=== PATIENT | male | born 1965 | race Hispanic/Latino ===

== ENCOUNTER 2017-07-16 17:16 | Emergency (ER) | payer SELFPAY ==
[2017-07-16] MEDS ORDERED: Ondansetron HCl/PF 4 MG/2 ML Vial ONE ×2 (17:32→18:51)
[2017-07-16] MEDS ORDERED: Pantoprazole 40 MG VIAL ONE (17:32)
[2017-07-16 17:40] LABS: #Lymphocytes 0.9 thou/uL (1.20-3.40); #Monocytes 0.6 thou/uL (0.11-0.59); #Neutrophils 6.9 thou/uL (1.40-6.50); %Basophils 0.3 % (0.0-1.0); %Eosinophils 0.2 % (0.0-10.0); %Lymphocytes 11.1 % (21.0-51.0); %Monocytes 6.5 % (0.0-10.0); Hematocrit 41.4 % (42.0-52.0); Red Blood Cell (RBC) Count 4.35 mill/uL (4.70-6.10); White Blood Cell (WBC) Count 8.5 thou/uL (4.8-10.8)
[2017-07-16 17:45] LABS: PTT 34.6 SEC (22.9-36.1); Prothrombin Time 17.8 SEC (12.0-14.7)
--- NOTE | 2017-07-16 17:52 | RAD ---
UIPRIGHT PORTABLE CHEST ONE VIEW: History: 52-year-old male with chest pain and vomiting blood. FINDINGS: Monitor leads overlie the chest. Heart size is within normal limits. The lungs are clear. IMPRESSION: No acute intrathoracic disease. POS: [facility]
[2017-07-16 17:59] LABS: ALT (SGPT) 38 U/L (8-55); AST (SGOT) 46 U/L (5-34); Alkaline Phosphatase 97 U/L (40-150); Anion Gap 16 mmol/L (10-20); BUN (Urea Nitrogen) 21 mg/dL (8.9-20.6); Calc. Creatinine Clearance 0 mL/min (70-130); Calcium 8.6 mg/dL (7.8-10.44); Carbon Dioxide 21 mmol/L (22-29); Chloride 102 mmol/L (98-107); Estimated GFR-MDRD Greater than 90; Globulin 4.3 g/dL (2.4-3.5); Lipase 19 U/L (8-78); Magnesium 1.8 mg/dL (1.6-2.6); Protein, Total 7.3 g/dL (6.0-8.3)
[2017-07-16 18:02] LABS: Mean Platelet Volume 8.2 fL (7.4-10.4)
[2017-07-16 18:03] LABS: Troponin I 0.015 ng/mL (< 0.028)
[2017-07-16 19:06] LABS: Bilirubin Negative (Negative); Blood, Urine Negative (Negative); Glucose, Urine (Dipstick) >=1000 mg/dL (Negative); Ketone, Urine 40 mg/dL (Negative); Nitrite Negative (Negative); Protein, Urine (Dipstick) Negative (Neg-Trace); Urobilinogen 0.2 mg/dL (0.2-1.0)
--- NOTE | 2017-07-16 20:54 | ULT ---
RIGHT UPPER QUADRANT ULTRASOUND: History: 52-year-old male with right upper quadrant pain, chest pain, nausea, vomiting. History of alcohol us e. FINDINGS: The gallbladder wall appears to be somewhat thickened with some pericholecystic fluid. There are no definite gallstones. Liver echotexture is very heterogeneous throughout with some nodularity raising concern for the possibility of some cirrhosis. Common duct approximates 0.5 cm. According to the trasound technologist, the Valencia's sign was slightly positive. Pancreas is mostly obscured. The rig ht kidney is unremarkable. IMPRESSION: Some gallbladder wall thickening and pericholecystic fluid without overt gallstones or ductal dilata tion. Normal liver echotexture with very coarse appearance and some minimal capsular nodularity rais ing concern for possibility of some cirrhosis. Slightly positive Valencia's sign. If there is concern for acute cholecystitis, follow up nuclear medicine hepatobiliary scan might be considered. POS: [facility]
== END 2017-07-16 21:25 | disposition home or self-care (01) ==
LOC: ERS 17:16
DX: K92.2 Gastrointestinal hemorrhage, unspecified (principal)
CPT/HCPCS: 71010; 76705; 80053; 81003; 82553; 83690; 83735; 84484; 85025; 85610; 85730; 93005; 96361; 96374; 96375; 96376; C9113; J2405

== ENCOUNTER 2017-07-17 15:18 | Inpatient (IN) | payer SELFPAY ==
[2017-07-17 16:02] LABS: #Basophils 0.1 thou/uL (0.0-0.2); #Eosinphils 0.1 thou/uL (0.0-0.7); #Lymphocytes 1.6 thou/uL (1.20-3.40); #Monocytes 1.1 thou/uL (0.11-0.59); #Neutrophils 7.8 thou/uL (1.40-6.50); %Basophils 0.6 % (0.0-1.0); %Eosinophils 0.7 % (0.0-10.0); %Lymphocytes 14.9 % (21.0-51.0); %Monocytes 10.2 % (0.0-10.0); Hematocrit 29.6 % (42.0-52.0); Mean Platelet Volume 8.6 fL (7.4-10.4); Red Blood Cell (RBC) Count 3.05 mill/uL (4.70-6.10); White Blood Cell (WBC) Count 10.5 thou/uL (4.8-10.8)
[2017-07-17] MEDS ORDERED: Pantoprazole 40 MG VIAL ONE (16:12)
[2017-07-17 16:19] LABS: ALT (SGPT) 29 U/L (8-55); AST (SGOT) 29 U/L (5-34); Alkaline Phosphatase 70 U/L (40-150); Anion Gap 9 mmol/L (10-20); BUN (Urea Nitrogen) 26 mg/dL (8.9-20.6); Bilirubin, Total 2.1 mg/dL (0.2-1.2); Calc. Creatinine Clearance 0 mL/min (70-130); Carbon Dioxide 25 mmol/L (22-29); Chloride 103 mmol/L (98-107); Estimated GFR-MDRD Greater than 90; Globulin 3.3 g/dL (2.4-3.5); Protein, Total 5.9 g/dL (6.0-8.3)
[2017-07-17 16:24] LABS: Prothrombin Time 19.4 SEC (12.0-14.7)
[2017-07-17 18:38] VITALS: BMI 35.5
[2017-07-17] MEDS ORDERED: Ondansetron HCl/PF 4 MG/2 ML Vial IVP PRN (18:38)
[2017-07-17] MEDS ORDERED: Ondansetron ODT 4 MG TAB SL PRN (18:38)
[2017-07-17] MEDS ORDERED: Dextrose 50% Abboject 50 ML SYRINGE SLOW IVP PRN (18:45)
[2017-07-17] MEDS ORDERED: Lactated Ringer's 1,000 ML IV SCH (18:45)
[2017-07-17] MEDS ORDERED: Dextrose 5% in Water 1,000 ML IV PRN (18:45)
[2017-07-17] MEDS ORDERED: HumaLOG 300 UNITS/3 ML VIAL SC PRN (18:45)
[2017-07-17] MEDS ORDERED: Sodium Chloride 0.9% 2,000 ML IV SCH (19:00)
[2017-07-17] MEDS ORDERED: Sodium Chloride 0.9% 1,000 ML IV SCH (19:15)
[2017-07-17] MEDS ORDERED: Octreotide Acetate 1,250 MCG in Sodium Chloride 0.9% 250 ML 250 ML IVPB SCH (19:15)
[2017-07-17 19:32] LABS: Hematocrit 28.3 % (42.0-52.0)
--- NOTE | 2017-07-17 19:36 | HP ---
DATE OF ADMISSION: 07/17/2017 CHIEF COMPLAINT: Pooping and throwing up blood. HISTORY OF PRESENT ILLNESS: Mr. Cash is a 52-year-old male with history of alcohol abuse what looks to be diabetes. The patient was in normal state of health. He yesterday develope d multiple black tarry stools and one episode of hematemesis. He has some chest discomfort with nicko t, so came to the emergency department for evaluation. His hemoglobin was normal at 14.1. I had no episodes here so he was discharged home with outpatient followup. Ultrasound yesterday showed poss ible cirrhosis and possible cholecystitis. Today, he saw Dr. Junior at the GI clinic. After getting history of melena, hematochezia, he was se nt back to the emergency department for evaluation. He has been lightheaded. He has continued to have melanotic stools every 5-10 minutes. He had one episode of vomiting today with a little bit of red blood in it, but not as bad as yesterday. Denies any chest pain or shortness of breath, no other complaints. Here in the ER today, his hemoglobin has dropped from 14.1 yesterday to 10.0 today. We subsequently called for admit. PAST MEDICAL HISTORY: 1. Alcohol abuse. 2. Probable diabetes. PAST SURGICAL HISTORY: Includes open middle ear infection debridement. HOME MEDICATIONS: Omeprazole 40 mg p.o. b.i.d. started yesterday here in the ER. He only took one dose. ALLERGIES: NKDA. FAMILY HISTORY: Negative for clotting or bleeding disorder, no immune dysfunction. SOCIAL HISTORY: Drinks greater than 10 drinks a day. He says sometimes upwards of a case of beer i n one day. No tobacco, no IV drug use. He is . REVIEW OF SYSTEMS: A 10-point review of systems was performed, negative for all other systems excep t as stated as per HPI. PHYSICAL EXAMINATION: VITAL SIGNS: Temperature 98.0, pulse 105, blood pressure 137/80, respiratory 18, O2 sat 98% on room air. GENERAL: He is awake. He is alert. He is oriented x3. He is a well-developed, mal e appears to be in no acute distress. HEENT: Normocephalic, atraumatic. Pupils equal, round, reactive to light bilaterally. Mucous memb ranes are moist. No visible lesion. No thrush. He does have scleral icterus. NECK: Supple, without lymphadenopathy, JVD or thyromegaly. LUNGS: Clear to auscultation bilaterally without wheezes, rales or rhonchi. CARDIOVASCULAR: Normal S1, S2. He has no S3, S4. He is slightly tachycardic, but regular. ABDOMEN: Soft, is nontender. I cannot palpate the liver edge. He has no fluid wave. No shifting dullness. He has no rebound, rigidity or guarding, and a possible mild Valencia sign. SKIN: Without jaundice. EXTREMITIES: Warm, moist, and well perfused without rashes or lesions. MUSCULOSKELETAL: Normal to inspection. He has no inflamed joint or no palpable joint effusion. NEUROLOGIC: Cranial nerves II-XII are grossly intact without any focal neurologic deficits. LABORATORY DATA: CMP showed a sodium of 133, potassium 4.3, chloride 103, bicarb 25, BUN 26, creati nine 0.69, and glucose of 312. INR is 1.6. Total bilirubin today is 2.1, down from 3.0 yesterday. Liver functions are otherwise normal. Albumin is low at 2.6. White blood cell count is 10.5, hemoglobin is 10.0 down from 14.1 yesterday, and platelets are 107,0 00 about the same. RADIOGRAPHIC STUDIES: 1. On 07/15/2017, ultrasound showed possible early cirrhosis. He has a slightly positive Valencia si gn. He did have some pericholecystic fluid, but no gallbladder wall thickening and no evidence of s tone blockage. 2. On 07/16/2017, he had a chest x-ray that showed no acute cardiopulmonary disease. ASSESSMENT AND PLAN: 1. Upper gastrointestinal bleed: The patient had hematemesis and melena. Suspect either peptic ul cer/duodenal ulcer or portal gastropathy with esophageal or gastric varices. The patient was starte d on Protonix drip in the emergency department, which we will continue. We will start on octreotide drip. GI, Dr. Altman, has been consulted. We will have the nurses call him tonight to make him awar e of the patient in case having changes. I will get serial H\T\Hs. I will give him a 2 liter bolus of normal saline, and continue IV fluids at 150 mL per hour. I will transfuse as needed. Keep the patient n.p.o. as he likely will need to go for EGD tomorrow. 2. Acute blood loss anemia: Hemoglobin is down to 10 likely will be less once he gets rehydrated. 3. Hyperglycemia: Probably representing diabetes mellitus type 2. We will check hemoglobin A1c in the morning. We will use sliding scale insulin per correction. Once he is able to eat, we will pl stephanie him on a diabetic diet and have the educator see him. We will get a q.6h Accu-Cheks n.p.o. 4. Alcohol abuse: Counseling. The patient will watch very closely for signs of withdrawal.
[2017-07-17] MEDS: Pantoprazole 80 MG, Admixture Fee 1 EACH in Sodium Chloride 0.9% 100 ML IVP SCH (20:33)
[2017-07-17] MEDS: Sodium Chloride 0.9% 1,000 ML IV SCH (20:47)
[2017-07-18] MEDS: Sodium Chloride 0.9% 1,000 ML IV SCH ×4 (03:26→22:48)
[2017-07-18] MEDS: Pantoprazole 80 MG, Admixture Fee 1 EACH in Sodium Chloride 0.9% 100 ML IVP SCH ×2 (03:26→14:06)
[2017-07-18 04:47] LABS: ALT (SGPT) 24 U/L (8-55); AST (SGOT) 30 U/L (5-34); Alkaline Phosphatase 55 U/L (40-150); Anion Gap 6 mmol/L (10-20); BUN (Urea Nitrogen) 23 mg/dL (8.9-20.6); Bilirubin, Total 1.4 mg/dL (0.2-1.2); Calc. Creatinine Clearance 206 mL/min (70-130); Calcium 7.6 mg/dL (7.8-10.44); Carbon Dioxide 25 mmol/L (22-29); Chloride 109 mmol/L (98-107); Estimated GFR-MDRD Greater than 90; Globulin 2.8 g/dL (2.4-3.5); Protein, Total 5.2 g/dL (6.0-8.3)
[2017-07-18 05:32] LABS: #Basophils 0.1 thou/uL (0.0-0.2); #Eosinphils 0.1 thou/uL (0.0-0.7); #Lymphocytes 1.4 thou/uL (1.20-3.40); #Monocytes 0.7 thou/uL (0.11-0.59); #Neutrophils 3.6 thou/uL (1.40-6.50); %Basophils 1.1 % (0.0-1.0); %Eosinophils 2.1 % (0.0-10.0); %Monocytes 12.3 % (0.0-10.0); Hematocrit 25.7 % (42.0-52.0); Mean Platelet Volume 8.6 fL (7.4-10.4); Red Blood Cell (RBC) Count 2.62 mill/uL (4.70-6.10); White Blood Cell (WBC) Count 5.9 thou/uL (4.8-10.8)
[2017-07-18 07:27] LABS: Hematocrit 26.8 % (42.0-52.0)
[2017-07-18] MEDS ORDERED: FLU VACC QS2017-18 36 mo. & older 0.5 ML SYRINGE IM ONE (09:00)
[2017-07-18 10:21] LABS: Hematocrit 27.7 % (42.0-52.0)
--- NOTE | 2017-07-18 10:28 | PDOC.PN ---
- Subjective Encounter Start Date: 07/18/17 Encounter Start Time: 07:30 PT reorts less melena and small amount of hematemesis. Nursing reports 3 overnight. TOlerating meds. Awaiitng GI consultation. no F/C, no Nausea, no CP or sOB, no anxiety or agitation 10 point ROS performed and neg fora ll systems except as per HPI. at bedside, updated. - Objective Resuscitation Status: Resuscitation Status FULL:Full Resuscitation MAR Reviewed: Yes Vital Signs & Weight: Vital Signs (12 hours) Temp Pulse Resp BP BP Pulse Ox 07/18/17 07:21 98.5 F 76 20 106/56 L 98 07/18/17 03:42 97.9 F 70 16 109/47 L 97 07/17/17 23:40 98.6 F 87 14 114/58 L 95 Weight Weight 218 lb 4.8 oz I&O: 07/17/17 07/18/17 07/19/17 06:59 06:59 06:59 Intake Total 3150 Output Total 700 Balance 2450 Result Diagrams: 07/18/17 10:07 07/18/17 04:07 Additional Labs: Accuchecks 07/18/17 07/17/17 05:35 23:38 POC Glucose 196 H 211 H Radiology Reviewed by me: Yes EKG Reviewed by me: Yes Phys Exam - Physical Examination Constitutional: NAD HEENT: PERRLA, moist MMs, oral pharynx no lesions scleral icterus much better Neck: no nodes, no JVD, supple, full ROM Respiratory: no wheezing, no rales, no rhonchi, clear to auscultation bilateral Cardiovascular: RRR, no significant murmur, no rub Gastrointestinal: soft, non-tender, no distention, positive bowel sounds Musculoskeletal: pulses present, edema present Neurological: non-focal, normal sensation, moves all 4 limbs Lymphatic: no nodes Psychiatric: normal affect, A&O x 3 Skin: no rash, normal turgor, cap refill <2 seconds Dx/Plan (1) UGIB (upper gastrointestinal bleed) Code(s): K92.2 - GASTROINTESTINAL HEMORRHAGE, UNSPECIFIED Status: Acute Comment: PUD/DU or variceal. On protonix gtt, on octreotide gtt. H/H stalbized out now. awaiting GI eval. Pt NPO for expected EGD (2) Acute blood loss anemia Code(s): D62 - ACUTE POSTHEMORRHAGIC ANEMIA Status: Acute Comment: stable at around 9 at present (3) Cirrhosis Code(s): K74.60 - UNSPECIFIED CIRRHOSIS OF LIVER Status: Acute Qualifiers: Hepatic cirrhosis type: alcoholic cirrhosis Ascites presence: with ascites Qualified Code(s): K70.31 - Alcoholic cirrhosis of liver with ascites Comment: small amount of ascites, U/Ds compatible with early cirrhosis. (4) ETOH abuse Code(s): F10.10 - ALCOHOL ABUSE, UNCOMPLICATED Status: Chronic Comment: watching for S/Sx of withdrawl (5) DM2 (diabetes mellitus, type 2) Status: Acute Qualifiers: Diabetes mellitus complication status: without complication Diabetes mellitus skilled nursing insulin use: without skilled nursing use Qualified Code(s): E11.9 - Type 2 diabetes mellitus without complications Comment: newly diagnoses. SSI for now. A1C for AM - Plan cont current plan of care * .
[2017-07-18] MEDS ORDERED: Propofol 200 MG/20 ML VIAL ONE (18:34)
[2017-07-18] MEDS ORDERED: Meperidine HCl/PF 25 MG/ML VIAL SLOW IVP PRN (19:05)
[2017-07-18] MEDS ORDERED: Promethazine HCl 25 MG/ML VIAL IM PRN (19:05)
[2017-07-18] MEDS ORDERED: Promethazine HCl 25 MG/ML VIAL SLOW IVP PRN (19:05)
[2017-07-18] MEDS ORDERED: Ondansetron HCl/PF 4 MG/2 ML Vial IVP PRN (19:05)
--- NOTE | 2017-07-18 19:09 | CON ---
DATE OF CONSULTATION: 07/18/2017 TYPE OF CONSULTATION: Gastroenterology Consultation. CHIEF COMPLAINT: Blood in stool. HISTORY OF PRESENT ILLNESS: Mr. Cash is a 52-year-old man who presented to the emergency room cruz ginally the day before yesterday. He had reported vomiting coffee ground material and passing black stools. He had a hemoglobin of 14 and was ultimately discharged from the ER and he followed up in GI clinic with Dr. Junior yesterday the next day. Dr. Junior examined him and the patient was found again to have melena and tachycardia and he was admitted to the hospital from clinic. He was start ed on pantoprazole drip and octreotide drip. GI was consulted for further management. Currently, alma mijares reports having passed 2 black stools yesterday and vomiting some coffee ground material and passin g black stools the day before that. Today, he has had no further vomiting, but he has passed 2 or 3 black stools again. He did have some aching pain in the lower substernal region yesterday, but nicko t has since resolved. He has had no diarrhea or constipation, otherwise. No weight loss. No fever or chills. PAST MEDICAL HISTORY: Otherwise, negative. PAST SURGICAL HISTORY: He had a surgery above his right ear for an infection many years ago. FAMILY HISTORY: Negative for GI malignancies. SOCIAL HISTORY: Drinks a case of beer per day. He does not smoke. No drugs. ALLERGIES: No known drug allergies. MEDICATIONS PRIOR TO ADMISSION: None. REVIEW OF SYSTEMS: Negative x10 systems reviewed except as stated in the history of present illness . PHYSICAL EXAMINATION: VITAL SIGNS: Temperature 98.6, pulse 68, blood pressure 127/65. GENERAL: He is in no acute distress, awake, alert, and oriented x3. EYES: Eyes have no scleral icterus. OROPHARYNX: Clear without lesions. NECK: No cervical or supraclavicular lymphadenopathy. SKIN: He has spider angiomas on the upper skin on dermatologic exam. LUNGS: Clear to auscultation bilaterally. HEART: Regular rate and rhythm without murmur. ABDOMEN: Soft, nontender, nondistended. Bowel sounds are present. EXTREMITIES: No lower extremity edema. NEUROLOGIC: There is no asterixis. LABORATORY DATA: White blood cell count 5.9, hemoglobin is down to 8.8 from 14.1 two days ago, plat elets 67,000. His INR is 1.6, creatinine 0.60, bilirubin 1.4, AST 30, ALT 24, alkaline phosphatase 55, albumin 2.4. IMPRESSION: 1. Decompensated alcoholic cirrhosis. He has a nodular liver by ultrasound. We will need to check viral hepatitis status and an iron saturation. 2. Gastrointestinal bleed. Rule out varices. 3. Anemia of acute blood loss. 4. Alcohol abuse. RECOMMENDATIONS: 1. Proton pump inhibitor drip. 2. Octreotide drip. 3. He has no ascites and therefore, we will hold off antibiotics at this time. PLAN: 1. EGD today. 2. Follow the trend of the hemoglobin. 3. Check alpha fetoprotein and viral hepatitis screen and iron saturation.
[2017-07-18 19:13] LABS: Iron 40 ug/dL (65-175)
--- NOTE | 2017-07-18 19:21 | OP ---
DATE OF PROCEDURE: 07/18/2017 PROCEDURE: Esophagogastroduodenoscopy with control of hemorrhage with banding of esophageal varices . PREOPERATIVE DIAGNOSIS: Gastrointestinal bleed and anemia of acute blood loss and cirrhosis of the liver. OPERATIVE NOTE: Informed consent was obtained from the patient. He was sedated with total intraven ous anesthesia. The bite block was placed and the endoscope was advanced easily to the second porti on of the duodenum and retroflexion was performed in the stomach. The esophagus had 3 columns of gr cherie 2 varices with few red signs in the distal esophagus. There was one column of grade 1 varix. T here were no gastric varices noted on retroflexed views. There was mild erosive gastritis in the an trum. The pylorus and first and second portions of the duodenum were normal. Four rubber bands wer e placed over the esophageal varices. Good hemostasis was confirmed. There was no active bleeding at the time of the procedure. There was no blood in the stomach. IMPRESSION: 1. Three columns grade 2 varices with red signs, one column of grade 1 varix. 2. Mild erosive antral gastritis. 3. Otherwise normal esophagogastroduodenoscopy. No gastric varices. 4. Four bands were placed over the esophageal varices. There was no active bleeding at the time of the procedure. Good hemostasis was confirmed. RECOMMENDATIONS: 1. Continue octreotide. 2. Change the Protonix to q.12 hours. 3. Check H. pylori antibody. 4. Consider repeat EGD in 2-4 weeks to reassess the banding sites and place new bands if indicated.
--- NOTE | 2017-07-18 20:05 | ADD-OP ---
ADDENDUM PROCEDURE: Four rubber bands were placed over the esophageal varices. Good hemostasis was confirme d. There was no active bleeding at the time of the procedure. There was no blood in the stomach. IMPRESSION: Four bands were placed over the esophageal varices. There was no active bleeding at th e time of the procedure. Good hemostasis was confirmed. RECOMMENDATIONS: Consider repeat EGD in 2-4 weeks to reassess the banding sites and place new bands if indicated.
[2017-07-19] MEDS: Pantoprazole 80 MG, Admixture Fee 1 EACH in Sodium Chloride 0.9% 100 ML IVP SCH (02:17)
[2017-07-19 04:54] LABS: #Basophils 0.1 thou/uL (0.0-0.2); #Eosinphils 0.1 thou/uL (0.0-0.7); #Lymphocytes 0.9 thou/uL (1.20-3.40); #Monocytes 0.4 thou/uL (0.11-0.59); %Basophils 1.1 % (0.0-1.0); %Eosinophils 3.2 % (0.0-10.0); %Lymphocytes 19.5 % (21.0-51.0); %Monocytes 9.7 % (0.0-10.0); Hematocrit 25.2 % (42.0-52.0); Mean Platelet Volume 8.6 fL (7.4-10.4); Red Blood Cell (RBC) Count 2.57 mill/uL (4.70-6.10); White Blood Cell (WBC) Count 4.5 thou/uL (4.8-10.8)
[2017-07-19 05:14] LABS: Anion Gap 10 mmol/L (10-20); BUN (Urea Nitrogen) 21 mg/dL (8.9-20.6); Calc. Creatinine Clearance 225 mL/min (70-130); Calcium 7.2 mg/dL (7.8-10.44); Carbon Dioxide 21 mmol/L (22-29); Chloride 111 mmol/L (98-107); Estimated GFR-MDRD Greater than 90
[2017-07-19 05:17] LABS: Hemoglobin A1c 6.3 % (4.0-6.0)
[2017-07-19] MEDS: Sodium Chloride 0.9% 1,000 ML IV SCH ×2 (05:43→14:42)
--- NOTE | 2017-07-19 10:32 | PDOC.PN ---
- Subjective Encounter Start Date: 07/19/17 Encounter Start Time: 08:00 Pt seen and exmained earlier on rounds. EGD last evening, esophagela varies seen, Abd U/S confirmed cirrhosis. PT received 4 varcials bands, no evifdence of further bleeding. H/h stable, hungry. Octreotide stopped by GI, no ulcers seen. No new complaints, no acute events. No F/C, no N/V/d/C, no CP orSOB, no signs of withdrawl 10 point ROS performed and neg for all systems except as above - Objective Resuscitation Status: Resuscitation Status FULL:Full Resuscitation MAR Reviewed: Yes Vital Signs & Weight: Vital Signs (12 hours) Temp Pulse Resp BP Pulse Ox 07/19/17 07:17 98.9 F 81 15 130/65 98 07/19/17 04:00 98.1 F 72 18 120/66 98 07/19/17 00:00 98.2 F 72 18 103/64 97 Weight Weight 216 lb 14.4 oz I&O: 07/18/17 07/19/17 07/20/17 06:59 06:59 06:59 Intake Total 3150 1800 Output Total 700 Balance 2450 1800 Result Diagrams: 07/19/17 03:54 07/19/17 03:54 Additional Labs: Accuchecks 07/19/17 07/19/17 07/18/17 05:45 00:16 17:06 POC Glucose 149 H 145 H 170 H 07/18/17 11:51 POC Glucose 233 H Radiology Reviewed by me: Yes EKG Reviewed by me: Yes Phys Exam - Physical Examination Constitutional: NAD HEENT: PERRLA, moist MMs, sclera anicteric, oral pharynx no lesions Neck: no nodes, no JVD, supple, full ROM Respiratory: no wheezing, no rales, no rhonchi, clear to auscultation bilateral Cardiovascular: RRR, no significant murmur, no rub Gastrointestinal: soft, non-tender, no distention, positive bowel sounds Musculoskeletal: no edema, pulses present Neurological: non-focal, normal sensation, moves all 4 limbs Lymphatic: no nodes Psychiatric: normal affect, A&O x 3 Skin: no rash, normal turgor, cap refill <2 seconds Dx/Plan (1) UGIB (upper gastrointestinal bleed) Code(s): K92.2 - GASTROINTESTINAL HEMORRHAGE, UNSPECIFIED Status: Acute Comment: Variceal. On protonix gtt, off octreotide gtt. H/H stalbized out now. S/P EGDand banding. Will trnasition to po protinix and stop the drip. TO floor if okay with GI (2) Acute blood loss anemia Code(s): D62 - ACUTE POSTHEMORRHAGIC ANEMIA Status: Acute Comment: stable at around 9 at present (3) Cirrhosis Code(s): K74.60 - UNSPECIFIED CIRRHOSIS OF LIVER Status: Acute Qualifiers: Hepatic cirrhosis type: alcoholic cirrhosis Ascites presence: without ascites Qualified Code(s): K70.30 - Alcoholic cirrhosis of liver without ascites Comment: small amount of ascites, U/S compatible with early cirrhosis. (4) ETOH abuse Code(s): F10.10 - ALCOHOL ABUSE, UNCOMPLICATED Status: Chronic Comment: watching for S/Sx of withdrawl. Protocol ordered (5) DM2 (diabetes mellitus, type 2) Status: Acute Qualifiers: Diabetes mellitus complication status: without complication Diabetes mellitus long chain beamer insulin use: without usp use Qualified Code(s): E11.9 - Type 2 diabetes mellitus without complications Comment: newly diagnoses. SSI for now. A1C actually pretty low - Plan * .
--- NOTE | 2017-07-20 01:35 | PRG ---
DATE OF SERVICE: 07/19/2017 SUBJECTIVE: Mr. Cash is a 52-year-old, who was admitted to the hospital from my office on the 30t h, admitted to the emergency room apparently over the weekend with melena, hematemesis. He was disc harged to home with hemoglobin of 14. He had an ultrasound that showed cirrhosis as well. They cam e and saw me in the morning of the . He was found to have melena again and he was sent to the e mergency room for evaluation for acute GI bleeding. He was admitted to the hospital and placed on P PIs, hemoglobin of 9.8. He had endoscopy yesterday, which showed varices, which were banded. Prese ntly he is without complaints and wants to go home. He states he is going to stop drinking alcohol. He has had no fever or chills. No prior problems withdrawals. OBJECTIVE: VITAL SIGNS: Temperature is 98, pulse 75, blood pressure 157/73. ABDOMEN: Slightly protuberant, maybe some shifting dullness. EXTREMITIES: Revealed no edema. SKIN: Without rash or lesions. LABORATORY STUDIES: White count is 4.5, hemoglobin 8.8, platelet count 63,000. INR is 1.6. On adm ission, bilirubin was 1.4. AST and ALT were 30 and 24, albumin is 2.4, BUN and creatinine are 23 an d 0.6, glucose 196. Today, BUN and creatinine were 21 and 0.55. ASSESSMENT: 1. Gastrointestinal hemorrhage, likely related to variceal bleeding. 2. Cirrhosis, likely related to alcohol. 3. Hepatitis A, B, and C negative. RECOMMENDATIONS: 1. Change to p.o. PPIs. 2. Beta gage would be reasonable for prophylaxis of varices. Avoidance of alcohol is recommende d. Multivitamin, thiamine, and folate would be reasonable in light of his heavy alcohol use. Andi t EGD in 2 weeks. We can advance his diet if he has no further vomiting or melena and stable hemogl obin. He can probably go home tomorrow.
[2017-07-20 04:26] LABS: Anion Gap 8 mmol/L (10-20); BUN (Urea Nitrogen) 16 mg/dL (8.9-20.6); Calc. Creatinine Clearance 220 mL/min (70-130); Calcium 7.3 mg/dL (7.8-10.44); Carbon Dioxide 23 mmol/L (22-29); Chloride 105 mmol/L (98-107); Estimated GFR-MDRD Greater than 90
[2017-07-20 04:34] LABS: #Eosinphils 0.2 thou/uL (0.0-0.7); #Lymphocytes 1.4 thou/uL (1.20-3.40); #Monocytes 0.6 thou/uL (0.11-0.59); #Neutrophils 2.3 thou/uL (1.40-6.50); %Basophils 0.8 % (0.0-1.0); %Eosinophils 5.2 % (0.0-10.0); %Lymphocytes 31.1 % (21.0-51.0); %Monocytes 12.5 % (0.0-10.0); Mean Platelet Volume 8.5 fL (7.4-10.4); Red Blood Cell (RBC) Count 2.59 mill/uL (4.70-6.10); White Blood Cell (WBC) Count 4.5 thou/uL (4.8-10.8)
[2017-07-20] MEDS ORDERED: Multivit, Therapeutic 1 TAB PO SCH (09:00)
[2017-07-20] MEDS ORDERED: Folic Acid 1 MG TAB PO SCH (09:00)
--- NOTE | 2017-07-20 11:45 | DIS ---
DATE OF ADMISSION: 07/17/2017 DATE OF DISCHARGE: 07/20/2017 PRIMARY CARE PHYSICIAN: [facility] call admission. DISCHARGE DISPOSITION: Home. PRIMARY DISCHARGE DIAGNOSES: 1. Acute upper gastrointestinal bleed due to variceal bleed. 2. Acute blood loss anemia. SECONDARY DISCHARGE DIAGNOSES: Alcoholic cirrhosis of liver, alcohol abuse, diabetes type 2, obesit y with body mass index 35. PRIMARY PROCEDURE/OPERATION: Upper endoscopy was performed by Dr. Barbosa and patient had variceal ba nding. RADIOLOGICAL INVESTIGATION: Abdominal ultrasound and chest x-ray. SIGNIFICANT LABORATORY DATA: Hemoglobin 8.5. INR 1.6, creatinine 0.56, alphafetoprotein level 4.0. Hepatitis profile negative. Hepatitis A total antibody was positive. DISCHARGE MEDICATIONS: Vitamin B12 1000 mcg p.o. daily, ferrous sulfate 325 mg p.o. daily, folic ac id 1 mg p.o. daily, multivitamin 1 tablet p.o. daily, Protonix 40 mg p.o. daily, Inderal 10 mg t.i.d ., and thiamine 100 mg p.o. daily. CONTRAINDICATIONS: None. CODE STATUS: FULL CODE. INPATIENT GENERAL LABOR FORKLIFT OPERATOR: Dr. Barbosa was following while in hospital. TEST RESULTS PENDING ON DISCHARGE: None. ALLERGIES: No known drug allergies. DISCHARGE PLAN: Post hospital, patient is advised to follow up with Dr. Junior for repeat endoscopy in 2-3 weeks. HOSPITAL COURSE: A 52-year-old male who was admitted by Dr. Skip Martínez. Please see his H\T\P for further details. The patient had abdominal ultrasound which showed findings suggestive of gallbladd er wall thickening, but it was related with hypoalbuminemia. This patient has underlying history of alcoholic cirrhosis of liver. He presented to emergency room with complaint of GI bleed. His GI b leed was attributed to be due to variceal bleed. He underwent upper endoscopy and patient was found with varices and banding was performed. This patient was treated with octreotide drip and Protonix while in hospital. On discharge, we adde d Inderal for prophylactic therapy. Patient was transferred to medical floor. He did not require a ny blood transfusion during this admission. His hemoglobin and hematocrit remained stable. He did not have any further bleeding. We provided patient education to avoid alcohol product. He will continue his diabetes medicines. Wes mijares prescribed him metformin 850 mg p.o. b.i.d. CONTRAINDICATIONS: None. CODE STATUS: FULL CODE. INPATIENT CONSULTANTS: Patient will follow up with Dr. Junior and primary care physician. HOSPITAL COURSE: A 52-year-old male who was admitted by Dr. Skip Martínez and patient was admitted fo r upper GI bleed and patient was found with variceal bleed. He had banding performed by Dr. Barbosa. He was treated for GI bleed with Protonix drip and octreotide drip and subsequently he was transfer red to medical floor. He did not require any blood transfusion. During this admission, he remained stable. The patient is seen and examined at bedside. PHYSICAL EXAMINATION: VITAL SIGNS: Currently, temperature 98.0, pulse 72, respiratory rate 16, saturation 96%, blood pres sure 136/73. Weight 216 pounds. GENERAL: The patient is currently alert, awake, in no acute distress. HEAD: Normocephalic, atraumatic. LUNGS: Clear. CARDIAC: S1, S2 regular without any murmur. ABDOMEN: Soft and benign without any tenderness. EXTREMITIES: No edema. NEUROLOGIC: Nonfocal examination.
[2017-07-20 11:57] VITALS: BP 137/75; TEMP 98.3
--- NOTE | 2017-07-22 18:13 | EKG ---
Test Reason : Blood Pressure : / mmHG Vent. Rate : 092 BPM Atrial Rate : 092 BPM P-R Int : 132 ms QRS Dur : 086 ms QT Int : 370 ms P-R-T Axes : 043 028 063 degrees QTc Int : 457 ms Normal sinus rhythm Normal ECG Confirmed by MARC MAY M.D. ([id number]), story editor GARY CHAUDHARY ([id number]) on 07/22/2017 6:13:09 PM Referred By: Confirmed By:MARC MAY M.D.
== END 2017-07-20 14:36 | disposition home or self-care (01) | DRG 432 ==
LOC: ERS 15:18 → IMCU/EMU 18:30 → T4-A 07-19 12:30
PROVIDERS: ADMIT Internal Medicine Infectious Disease; ATTEND Internal Medicine Infectious Disease
PROC: 06L38CZ Occlusion of Esophageal Vein with Extraluminal Device, Via Natural or Artificial Opening Endoscopic (ICD-10-PCS; principal; 2017-07-18)
DX: K70.30 Alcoholic cirrhosis of liver without ascites (principal); I85.11 Secondary esophageal varices with bleeding; D62 Acute posthemorrhagic anemia; F10.10 Alcohol abuse, uncomplicated; K29.00 Acute gastritis without bleeding; E66.9 Obesity, unspecified; Z68.35 Body mass index [BMI] 35.0-35.9, adult; E11.9 Type 2 diabetes mellitus without complications
CPT/HCPCS: 36415; 36416; 80048; 80053; 82105; 82728; 83036; 83540; 83550; 85025; 85610; 86704; 86706; 86708; 86803; 86850; 86900; 86901; 87340; 93005; 96365; 96366; A4216; C9113; J2354; J2704; J7050

== ENCOUNTER 2017-07-28 07:30 | Emergency (ER) | payer OTHER, SELFPAY ==
[2017-07-28 08:44] LABS: #Basophils 0.1 thou/uL (0.0-0.2); #Eosinphils 0.1 thou/uL (0.0-0.7); #Lymphocytes 1.1 thou/uL (1.20-3.40); #Monocytes 0.5 thou/uL (0.11-0.59); #Neutrophils 2.5 thou/uL (1.40-6.50); %Basophils 1.3 % (0.0-1.0); %Eosinophils 2.8 % (0.0-10.0); %Lymphocytes 24.9 % (21.0-51.0); %Monocytes 12.2 % (0.0-10.0); Hematocrit 31.9 % (42.0-52.0); Mean Platelet Volume 8.8 fL (7.4-10.4); Red Blood Cell (RBC) Count 3.36 mill/uL (4.70-6.10); White Blood Cell (WBC) Count 4.3 thou/uL (4.8-10.8)
[2017-07-28 08:56] LABS: ALT (SGPT) 47 U/L (8-55); AST (SGOT) 44 U/L (5-34); Alkaline Phosphatase 97 U/L (40-150); Anion Gap 12 mmol/L (10-20); BUN (Urea Nitrogen) 7 mg/dL (8.9-20.6); Bilirubin, Total 1.2 mg/dL (0.2-1.2); Calc. Creatinine Clearance 0 mL/min (70-130); Calcium 8.1 mg/dL (7.8-10.44); Carbon Dioxide 22 mmol/L (22-29); Chloride 105 mmol/L (98-107); Estimated GFR-MDRD Greater than 90; Globulin 3.5 g/dL (2.4-3.5); Protein, Total 6.2 g/dL (6.0-8.3)
[2017-07-28] MEDS ORDERED: Furosemide 40 MG TAB ONE (09:29)
== END 2017-07-28 09:45 | disposition home or self-care (01) ==
LOC: ERS 07:30
DX: R18.8 Other ascites (principal); Z79.899 Other long term (current) drug therapy; Z79.84 Long term (current) use of oral hypoglycemic drugs
CPT/HCPCS: 36415; 80053; 83880; 85025; 99284

== ENCOUNTER 2017-08-03 07:19 | Day surgery (SDC) | payer OTHER, SELFPAY ==
[2017-08-02 07:22] VITALS: BMI 35.2
[~2017-08-03 07:19] MED LIST: FLU VACC QS2017-18 36 mo. & older 0.5 ML SYRINGE IM ONE
[2017-08-03] MEDS ORDERED: Sodium Bicarbonate 2.4 MEQ/5 ML ONE (07:49)
[2017-08-03] MEDS ORDERED: Albumin 25% 0 ML ONE (07:49)
--- NOTE | 2017-08-03 08:53 | ULT ---
ULTRASOUND GUIDED PARACENTESIS: Date: 08/03/17 COMPARISON: None. HISTORY: Alcoholic cirrhosis, symptomatic ascites. FINDINGS: Informed consent for ultrasound guided paracentesis obtained prior to the procedure. Preprocedural im aging demonstrates diffuse ascites throughout the abdomen/pelvis with the largest pocket in the right lower quadrant. Skin overlying this region was prepped and draped in the normal sterile fashion and anesthetized with 1% buffered lidocaine. With direct sonographic guidance, a 5 Kh[place] catheter was advanced into the ascites in the right lower quadrant and removal of stylette yields clear, yellow fluid. 2,900 mL were removed. The patien t tolerated the procedure well. IMPRESSION: Successful ultrasound guided paracentesis, yielding 2,900 mL of clear, yellow fluid. Samples of the f luid were sent to the laboratory for assessment. POS: MARY
[2017-08-03 09:52] LABS: BF Reference Range Comment Note:
[2017-08-03 10:55] LABS: BF Color Yellow
[2017-08-03 10:57] LABS: BF WBC/Nonhematics Ct. - Manua 195 /cumm
[2017-08-03 11:46] LABS: Fluid, Glucose 144 mg/dL (Not Available); Fluid, Protein Less than 1.0 g/dL (Not Available)
[2017-08-03 11:58] LABS: Number Cells Counted-Fluids 100
[2017-08-03 12:51] VITALS: BP 123/70; TEMP 98.2
== END 2017-08-03 09:00 | disposition home or self-care (01) ==
LOC: ULT 07:19
PROVIDERS: ATTEND Internal Medicine Gastroenterology
PROC: 0W9G3ZX Drainage of Peritoneal Cavity, Percutaneous Approach, Diagnostic (ICD-10-PCS; principal; 2017-08-03)
DX: K70.31 Alcoholic cirrhosis of liver with ascites (principal); F10.10 Alcohol abuse, uncomplicated; E11.9 Type 2 diabetes mellitus without complications; F17.200 Nicotine dependence, unspecified, uncomplicated; E66.9 Obesity, unspecified; Z68.35 Body mass index [BMI] 35.0-35.9, adult; Z79.899 Other long term (current) drug therapy; Z98.890 Other specified postprocedural states
CPT/HCPCS: 49083; 82042; 82945; 84157; 85060; 87070; 87205; 89051; P9047

== ENCOUNTER 2017-09-24 18:30 | Emergency (ER) | payer OTHER, SELFPAY ==
[2017-09-24 19:07] LABS: #Eosinphils 0.2 thou/uL (0.0-0.7); #Lymphocytes 1.1 thou/uL (1.20-3.40); #Monocytes 0.4 thou/uL (0.11-0.59); #Neutrophils 1.4 thou/uL (1.40-6.50); %Basophils 0.9 % (0.0-1.0); %Eosinophils 6.4 % (0.0-10.0); %Lymphocytes 34.7 % (21.0-51.0); %Monocytes 12.3 % (0.0-10.0); %Neutrophils 45.7 % (42.0-75.0); Hemoglobin 11.4 g/dL (14.0-18.0); Mean Corpuscular HGB CONC 33.3 g/dL (32.0-36.0); Mean Corpuscular Hemoglobin 28.3 pg (27.0-31.0); Mean Corpuscular Volume 85.2 fl (80.0-94.0); Mean Platelet Volume 8.8 fL (7.4-10.4); Platelet Count 66 thou/uL (130-400); RBC Distribution Width 13.9 % (11.5-14.5); Red Blood Cell (RBC) Count 4.02 mill/uL (4.70-6.10); White Blood Cell (WBC) Count 3.1 thou/uL (4.8-10.8)
[2017-09-24 19:30] LABS: ALT (SGPT) 15 U/L (8-55); AST (SGOT) 19 U/L (5-34); Albumin 2.7 g/dL (3.5-5.0); Alkaline Phosphatase 103 U/L (40-150); Anion Gap 9 mmol/L (10-20); BUN (Urea Nitrogen) 8 mg/dL (8.9-20.6); Calc. Creatinine Clearance 0 mL/min (70-130); Calcium 8.7 mg/dL (7.8-10.44); Carbon Dioxide 24 mmol/L (22-29); Chloride 108 mmol/L (98-107); Estimated GFR-MDRD Greater than 90; Globulin 4.2 g/dL (2.4-3.5); Glucose 255 mg/dL (70-105); Protein, Total 6.9 g/dL (6.0-8.3); Sodium 137 mmol/L (136-145)
[2017-09-25 00:09] LABS: Bilirubin Small (Negative); Blood, Urine Negative (Negative); Clarity CLEAR (Clear); Glucose, Urine (Dipstick) >=1000 mg/dL (Negative); Leukocyte Negative (Negative); Nitrite Negative (Negative); Protein, Urine (Dipstick) Negative (Neg-Trace); Specific Gravity, Urine 1.036 (1.002-1.036); pH, Urine 6.5 (5.0-9.0)
[2017-09-25 01:52] LABS: BF Color Yellow; Body Fluid Source Ascites Body Fluid; Clarity Hazy (Clear); Tube # TUBE
[2017-09-25 01:53] LABS: BF RBC Count - Manual 510 /cumm; WBC/NonHematic-Auto 273 /cumm
[2017-09-25 02:09] LABS: BF Segmented Neutrophils 16 %; Cell Count Non Hematic 23 %; Lymphocytes 61 %
== END 2017-09-25 02:01 | disposition home or self-care (01) ==
LOC: ERS 18:30
DX: R18.8 Other ascites (principal); E11.9 Type 2 diabetes mellitus without complications
CPT/HCPCS: 36415; 36430; 49083; 80053; 81003; 82945; 85025; 85060; 86850; 86900; 86901; 87070; 87205; 89051; 96360; P9035

== ENCOUNTER 2017-12-21 10:17 | Day surgery (SDC) | payer OTHER, SELFPAY ==
[2017-12-20 15:04] VITALS: BMI 33.5
[2017-12-21] MEDS ORDERED: Lidocaine 1% PF 5 ML VIAL ONE (14:39)
[2017-12-21] MEDS ORDERED: PROPOFOL 200 MG/20 ML VIAL ONE (14:39)
--- NOTE | 2017-12-21 17:53 | OP ---
PREPROCEDURE DIAGNOSES: 1. 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 2. Abstinent now for several months. 3. History of gastrointestinal hemorrhage from esophageal varices status post banding, 07/18/2017. POSTPROCEDURE DIAGNOSES: 1. Grade III esophageal varices in distal esophagus, no stigmata or any high risk for bleeding with prior history of variceal bleeding. These were banded x5. 2. Colonoscopy with some changes of portal colopathy. RECOMMENDATIONS: 1. Continue Lasix, will decrease to 20 mg daily and Aldactone to 50 mg a day. 2. Continue to avoid alcohol. 3. Continue low salt diet. 4. Followup in the office in 6 months. 5. Follow up with primary care physician regarding elevated sugars and diabetes. ANESTHESIA: TIVA. PROCEDURE IN DETAIL: After the patient was informed of the risks, benefits, possible complications o f endoscopy including perforation, bleeding, reactions to medication and aspiration, informed consent was obtained. The patient was adequately sedated, the upper endoscope was advanced through the bite block and esophagus carefully intubated under direct visualization. The esophagus, stomach, and sec ond and third portion of duodenum and slowly removed. There was good visualization of mucosa. There were grade 2-3 varices in distal esophagus. These were banded. The stomach had some mild portal ga stropathy with no varices. Retroflexed views in the stomach were normal with no evidence of cardiac varices. The duodenum was normal to the third portion. The scope was removed. The patient was turn ed in the room and rectal exam was performed. The endoscope was advanced through the anal canal thro ugh the colon and advanced to the cecum, identified with appendiceal orifice and ileocecal valve. Th e scope was removed. There was good visualization of the mucosa. There was no mass, lesions or AV m alformations identified. There was some mild portal colopathy. There were no changes to suggest cau se of iron deficiency anemia. The scope was removed after retroflexed views in the rectum were geri l. The patient tolerated procedure well with no complications.
== END 2017-12-21 12:58 | disposition home or self-care (01) ==
LOC: CANPRESDC → SDC 10:17
PROVIDERS: ATTEND Internal Medicine Gastroenterology
PROC: 0DJD8ZZ Inspection of Lower Intestinal Tract, Via Natural or Artificial Opening Endoscopic (ICD-10-PCS; principal; 2017-12-21)
PROC: 06L38CZ Occlusion of Esophageal Vein with Extraluminal Device, Via Natural or Artificial Opening Endoscopic (ICD-10-PCS; principal; 2017-12-21)
DX: K76.6 Portal hypertension (principal); K70.30 Alcoholic cirrhosis of liver without ascites; K31.89 Other diseases of stomach and duodenum; I85.10 Secondary esophageal varices without bleeding; K63.89 Other specified diseases of intestine; F10.11 Alcohol abuse, in remission; Z79.899 Other long term (current) drug therapy; Z98.890 Other specified postprocedural states
CPT/HCPCS: 36416; J2001; J2704

== ENCOUNTER 2018-04-29 10:34 | Inpatient (IN) | payer SELFPAY ==
[2018-04-29 11:10] LABS: #Lymphocytes 1.2 thou/uL (1.20-3.40); #Monocytes 0.7 thou/uL (0.11-0.59); #Neutrophils 6.6 thou/uL (1.40-6.50); %Basophils 0.5 % (0.0-1.0); %Eosinophils 0.1 % (0.0-10.0); %Lymphocytes 13.8 % (21.0-51.0); %Monocytes 8.1 % (0.0-10.0); %Neutrophils 77.6 % (42.0-75.0); Hemoglobin 8.1 g/dL (14.0-18.0); Mean Corpuscular HGB CONC 35.1 g/dL (32.0-36.0); Mean Corpuscular Hemoglobin 32.3 pg (27.0-31.0); Mean Corpuscular Volume 91.9 fL (78.0-98.0); Mean Platelet Volume 8.6 fL (7.4-10.4); Platelet Count 89 thou/uL (130-400); RBC Distribution Width 13.9 % (11.5-14.5); Red Blood Cell (RBC) Count 2.52 mill/uL (4.70-6.10); White Blood Cell (WBC) Count 8.5 thou/uL (4.8-10.8)
[2018-04-29 11:17] LABS: ALT (SGPT) 16 U/L (8-55); AST (SGOT) 16 U/L (5-34); Albumin 2.7 g/dL (3.5-5.0); Alkaline Phosphatase 70 U/L (40-150); Anion Gap 12 mmol/L (10-20); BUN (Urea Nitrogen) 38 mg/dL (8.9-20.6); Bilirubin, Total 1.4 mg/dL (0.2-1.2); CK (CPK) 64 U/L (30-200); Calc. Creatinine Clearance 0 mL/min (70-130); Calcium 8.1 mg/dL (7.8-10.44); Carbon Dioxide 23 mmol/L (22-29); Chloride 104 mmol/L (98-107); Estimated GFR-MDRD Greater than 90; Globulin 2.8 g/dL (2.4-3.5); Glucose 293 mg/dL (70-105); Lipase 35 U/L (8-78); Potassium 4.8 mmol/L (3.5-5.1); Protein, Total 5.5 g/dL (6.0-8.3); Sodium 134 mmol/L (136-145)
[2018-04-29 11:18] LABS: CKMB 0.8 ng/mL (0-6.6); Troponin I Less than 0.010 ng/mL (< 0.028)
[2018-04-29] MEDS ORDERED: Ondansetron HCl/PF 4 MG/2 ML Vial ONE (11:55)
[2018-04-29] MEDS ORDERED: Octreotide Acetate 1,250 MCG in Sodium Chloride 0.9% 250 ML 250 ML IVPB SCH (12:15)
[2018-04-29] MEDS ORDERED: cefTRIAXone\\ROCEPHIN 1 GM VIAL ONE (12:16)
[2018-04-29] MEDS ORDERED: Activated Charcoal/Sorbitol 25 GM/120 ML TUBE ONE (12:16)
[2018-04-29] MEDS ORDERED: Pantoprazole 40 MG VIAL ONE (12:16)
[2018-04-29] MEDS ORDERED: diphenhydrAMINE 50 MG/ML VIAL ONE (12:45)
--- NOTE | 2018-04-29 12:56 | RAD ---
PORTABLE CHEST: INDICATION: Dizziness. Nausea and diaphoresis. COMPARISON: 07/16/17. FINDINGS: The exam is suboptimal due to poor inspiration on this portable exam. Some questionable nodularity i n the left mid lung may be vascular. Followup upright PA and lateral views of the chest is recommend ed. Otherwise, no acute process. Heart and mediastinum are unremarkable. IMPRESSION: Poor inspiration on this portable projection. Some questioned nodularity in the left mid lung which may be vascular. Recommend followup PA and lateral views of the chest when possible. CODE T POS: [facility]
--- NOTE | 2018-04-29 13:12 | CT ---
CT BRAIN WITHOUT CONTRAST: HISTORY: Headache, dizziness. FINDINGS: There are postop changes of right craniectomy. No evidence of acute infarct, hemorrhage, midline annelise ft, or abnormal extraaxial fluid collections is seen. The ventricular size is appropriate and the ba silar cisterns are patent. No acute calvarial fracture is seen. There are postop changes in the rig ht mastoid. The visualized paranasal sinuses and mastoid air cells are well aerated. IMPRESSION: No CT evidence of acute intracranial process. POS: [facility]
--- NOTE | 2018-04-29 13:16 | CT ---
CTA NECK WITH IV CONTRAST AND 3D POSTPROCESSING: HISTORY: Dizziness, headache. FINDINGS: There is normal caliber and good flow in the common carotid, internal carotid, vertebral, and basilar arteries. No significant stenosis, occlusion, or dissection is seen. Origins of the great vessels of the thoracic aorta are of normal caliber. The visualized intracranial portions of the carotid art betsy systems and the right vertebrobasilar cisterns also appear normal. There are postop changes of r ight occipital craniectomy. IMPRESSION: Normal CTA of the neck. POS: [facility]
[2018-04-29] MEDS ORDERED: PHENYLEPHRINE-NS 100 MCG/ML 10 ML SYRINGE ONE (13:27)
[2018-04-29] MEDS ORDERED: PROPOFOL 200 MG/20 ML VIAL ONE (13:27)
[2018-04-29] MEDS ORDERED: Succinylcholine Chloride 20 MG/ML 10 ml SYRINGE FS ONE (13:27)
[2018-04-29] MEDS ORDERED: Pantoprazole 80 MG in Sodium Chloride 0.9% 100 ML IVP SCH (13:30)
[2018-04-29] MEDS ORDERED: Piperacillin/Tazobactam 3.375 GM VIAL ONE (13:31)
[2018-04-29 14:23] LABS: Bilirubin Negative (Negative); Blood, Urine Negative (Negative); Clarity CLEAR (Clear); Glucose, Urine (Dipstick) >=1000 mg/dL (Negative); Leukocyte Negative (Negative); Nitrite Negative (Negative); Protein, Urine (Dipstick) Negative (Neg-Trace); pH, Urine 5.5 (5.0-9.0)
[2018-04-29 14:28] LABS: Specific Gravity, Urine 1.046 (1.002-1.036)
[2018-04-29] MEDS ORDERED: ISOVUE-370 76%-LOCM 1 ML ONE (15:03)
[2018-04-29] MEDS ORDERED: Fentanyl 100 MCG/2 ML VIAL ONE (15:25)
[2018-04-29] MEDS ORDERED: Phenylephrine HCL 10 MG/ML VIAL ONE (16:44)
[2018-04-29] MEDS ORDERED: Rocuronium Bromide 50 MG/5 ML VIAL ONE (16:44)
[2018-04-29] MEDS ORDERED: Propofol 1,000 MG/100 ML VIAL IV ONE (17:15)
[2018-04-29 17:22] VITALS: BP 86/48
[2018-04-29 17:26] VITALS: BMI 36.6
[2018-04-29 17:35] LABS: Actual Bicarbonate (HCO3a) 20.7 mEq/L (22-28); Base Excess (BEa) -5.7 mEq/L (-2.0 to +3.0); O2 Tension (PaO2) 91.5 mmHg (80.0-100.0); pH, Arterial 7.28 (7.35-7.45)
[2018-04-29 17:36] LABS: Puncture Site LRA
[2018-04-29] MEDS ORDERED: Propofol 1,000 MG/100 ML VIAL IV PRN (17:39)
[2018-04-29] MEDS ORDERED: Propofol BOLUS 1,000 MG/100 ML VIAL IV PRN (17:39)
[2018-04-29] MEDS ORDERED: DISCONTINUE PREVIOUS NARCOTIC PAIN MEDICATIONS AND BENZODIAZEPINES FS SCH (17:39)
[2018-04-29] MEDS ORDERED: Fentanyl BOLUS 250 ML IVPB PRN (17:39)
[2018-04-29] MEDS ORDERED: fentaNYL Citrate/PF 2,000 MCG in Sodium Chloride 0.9% 60 ML IV SCH (17:39)
[2018-04-29] MEDS ORDERED: Fentanyl CADD 250 ML IVPB SCH (17:39)
[2018-04-29] MEDS ORDERED: Lorazepam 2 MG/ML VIAL SLOW IVP PRN (17:39)
[2018-04-29 18:05] LABS: INR-International Normal Ratio 1.6; Prothrombin Time 18.7 SEC (12.0-14.7)
[2018-04-29 18:18] LABS: Hemoglobin 9.1 g/dL (14.0-18.0); Mean Corpuscular HGB CONC 33.9 g/dL (32.0-36.0); Mean Corpuscular Hemoglobin 31.3 pg (27.0-31.0); Mean Corpuscular Volume 92.2 fL (78.0-98.0); Mean Platelet Volume 8.4 fL (7.4-10.4); Platelet Count 144 thou/uL (130-400); RBC Distribution Width 13.5 % (11.5-14.5); Red Blood Cell (RBC) Count 2.92 mill/uL (4.70-6.10); White Blood Cell (WBC) Count 19.3 thou/uL (4.8-10.8)
[2018-04-29 18:25] VITALS: TEMP 98.4
[2018-04-29 18:29] LABS: Band 4 % (5-11); Lymphocytes 18 % (21-51); MDiff Complete? YES; Monocytes 14 % (0-10); Neutrophil 62 % (42-75); Ovalocytes SLIGHT = 2-5 cells (100X) (0-1/hpf); PLT Morphology Comment Appears Adequate; Polychromasia MODERATE = 3-4 cells (100X) (0-2/hpf); Reactive Lymphocytes 1 % (0-10)
--- NOTE | 2018-04-29 18:41 | CON ---
DATE OF CONSULTATION: 04/29/2018 REASON FOR CONSULTATION: Hematemesis. HISTORY OF PRESENT ILLNESS: Carlos Velasco is a 52-year-old gentleman seen in the outpatient s etting by my GI colleague, Dr. Mirza Junior. He had an initial presentation of hematemesis wit h esophageal variceal bleeding in late 06/2017. At that time, he underwent EGD and was found to have 3 trunks of large esophageal varices. Bands were placed x4. The patient followed up for repeat EGD with Dr. Junior in December 2017. This again demonstrated grade III esophageal varices and bands were placed x5. He also had a colonoscopy at that time showing only some portal hypertensive colopathy. During his 07/2017 presentation, he also had ascites and underwent paracentesis. He stopped drinking after that presentation and has avoided alcohol since then. He was recently seen by Dr. Junior in t he outpatient clinic a month ago. Noted at that time labs demonstrated hemoglobin was 12.2. The pat ient was doing fine with regard to fluid status and he was told to preserve his diuretics for p.r.n. use. Yesterday evening, they were at a [employer] and he somewhat acutely started to feel dizzy and lightheaded and broke out into a sweat, this resolved and he felt okay overnight, but then this morning again he had several episodes of acute dizziness and presyncope with diaphoresis. He tells me his last bowel movement was this morning and that appeared normal and brown. However, upon arrival to the emergenc y department, he had pancho hematemesis. This was described by the emergency room providers as dark r ed. He is tachycardic with pulse ranging between 105 and 115 and this appears to be a sinus tachycar carmen. He is not hypotensive. He is feeling okay as long as he lays down. There is no significant ab dominal pain, no diarrhea. He was started on an octreotide drip. He was receiving Rocephin, but he appears to be having a pruritic reaction to this. REVIEW OF SYSTEMS: Full review of systems including constitutional, head, eyes, ears, nose, throat, GI, , cardiovascular, respiratory, musculoskeletal, and neurologic systems is negative except as no jason in the HPI. PAST MEDICAL HISTORY: 1. Cirrhosis secondary to alcohol abuse, diagnosed in 06/2017. 2. Alcohol abuse, quit in 06/2017. 3. Ascites. 4. Esophageal varices with hemorrhage and variceal band ligation in 06/2017 with repeat variceal ban d ligation in 12/2017. 5. Diabetes. ALLERGIES: No known drug allergies. OUTPATIENT MEDICATIONS: Metformin, Lipitor, Lasix p.r.n., spironolactone, p.r.n. FAMILY HISTORY: Negative for gastrointestinal malignancy. SOCIAL HISTORY: He would previously drink a case of beer per day, quit alcohol last 06/2017. No smo tomas, no drug use. PHYSICAL EXAMINATION: VITAL SIGNS: Temperature 98.3, blood pressure 126/59, pulse 105. GENERAL: Obese 52-year-old man lying in bed comfortably in no distress. SKIN: No jaundice, no rashes were palpable. EYES: No scleral icterus. Extraocular movements intact. ENT: Mucous membranes moist, no oral lesions. LYMPH: No submandibular, supraclavicular lymphadenopathy. THYROID: Nontender to palpation. HEART: Regular tachycardia. LUNGS: Clear to auscultation bilaterally. ABDOMEN: Mild distention. Bowel sounds present, soft, nontender to palpation throughout. EXTREMITIES: Trace pretibial edema bilaterally. NEUROLOGICAL: Cranial nerves II-XII intact bilaterally. No focal deficits. VESSELS: Radial pulses 2+ bilaterally. LABORATORY STUDIES: Sodium 134, potassium 4.8, BUN elevated to 38 with creatinine 0.74. WBC 8.5, he moglobin 8.1, this is a decline from 12.2 just 1 month ago, platelets low at 89. Ammonia elevated to 94, normal lipase 35. Total bilirubin 1.4, otherwise normal LFTs with alkaline phosphatase 70, AST 16, ALT 16, albumin 2.7. Troponin negative. Brain CT was performed and the official read is pending . Chest x-ray was performed. There is poor inspiration, making the exam suboptimal. There is possi ble nodularity in the left mid lung which may be vascular. ASSESSMENT AND PLAN: 1. Hematemesis. 2. History of esophageal variceal hemorrhage, with banding done in 06/2017 and 12/2017. 3. Acute blood loss anemia, with hemoglobin declined from 12.2 last month to 8.1 today. 4. Cirrhosis, secondary to alcohol abuse. The patient's presentation is concerning for possible acute recurrent variceal hemorrhage. The patie nt is mildly tachycardic, but otherwise stable at this time. He is going to be admitted to the ICU a nd I agree with this. Agree with the octreotide infusion. Please also start Protonix infusion for n ow. He does need to be on antibiotics, but it appears as having a pruritic reaction to the ceftriaxo ne. I went ahead and ordered Zosyn 3.375 grams IV q.6 hours starting now. We will plan for urgent u pper endoscopy this afternoon. Thank you for the consultation. Please call any time with questions or concerns.
--- NOTE | 2018-04-29 22:48 | OP ---
DATE OF PROCEDURE: 04/29/2018 GI ENDOSCOPY NOTE SURGEON: Joseph Altman M.D. DISPLAY CARVER SURGEON: None. PROCEDURE: Esophagogastroduodenoscopy with variceal banding. INDICATION: A 52-year-old man with a known history of alcoholic cirrhosis and prior variceal bleedin g, status post banding in 06/2017, and repeat banding of esophageal varices in 12/2017. He presented with overt hematemesis and acute blood loss anemia with hemoglobin 8.1, down from 12.2 one-month rai or. MEDICATIONS: See anesthesia record. FINDINGS: After discussion of the risks, benefits and alternatives of the procedure, informed consen t was obtained and witnessed. Pre-endoscopic cardiopulmonary examination was satisfactory. Timeout was performed before sedation was achieved. Sedation was achieved with anesthesia, assistance in the endoscopy unit. The patient was endotracheally intubated for airway protection. A Pentax adult the rapeutic upper endoscope was placed into the oropharynx and passed through the cricopharyngeus under direct visualization. Initial examination of the esophagus demonstrated some distal grade 1-2 esopha geal varices with no stigmata of bleeding. The Z-line is at 39 cm from the incisors and appeared nor mal. The endoscope was passed into the stomach. Forward and retroflexed views of the stomach were o btained. There was a large amount of old blood and clots as well as food filling up most of the joe boy fundus and much of the gastric body. This obscured the view of much of the gastric fundus and gr eater to curvature of the stomach. I was able to visualize most of the lesser curvature and the joe boy antrum. I saw no mucosal abnormalities in these areas. I was able to get beyond the pylorus and into the first and second portion of the duodenum, which also appeared normal. I then did my best t o retroflex and try to get examination the gastric fundus. Initially on the examination, there was n o fresh red blood in the stomach. I was able to visualize a gastric varix, which is quite high in th e fundus about 1 cm distal to the GE junction, which puts it at about 40 cm from the incisors. This had a nipple sign and I concluded that this was the site of his bleeding. In fact, while examining t his area, the varix started actively hemorrhaging. The hemorrhaging was nonpulsatile, venous in natu re, and clearly coming from this gastric varix area. This further made visualization quite difficult . In desperation, I did decide to try to attempt banding of this actively bleeding varix. The endos cope was withdrawn and the variceal band ligator kit was applied. The endoscope was passed back down into the proximal stomach. Visualization was quite difficult, but I eventually was able to localize this actively bleeding area. After a couple of failed tries, I was able to get a band around this a sam. Due to the large amount of blood within the gastric fundus at this point, I was not able to get clear visualization to confirm control of the hemorrhage. At this point, having had done all I coul d do, I completely withdrew the scope and the procedure was completed. The patient remained intubate d and will be going up to his room in the ICU. IMPRESSION: 1. Actively bleeding gastric varix at 40 cm from the incisors, which is just 1 cm beyond the GE junc tion. A band was placed over this gastric varix in desperation, unable to confirm hemostasis achieve d. 2. Stomach full of old and fresh blood and food. 3. Rksft-ea-qhcewe sized esophageal varices, with no stigmata of bleeding. RECOMMENDATIONS: 1. Transfer to the ICU, remains intubated do not place any nasogastric tube. 2. Continue with octreotide. 3. Transfusion of RBCs and platelets. 4. We will need to arrange for transfer to a tertiary center with Interventional Radiology capabilit y to perform intervention such as TIPS or BRTO.
--- NOTE | 2018-04-29 23:04 | HP ---
DATE OF ADMISSION: 04/29/2018 PRIMARY CARE PHYSICIAN: Cindy jim. CHIEF COMPLAINT: Dizziness and vomiting blood. HISTORY OF PRESENT ILLNESS: This is a 52-year-old male who presents to [facility] complaining of intermittent dizziness, sweating, which began approximately 20:30 p.m. on 04/28/2018. The patient noted general malaise, headache and dizziness with some pain in the throat. The patient's history is significant for hepatic cirrhosis and history of esophageal varice s with GI bleed and status post banding, most recently in 12/2017. During evaluation in the emergenc y room, the patient developed nausea and emesis, vomiting bright red blood. The patient was typed an d crossed in the emergency room and placed on Protonix intravenously 80 mg x1 dose followed by octreo tide infusion as well as Protonix infusion. The patient also received Benadryl, Rocephin, Zofran and intravenous normal saline. The patient was urgently evaluated by the GI Service and taken for urgen t endoscopy. The patient was noted with minimal esophageal varices; however, was noted gastric fundu s varices with active hemorrhage. The patient underwent emergent banding of the varices with recomme ndations to transfer to a higher level of care due to resources for possible TIPS procedure at the [facility] site. The patient received 2 units of packed red blood cells initially with hemoglobin in the 8. 1 to 9.1 range currently. The patient was also remained on mechanical ventilation, post-endoscopy an d awaiting transfer by [facility] to [facility] in [place]. PAST MEDICAL HISTORY: 1. Hepatic cirrhosis. 2. History of esophageal varices with gastrointestinal bleed. 3. Chronic normocytic anemia. 4. Grade 3 esophageal varices. 5. History of alcohol abuse, abstinent currently. PAST SURGICAL HISTORY: 1. Status post open middle ear infection with debridement. 2. Status post endoscopy with esophageal variceal banding in 12/2017. 3. Status post esophagogastroduodenoscopy with gastric varices banding x1 in 04/29/2018. CURRENT MEDICATIONS: 1. Octreotide infusion. 2. Protonix infusion. 3. Propofol and fentanyl. ALLERGIES: No known drug allergies. FAMILY HISTORY: No inheritable diseases per family report. SOCIAL HISTORY: Prior alcohol abuse with greater than 10 drinks per day, none currently. No tobacco or illicit drug use. . REVIEW OF SYSTEMS: Unobtainable as patient is on current mechanical ventilation. PHYSICAL EXAMINATION: VITAL SIGNS: On admission, blood pressure 134/65, pulse 106, respiratory rate 18, temperature 98.3 d egrees Fahrenheit, O2 saturation 98% on room air. GENERAL APPEARANCE: This is a 52-year-old male on current mechanical ventilation. Opens ey es and follows simple commands. HEENT: Pupils are equal, round, and reactive to light and accommodation. Extraocular muscles are in tact. Mild scleral icterus. No conjunctival injection. Nares patent. OP with ET tube in place. NECK: Supple, no cervical adenopathy, no thyromegaly, no carotid bruits, no JVD appreciated. CHEST: Lungs are clear to auscultation bilaterally. CARDIOVASCULAR: S1, S2 with tachycardia. ABDOMEN: Protuberant with mild tenderness to palpation in the periumbilical region. No rebound or g uarding noted. Bowel sounds are positive in all four quadrants. No palpable mass. EXTREMITIES: Warm and dry with fair turgor. No clubbing, cyanosis, or asymmetric edema appreciated. Pulses palpable distally at the dorsalis pedis, posterior tibial, and popliteal arteries bilaterall y. Capillary refill less than 2 seconds. NEUROLOGIC: Opens eyes to questions. Squeezes hands to commands. Moves feet to commands while intu bated. GENITOURINARY: Hernandez catheter in place with dark nabil urine. PERTINENT LABORATORY AND X-RAY FINDINGS: Sodium 134, potassium 4.8, chloride 104, CO2 of 23, BUN 38, creatinine 0.74, estimated GFR greater than 90, glucose 293, calcium 8.1, total bilirubin 1.4, AST 1 6, ALT of 16, alkaline phosphatase 70. Serum ammonia level 97. Total CK of 64, troponin I 0.010. A lbumin 2.7, lipase 35. CBC showed a white blood cell count ranged between 8.5 to 19.3, hemoglobin ra nged between 8.1 to 9.1, MCV 92, platelet count ranged between 89 to 144. PT 18.7, INR 1.6. ABG colin ed 04/29/2018 at 1733 showed pH of 7.28, pCO2 of 45, pO2 of 92, bicarbonate 21, O2 saturation 95% on 50% FiO2 with SIMV. Stool Hemoccult on 04/29/2018, positive x1. CT of the brain without contrast shane gomez 04/29/2018 showed no acute intracranial process. Portable chest x-ray dated 04/29/2018 showed po or inspiratory effort. No acute process identified. EKG dated 04/29/2018 by my interpretation shows sinus mechanism with heart rates in the low 100s. Normal R-wave progression noted in the precordial leads. Normal axis. No acute ST-T wave changes appreciated. ASSESSMENT AND PLAN: 1. Acute upper gastrointestinal bleed. The patient will be admitted to the critical care unit. We will continue Protonix infusion as well as octreotide. Type and cross for additional 2 units of pack ed red blood cells. Status post 2 units of packed red blood cells currently. EGD performed urgently by GI Services showing gastric fundus varices with banding. Current recommendations given positioni ng of recurrent varices and limited resources for higher level of care regarding the anatomy and inte rvention necessary to control this type of hemorrhage, patient will be transferred to [facility] in [place], [place]. We will continue IV fluids stated previously. Serial H&H monitoring. 2. Gastric varices with hemorrhage. See #1 above. 3. Acute hypoxic respiratory failure. We will continue mechanical ventilation with SIMV. FiO2 of 5 0%. Rate of 12, tidal volume 500, pressure support of 10 with PEEP of 5. 4. Acute blood loss anemia secondarily to #1. 5. Status post 2 units of packed red blood cells. Type and cross for an additional 2 units of packe d red blood cells. 6. Hepatic cirrhosis with elevated ammonia. We will continue supportive management. We will transf er to [facility] in [place], [place] for higher level of care. 7. Prophylaxis. Sequential compression devices while in bed. Protonix infusion. Lorazepam 2 mg IV q.1 hour p.r.n. withdrawal symptoms. 8. Code status is FULL. Surrogate medical decision maker is patient's spouse. DISPOSITION: Transfer to [facility] in [place], [place] by [facility] on 04/29/2018. Total critical care time 35 minutes.
--- NOTE | 2018-04-30 00:24 | DIS ---
DATE OF ADMISSION: 04/29/2018 DATE OF DISCHARGE: 04/29/2018 DISCHARGE DIAGNOSES: 1. Acute upper gastrointestinal bleed. 2. Gastric varices, status post banding x1. 3. Acute blood loss anemia secondarily to #1. 4. Acute hypoxic respiratory failure. 5. Hepatic cirrhosis with esophageal and gastric varices. 6. Status post 2 units of packed red blood cells. CONSULTATIONS: Dr. Altman with Gastroenterology Service. PERTINENT LABORATORY AND X-RAY FINDINGS: AST 16, ALT 16, alkaline phosphatase 70, total bilirubin 1. 4. Serum ammonia level 97. Total CK 64, troponin I negative x1. Lipase 35, albumin 2.7. CBC showe d a hemoglobin ranging between 8.1-9.1. Last hemoglobin noted 12.2 on 03/20/2018. PT 18.7, INR is 1 .6. Stool Hemoccult positive x1 on 04/29/2018. Portable chest x-ray dated 04/29/2018 showed no acut e cardiopulmonary process. CT of the brain without contrast dated 04/29/2018 showed no acute intracr anial process. CT angiogram of the head and neck showed normal findings. HOSPITAL COURSE: The patient was urgently taken to endoscopy after presenting with upper GI bleed in the context of hepatic cirrhosis with known esophageal varices. The patient was noted with acute bl ood loss anemia with initial hemoglobin of 8.1, previously noted 12.2 on 03/20/2018. The patient was placed on octreotide infusion as well as Protonix and given aggressive IV fluid hydration. The ora ent was typed and crossed for 2 units of packed red blood cells as well as a ten pack of platelets, u ndergoing urgent endoscopy showing gastric fundus with variceal hemorrhage. The patient underwent a single banding of the hemorrhage per GI report, however, poor visualization and active blood loss pre cluded further investigation. Due to the anatomy and position of the gastric varices with limited re sources for a higher level of intervention, the patient was recommended for transfer to [facility] in [place], [place] for a potential TIPS procedure. The patient remained on mechanical ventilation p ost-endoscopy in the critical care unit. Discussions with [facility] and GI Services agreed with transfer with accepting physician Dr. Maritza Malhotra as attending at [facility]. I have examined th e patient at the time of discharge, on current mechanical ventilation with [facility] services and p rocess of transportation and transfer. CONDITION ON DISCHARGE: Guarded. ACTIVITY: Ad breanna. DIET: N.p.o. SPECIAL INSTRUCTIONS: None. DISPOSITION: Transferred to [facility] in [place], [place] via [facility] services on 04/29/2018.
== END 2018-04-29 18:59 | disposition critical access hospital (66) | DRG 299 ==
LOC: ERS 10:34 → CCU 12:37
PROVIDERS: ADMIT Family Medicine; ATTEND Family Medicine
PROC: 0W3P8ZZ Control Bleeding in Gastrointestinal Tract, Via Natural or Artificial Opening Endoscopic (ICD-10-PCS; principal; 2018-04-29)
PROC: 30233N1 Transfusion of Nonautologous Red Blood Cells into Peripheral Vein, Percutaneous Approach (ICD-10-PCS; 2018-04-29)
PROC: 5A1935Z Respiratory Ventilation, Less than 24 Consecutive Hours (ICD-10-PCS; 2018-04-29)
DX: I86.4 Gastric varices (principal); J96.01 Acute respiratory failure with hypoxia; I85.10 Secondary esophageal varices without bleeding; D62 Acute posthemorrhagic anemia; K92.2 Gastrointestinal hemorrhage, unspecified; K70.31 Alcoholic cirrhosis of liver with ascites; E11.9 Type 2 diabetes mellitus without complications
CPT/HCPCS: 36415; 36430; 70450; 70498; 71045; 80053; 81003; 82140; 82274; 82553; 82805; 83690; 84484; 85025; 85610; 86850; 86900; 86901; 87086; 93005; 94002; 96361; 96365; 96375; C9113; J0696; J1200; J2354; J2370; J2405; J2543; J2704; J3010; J7050; P9016; P9035

== ENCOUNTER 2018-05-09 18:56 | Emergency (ER) | payer SELFPAY ==
[2018-05-09 19:59] LABS: INR-International Normal Ratio 1.8; Prothrombin Time 20.6 SEC (12.0-14.7)
[2018-05-09 20:06] LABS: #Basophils 0.1 thou/uL (0.0-0.2); #Eosinphils 0.3 thou/uL (0.0-0.7); #Lymphocytes 1.7 thou/uL (1.20-3.40); %Basophils 0.7 % (0.0-1.0); %Eosinophils 2.5 % (0.0-10.0); %Monocytes 10.3 % (0.0-10.0); %Neutrophils 69.4 % (42.0-75.0); Hemoglobin 8.8 g/dL (14.0-18.0); Mean Corpuscular HGB CONC 33.9 g/dL (32.0-36.0); Mean Corpuscular Hemoglobin 29.9 pg (27.0-31.0); Mean Corpuscular Volume 88.4 fL (78.0-98.0); Mean Platelet Volume 9.7 fL (7.4-10.4); Platelet Count 65 thou/uL (130-400); RBC Distribution Width 15.5 % (11.5-14.5); Red Blood Cell (RBC) Count 2.92 mill/uL (4.70-6.10); White Blood Cell (WBC) Count 10.1 thou/uL (4.8-10.8)
[2018-05-09 20:07] LABS: Anisocytosis SLIGHT = 6-15 cells (100X) (0-5/hpf); MDiff Complete? YES; PLT Morphology Comment Appears Decreased; Polychromasia MODERATE = 3-4 cells (100X) (0-2/hpf)
[2018-05-09 20:11] LABS: ALT (SGPT) 23 U/L (8-55); AST (SGOT) 19 U/L (5-34); Albumin 2.2 g/dL (3.5-5.0); Alkaline Phosphatase 80 U/L (40-150); Anion Gap 10 mmol/L (10-20); BUN (Urea Nitrogen) 10 mg/dL (8.9-20.6); Bilirubin, Total 1.7 mg/dL (0.2-1.2); CK (CPK) 72 U/L (30-200); Calc. Creatinine Clearance 0 mL/min (70-130); Calcium 7.6 mg/dL (7.8-10.44); Carbon Dioxide 25 mmol/L (22-29); Chloride 101 mmol/L (98-107); Estimated GFR-MDRD Greater than 90; Globulin 2.8 g/dL (2.4-3.5); Glucose 171 mg/dL (70-105); Sodium 132 mmol/L (136-145)
[2018-05-09 20:19] LABS: CKMB 0.5 ng/mL (0-6.6); Troponin I Less than 0.010 ng/mL (< 0.028)
--- NOTE | 2018-05-09 21:08 | RAD ---
CHEST ONE VIEW: 05/09/18 HISTORY: Chest pain. COMPARISON: Radiograph 04/29/18. FINDINGS: The lungs are hypoinflated. Vascular crowding. Air space opacity left lung base. No pneumothorax. The cardiac silhouette and mediastinal contours are within normal limits. IMPRESSION: Hypoinflation with vascular crowding. Left basilar opacity is most likely reflective of atelectasis. This is similar. POS: [facility]
[2018-05-09] MEDS ORDERED: Lidocaine 1% PF 5 ML VIAL ONE (22:22)
--- NOTE | 2018-05-12 10:53 | EKG ---
Test Reason : ABD PAIN Blood Pressure : / mmHG Vent. Rate : 080 BPM Atrial Rate : 080 BPM P-R Int : 122 ms QRS Dur : 088 ms QT Int : 364 ms P-R-T Axes : 020 016 048 degrees QTc Int : 419 ms Normal sinus rhythm Normal ECG Confirmed by JOSE JUSTICE, LAM ([id number]), editor producer GARY CHAUDHARY ([id number]) on 05/12/2018 10:53:03 AM Referred By: Confirmed By:LAM GARCIA MD
== END 2018-05-09 23:10 | disposition home or self-care (01) ==
LOC: ERS 18:56
DX: R18.8 Other ascites (principal); K72.90 Hepatic failure, unspecified without coma; K74.60 Unspecified cirrhosis of liver; I10 Essential (primary) hypertension; E11.9 Type 2 diabetes mellitus without complications; Z79.84 Long term (current) use of oral hypoglycemic drugs; Z79.899 Other long term (current) drug therapy
CPT/HCPCS: 71045; 80053; 82553; 83880; 84484; 85025; 85610; 85730; 93005; J2001

== ENCOUNTER 2018-06-04 08:38 | Inpatient (IN) | payer MEDICAID, SELFPAY ==
[2018-06-04] MEDS ORDERED: Ondansetron ODT 4 MG TAB ONE (08:54)
[2018-06-04 09:35] LABS: #Lymphocytes 0.7 thou/uL (1.20-3.40); #Monocytes 0.3 thou/uL (0.11-0.59); #Neutrophils 2.1 thou/uL (1.40-6.50); %Basophils 0.4 % (0.0-1.0); %Eosinophils 1.4 % (0.0-10.0); %Lymphocytes 21.6 % (21.0-51.0); %Monocytes 9.9 % (0.0-10.0); %Neutrophils 66.8 % (42.0-75.0); Mean Corpuscular Hemoglobin 28.6 pg (27.0-31.0); Mean Corpuscular Volume 89.3 fL (78.0-98.0); Mean Platelet Volume 9.5 fL (7.4-10.4); Platelet Count 73 thou/uL (130-400); RBC Distribution Width 15.5 % (11.5-14.5); White Blood Cell (WBC) Count 3.2 thou/uL (4.8-10.8)
[2018-06-04 09:40] LABS: Bilirubin Small (Negative); Blood, Urine Negative (Negative); Clarity CLEAR (Clear); Glucose, Urine (Dipstick) 250 mg/dL (Negative); Leukocyte Negative (Negative); Nitrite Negative (Negative); Protein, Urine (Dipstick) Trace mg/dL (Neg-Trace); Specific Gravity, Urine 1.027 (1.002-1.036)
[2018-06-04 09:48] LABS: Amphetamine Not Detected (NotDetected); Barbiturates Screen Not Detected (NotDetected); Benzodiazepine Screen Not Detected (NotDetected); Cocaine Metabolite Screen Not Detected (NotDetected); Medtox Control Line Valid? VALID (VALID); Medtox Reader # READER 1; Methadone Not Detected (NotDetected); Methamphetamine Not Detected (NotDetected); Opiate Screen Not Detected (NotDetected); Oxycodone Screen Not Detected (NotDetected); Phencyclidine (PCP) Not Detected (NotDetected); THC/Cannabinoid Screen Not Detected (NotDetected); Tricyclic Screen Not Detected (NotDetected)
--- NOTE | 2018-06-04 09:52 | CT ---
NONCONTRAST CT HEAD: Date: 06/04/18 HISTORY: Altered mental status. Vomiting. COMPARISON: 04/29/18. FINDINGS: Postoperative changes related to right occipital craniotomy defect are again seen. There is no eviden ce of a hemorrhage, acute infarction, mass effect, or midline shift. Ventricular system is normal in size, shape, and position. CT head is overall stable from prior exam. IMPRESSION: No acute intracranial abnormality is demonstrated. POS: [facility]
[2018-06-04 09:57] LABS: ALT (SGPT) 34 U/L (8-55); AST (SGOT) 31 U/L (5-34); Albumin 3.3 g/dL (3.5-5.0); Alkaline Phosphatase 117 U/L (40-150); Anion Gap 14 mmol/L (10-20); BUN (Urea Nitrogen) 12 mg/dL (8.9-20.6); Bilirubin, Total 2.1 mg/dL (0.2-1.2); CK (CPK) 46 U/L (30-200); Calc. Creatinine Clearance 0 mL/min (70-130); Calcium 9.3 mg/dL (7.8-10.44); Carbon Dioxide 22 mmol/L (22-29); Chloride 105 mmol/L (98-107); Estimated GFR-MDRD Greater than 90; Globulin 4.6 g/dL (2.4-3.5); Glucose 202 mg/dL (70-105); Lipase 23 U/L (8-78); Protein, Total 7.9 g/dL (6.0-8.3); Sodium 137 mmol/L (136-145)
[2018-06-04] MEDS ORDERED: Ondansetron HCl/PF 4 MG/2 ML Vial IVP PRN ×2 (12:09→12:33)
[2018-06-04] MEDS ORDERED: Acetaminophen 325 MG TAB PO PRN ×2 (12:10→12:33)
[2018-06-04] MEDS ORDERED: Ondansetron ODT 4 MG TAB PO PRN ×2 (12:10→12:33)
[2018-06-04] MEDS ORDERED: Sodium Chloride 0.9% 1,000 ML IV SCH (12:15)
[2018-06-04] MEDS ORDERED: Sodium Chloride 0.65% Nasal 44 ML BOT EA NARE PRN (12:33)
[2018-06-04] MEDS ORDERED: Artificial Tear Sol 15 ML BOT EA EYE PRN (12:33)
[2018-06-04] MEDS ORDERED: Senokot 8.6 MG TAB PO PRN (12:33)
[2018-06-04] MEDS ORDERED: Dextrose 5% in Water 1,000 ML IV PRN (12:33)
[2018-06-04] MEDS ORDERED: Chloraseptic Spray 180 ml Bottle PO PRN (12:33)
[2018-06-04] MEDS ORDERED: Milk Of Magnesia 30 ML UDCUP PO PRN (12:33)
[2018-06-04] MEDS ORDERED: Diabetic Tussin 200 MG/10 ML UDCUP PO PRN (12:33)
[2018-06-04] MEDS ORDERED: Eucerin (Mineral Oil/Petrolatum,White) 30 gm Jar TOP PRN (12:33)
[2018-06-04] MEDS ORDERED: Mag-Al 1200 mg/1200 mg/30 ML UDCUP PO PRN (12:33)
[2018-06-04] MEDS ORDERED: Dextrose 50% Abboject 50 ML SYRINGE SLOW IVP PRN (12:33)
[2018-06-04] MEDS ORDERED: HumaLOG 300 UNITS/3 ML VIAL SC PRN (12:33)
[2018-06-04] MEDS ORDERED: hydrALAZINE 20 MG/ML VIAL SLOW IVP PRN (12:33)
[2018-06-04 12:46] VITALS: BMI 31.1
--- NOTE | 2018-06-04 13:20 | HP ---
DATE OF ADMISSION: 06/04/2018 PRIMARY CARE PHYSICIAN: Cleveland Beckwith. REASON FOR ADMISSION: Hepatic encephalopathy. HISTORY OF PRESENT ILLNESS: A 52-year-old male who has cirrhosis of liver with portal hypertension, who was brought to emergency room by family member because the patient was having increasing confusion. All symptoms started after nausea and vomiting. He did not have any hematemesis. He did not take any new medication. He was not having any fever or upper respiratory or lower respiratory symptoms. He did not have any UTI symptoms. He appeared to be weak and he was getting confused since yesterday. Everything whatever he was doing was not making any sense. This significantly changed since yesterday and that is why the patient's brought him into emergency room for evaluation. In the emergency room, the patient had routine blood tests and he was found with elevated ammonia level. The patient was also having asterixis. The patient is being admitted for hepatic encephalopathy. The patient also reports that he did not have any bowel movement for the last several days. He denies any abdominal pain. He denies any abdominal distention. He denies any melena or hematochezia. He denies any hematemesis. PAST MEDICAL HISTORY: Cirrhosis of liver secondary to alcohol, portal hypertension, esophageal varices with a history of GI bleed, chronic normocytic anemia, history of alcohol abuse in the past. PAST SURGICAL HISTORY: Middle ear infection treated with debridement. Upper endoscopy for esophageal variceal bleeding and banding was performed. History of upper endoscopy and gastric banding was performed. PAST PSYCHIATRIC HISTORY: Reviewed and negative. FAMILY HISTORY: No strong family history of premature coronary artery disease, stroke or cancer. SOCIAL HISTORY: The patient is . He has a remote history of alcohol abuse, but he is currently abstinent. He denies any other illicit drug abuse. He denies any smoking. REVIEW OF SYSTEMS: The following complete review of systems was negative, unless otherwise mentioned in the HPI or below: Constitutional: Weight loss or gain, ability to conduct usual activities. Skin: Rash, itching. Eyes: Double vision, pain. ENT/Mouth: Nose bleeding, neck stiffness, pain, tenderness. Cardiovascular: Palpitations, dyspnea on exertion, orthopnea. Respiratory: Shortness of breath, wheezing, cough, hemoptysis, fever or night sweats. Gastrointestinal: Poor appetite, abdominal pain, heartburn, nausea, vomiting, constipation, or diarrhea. Genitourinary: Urgency, frequency, dysuria, nocturia. Musculoskeletal: Pain, swelling. Neurologic/Psychiatric: Anxiety, depression. Allergy/Immunologic: Skin rash, bleeding tendency. All review of system reviewed with the patient and negative except as mentioned in the HPI. ALLERGIES: ROCEPHIN. CURRENT HOME MEDICATIONS: Colace 100 mg p.o. daily p.r.n., ferrous sulfate 325 mg p.o. daily, metformin 500 mg p.o. b.i.d. EMERGENCY ROOM COURSE: The patient is given lactulose and Zofran 4 mg. PHYSICAL EXAMINATION: VITAL SIGNS: On arrival, blood pressure 144/69, pulse 66, respiratory rate 16, temperature 98.2, saturation 100% on room air, weight 90.7 kg. GENERAL: The patient is currently confused, in no obvious acute distress. HEAD: Normocephalic, atraumatic. EYES: Pupils round and reactive to light. Extraocular muscles intact. ENT: Oropharynx within normal limits. Moist mucous membranes. No oral lesion , no pharyngeal erythema, no exudate. NECK: Supple, no JVD, no thyromegaly, no carotid bruit, no jugular venous distention. LUNGS: Clear to auscultation without any rhonchi or rales. CARDIAC: S1, S2 regular. No murmur, no gallop, no rub. ABDOMEN: Soft, bowel sounds present, nontender, nondistended. No organomegaly , no mass, no suprapubic tenderness. BACK: Unremarkable. No CVA tenderness. EXTREMITIES: Upper extremities, passive movement of all joints are normal. Lower extremities, no edema. Good distal pulsation. SKIN: No skin rash. HEMATOLOGICAL: No lymphadenopathy. PSYCHIATRIC: Normal affect. SIGNIFICANT LABORATORY DATA: CBC, WBC 3.2, hemoglobin 12.0, platelets 73,000. Sodium 137, potassium 4.0, chloride 105, carbon dioxide 22, BUN 12, creatinine 0.67, glucose 202, calcium 9.3. LFT, bilirubin 2.1, AST 31, ALT 34, alkaline phosphatase 117, albumin 3.3, lipase 23. Ammonia 103. Urinalysis unremarkable. Urine drug screen negative. CT brain based on my review, no acute intracranial process. ASSESSMENT: 1. Hepatic encephalopathy. The patient is confused and he has elevated ammonia level in the presence of cirrhosis of liver. This is most likely hepatic encephalopathy. We will treat him with lactulose 30 mL q.i.d. along with rifaximin 550 mg p.o. b.i.d. We will repeat ammonia level tomorrow. 2. Liver cirrhosis with portal hypertension with esophageal varices. 3. Pancytopenia due to liver cirrhosis with portal hypertension. 4. Obesity with BMI 31. 5. Diabetes type 2. PLAN: Full admission to medical floor. Continue lactulose 30 mL p.o. q.i.d., rifaximin 550 mg p.o. b.i.d. Repeat ammonia level tomorrow. Monitor clinical response. Start diabetes hyperglycemia protocol treatment. Deep venous thrombosis prophylaxis, SCD boots. No Lovenox because of low platelet count. GI prophylaxis with Pepcid 20 mg IV q.12 hourly. CODE STATUS: The patient is full code. The patient's is surrogate decision maker. Disposition plan based on clinical course. We are expecting the patient's stay in hospital more than 2 midnights. Plan of care discussed with the patient in detail. MANUELD
[2018-06-04] MEDS: HumaLOG 300 UNITS/3 ML VIAL SC PRN (17:30)
[2018-06-04] MEDS: Rifaximin 550 MG TAB PO SCH (20:43)
[2018-06-04] MEDS: Famotidine/PF 20 mg/2ml Vial SLOW IVP SCH (20:44)
[2018-06-05 05:35] LABS: ALT (SGPT) 28 U/L (8-55); AST (SGOT) 31 U/L (5-34); Albumin 2.7 g/dL (3.5-5.0); Alkaline Phosphatase 81 U/L (40-150); Anion Gap 12 mmol/L (10-20); BUN (Urea Nitrogen) 12 mg/dL (8.9-20.6); Calc. Creatinine Clearance 179 mL/min (70-130); Calcium 8.5 mg/dL (7.8-10.44); Carbon Dioxide 19 mmol/L (22-29); Chloride 108 mmol/L (98-107); Estimated GFR-MDRD Greater than 90; Globulin 3.6 g/dL (2.4-3.5); Glucose 151 mg/dL (70-105); Potassium 3.9 mmol/L (3.5-5.1); Protein, Total 6.3 g/dL (6.0-8.3); Sodium 135 mmol/L (136-145)
[2018-06-05 06:04] LABS: Band 12 % (5-11); Lymphocytes 31 % (21-51); MDiff Complete? YES; Mean Corpuscular Hemoglobin 29.9 pg (27.0-31.0); Mean Corpuscular Volume 90.4 fL (78.0-98.0); Mean Platelet Volume 10.2 fL (7.4-10.4); Monocytes 4 % (0-10); Neutrophil 53 % (42-75); Ovalocytes SLIGHT = 2-5 cells (100X) (0-1/hpf); PLT Morphology Comment Appears Decreased; Platelet Count 69 thou/uL (130-400); RBC Distribution Width 15.6 % (11.5-14.5); Red Blood Cell (RBC) Count 3.36 mill/uL (4.70-6.10); White Blood Cell (WBC) Count 3.3 thou/uL (4.8-10.8)
[2018-06-05] MEDS: Rifaximin 550 MG TAB PO SCH ×2 (09:00→20:45)
[2018-06-05] MEDS: Ferrous Sulfate 325 MG TAB PO SCH (09:00)
[2018-06-05] MEDS: Famotidine/PF 20 mg/2ml Vial SLOW IVP SCH ×2 (09:00→20:46)
--- NOTE | 2018-06-05 11:55 | PDOC.PN ---
- Subjective Encounter Start Date: 06/05/18 Encounter Start Time: 08:15 -: old records requested/rev Patient seen and examined. No new complaints. No overnight events - Objective Resuscitation Status: Resuscitation Status FULL:Full Resuscitation MAR Reviewed: Yes Vital Signs & Weight: Vital Signs (12 hours) Temp Pulse Resp BP Pulse Ox 06/05/18 11:27 98.1 F 66 16 145/80 H 100 06/05/18 07:28 97.8 F 62 16 134/75 100 06/05/18 04:00 97.8 F 67 20 168/86 H 100 06/05/18 00:00 98.3 F 68 20 139/65 99 Weight Weight 192 lb 11.2 oz Result Diagrams: 06/05/18 03:03 06/05/18 03:03 Additional Labs: Accuchecks 06/05/18 06/04/18 06/04/18 03:57 19:05 16:42 POC Glucose 134 H 183 H 180 H Phys Exam - Physical Examination Constitutional: NAD HEENT: PERRLA, moist MMs, sclera anicteric Neck: no JVD, supple Respiratory: no wheezing, no rales, no rhonchi Cardiovascular: RRR, no significant murmur, no rub Gastrointestinal: soft, non-tender, no distention, positive bowel sounds Musculoskeletal: no edema, pulses present Neurological: non-focal, normal sensation, moves all 4 limbs Lymphatic: no nodes Psychiatric: normal affect, A&O x 3 Skin: no rash, normal turgor Dx/Plan (1) Hepatic encephalopathy Code(s): K72.90 - HEPATIC FAILURE, UNSPECIFIED WITHOUT COMA Status: Acute (2) Alcoholic cirrhosis of liver Code(s): K70.30 - ALCOHOLIC CIRRHOSIS OF LIVER WITHOUT ASCITES Status: Chronic (3) DM2 (diabetes mellitus, type 2) Status: Chronic Qualifiers: Comment: newly diagnoses. SSI for now. A1C actually pretty low (4) Esophageal varices Code(s): I85.00 - ESOPHAGEAL VARICES WITHOUT BLEEDING Status: Chronic (5) Obesity (BMI 30-39.9) Code(s): E66.9 - OBESITY, UNSPECIFIED Status: Chronic (6) Pancytopenia Code(s): D61.818 - OTHER PANCYTOPENIA Status: Chronic (7) Portal hypertension Code(s): K76.6 - PORTAL HYPERTENSION Status: Chronic - Plan cont current plan of care * medication reviewed as below * symptomatic treatment * continue lactulose and rifaximin * expecting discharge tomorrow. Review of Systems - Review of Systems Eyes: negative: Pain, Vision Change, Conjunctivae Inflammation, Eyelid Inflammation, Redness, Other ENT: negative: Ear Pain, Ear Discharge, Nose Pain, Nose Discharge, Nose Congestion, Mouth Pain, Mouth Swelling, Throat Pain, Throat Swelling, Other Respiratory: negative: Cough, Dry, Shortness of Breath, Hemoptysis, SOB with Excertion, Pleuritic Pain, Sputum, Wheezing Cardiovascular: negative: chest pain, palpitations, orthopnea, paroxysmal nocturnal dyspnea, edema, light headedness, other Gastrointestinal: negative: Nausea, Vomiting, Abdominal Pain, Diarrhea, Constipation, Melena, Hematochezia, Other Genitourinary: negative: Dysuria, Frequency, Incontinence, Hematuria, Retention , Other Musculoskeletal: negative: Neck Pain, Shoulder Pain, Arm Pain, Back Pain, Hand Pain, Leg Pain, Foot Pain, Other Skin: negative: Rash, Lesions, Oscar, Bruising, Other - Medications/Allergies Allergies/Adverse Reactions: Allergies Allergy/AdvReac Type Severity Reaction Status Date / Time ceftriaxone [From Rocephin] Allergy Verified 06/04/18 14:18 Medications: Current Medications Acetaminophen (Tylenol) 650 mg PO Q4H PRN PRN Reason: Headache/Fever or Pain Al Hydroxide/Mg Hydroxide (Maalox) 30 ml PO Q6H PRN PRN Reason: Heartburn or Indigestion Artificial Tears (Tears Renewed 15ml Bottle) 0 drop EA EYE PRN PRN PRN Reason: Dry Eyes Dextrose/Water (Dextrose 50%) 25 gm SLOW IVP PRN PRN PRN Reason: Hypoglycemia Famotidine (Pepcid) 20 mg SLOW IVP Q12HR [facility] Last Admin: 06/05/18 09:00 Dose: 20 mg Ferrous Sulfate (Feosol) 325 mg PO DAILY [facility] Last Admin: 06/05/18 09:00 Dose: 325 mg Glucagon (Glucagon) 1 mg IM PRN PRN PRN Reason: Hypoglycemia Guaifenesin (Robitussin Sf) 200 mg PO Q4H PRN PRN Reason: Cough Hydralazine HCl (Apresoline) 10 mg SLOW IVP Q4H PRN PRN Reason: Systolic BP > 180 Dextrose/Water (D5w) 1,000 mls @ 0 mls/hr IV .Q0M PRN PRN Reason: Hypoglycemia Insulin Human Lispro (Humalog) 0 units SC .MILD SLIDING SCALE PRN PRN Reason: Mild Correctional Scale Last Admin: 06/04/18 17:30 Dose: 2 unit Insulin Human Lispro (Humalog) 0 units SC .BEDTIME SLIDING SC PRN PRN Reason: Bedtime Correctional Scale Lactulose (Lactulose) 30 gm PO QID [facility] Last Admin: 06/05/18 09:00 Dose: 30 gm Magnesium Hydroxide (Milk Of Magnesium) 30 ml PO DAILYPRN PRN PRN Reason: Constipation Mineral Oil/White Petrolatum (Eucerin Cream) 0 gm TOP BIDPRN PRN PRN Reason: Dry Skin Ondansetron HCl (Zofran Odt) 4 mg PO Q6H PRN PRN Reason: Nausea/Vomiting Ondansetron HCl (Zofran) 4 mg IVP Q6H PRN PRN Reason: Nausea/Vomiting Phenol (Chloraseptic [place] 180 Ml Bot) 0 ml PO PRN PRN PRN Reason: Sore Throat Rifaximin (Xifaxan) 550 mg PO BID [facility] Last Admin: 06/05/18 09:00 Dose: 550 mg Senna (Senokot) 2 tab PO HSPRN PRN PRN Reason: Constipation Sodium Chloride ([place] Nasal [place] 0.65%) 0 ml EA NARE QIDPRN PRN PRN Reason: Nasal Congestion
[2018-06-05] MEDS: HumaLOG 300 UNITS/3 ML VIAL SC PRN (17:16)
[2018-06-06] MEDS: Ferrous Sulfate 325 MG TAB PO SCH (08:16)
[2018-06-06] MEDS: Rifaximin 550 MG TAB PO SCH (08:16)
[2018-06-06] MEDS ORDERED: Famotidine 20 MG TAB PO SCH (09:00)
--- NOTE | 2018-06-06 11:07 | PDOC.PN ---
- Subjective Encounter Start Date: 06/06/18 Encounter Start Time: 08:50 Patient seen and examined. No new complaints. No overnight events - Objective Resuscitation Status: Resuscitation Status FULL:Full Resuscitation MAR Reviewed: Yes Vital Signs & Weight: Vital Signs (12 hours) Temp Pulse Resp BP Pulse Ox 06/06/18 07:48 98.4 F 64 18 119/67 100 Weight Admit Weight 192 lb 11.2 oz Weight 192 lb 11.2 oz I&O: 06/05/18 06/06/18 06/07/18 06:59 06:59 06:59 Intake Total 510 Balance 510 Result Diagrams: 06/05/18 03:03 06/05/18 03:03 Additional Labs: Accuchecks 06/06/18 06/05/18 06/05/18 05:24 21:02 16:35 POC Glucose 119 H 173 H 210 H 06/05/18 11:27 POC Glucose 163 H Phys Exam - Physical Examination Constitutional: NAD HEENT: PERRLA, moist MMs, sclera anicteric Neck: no JVD, supple Respiratory: no wheezing, no rales, no rhonchi Cardiovascular: RRR, no significant murmur, no rub Gastrointestinal: soft, non-tender, no distention, positive bowel sounds Musculoskeletal: no edema, pulses present Neurological: non-focal, normal sensation, moves all 4 limbs Psychiatric: normal affect, A&O x 3 Skin: no rash, normal turgor Dx/Plan (1) Hepatic encephalopathy Code(s): K72.90 - HEPATIC FAILURE, UNSPECIFIED WITHOUT COMA Status: Acute (2) Alcoholic cirrhosis of liver Code(s): K70.30 - ALCOHOLIC CIRRHOSIS OF LIVER WITHOUT ASCITES Status: Chronic (3) DM2 (diabetes mellitus, type 2) Status: Chronic Qualifiers: Comment: newly diagnoses. SSI for now. A1C actually pretty low (4) Esophageal varices Code(s): I85.00 - ESOPHAGEAL VARICES WITHOUT BLEEDING Status: Chronic (5) Obesity (BMI 30-39.9) Code(s): E66.9 - OBESITY, UNSPECIFIED Status: Chronic (6) Pancytopenia Code(s): D61.818 - OTHER PANCYTOPENIA Status: Chronic (7) Portal hypertension Code(s): K76.6 - PORTAL HYPERTENSION Status: Chronic - Plan cont current plan of care, plan discussed w/ family * medication reviewed as below * symptomatic treatment * see discharge blanca. Review of Systems - Review of Systems ENT: negative: Ear Pain, Ear Discharge, Nose Pain, Nose Discharge, Nose Congestion, Mouth Pain, Mouth Swelling, Throat Pain, Throat Swelling, Other Respiratory: negative: Cough, Dry, Shortness of Breath, Hemoptysis, SOB with Excertion, Pleuritic Pain, Sputum, Wheezing Cardiovascular: negative: chest pain, palpitations, orthopnea, paroxysmal nocturnal dyspnea, edema, light headedness, other Gastrointestinal: negative: Nausea, Vomiting, Abdominal Pain, Diarrhea, Constipation, Melena, Hematochezia, Other Genitourinary: negative: Dysuria, Frequency, Incontinence, Hematuria, Retention , Other Musculoskeletal: negative: Neck Pain, Shoulder Pain, Arm Pain, Back Pain, Hand Pain, Leg Pain, Foot Pain, Other Skin: negative: Rash, Lesions, Oscar, Bruising, Other - Medications/Allergies Allergies/Adverse Reactions: Allergies Allergy/AdvReac Type Severity Reaction Status Date / Time ceftriaxone [From Rocephin] Allergy Verified 06/04/18 14:18 Medications: Current Medications Acetaminophen (Tylenol) 650 mg PO Q4H PRN PRN Reason: Headache/Fever or Pain Al Hydroxide/Mg Hydroxide (Maalox) 30 ml PO Q6H PRN PRN Reason: Heartburn or Indigestion Artificial Tears (Tears Renewed 15ml Bottle) 0 drop EA EYE PRN PRN PRN Reason: Dry Eyes Dextrose/Water (Dextrose 50%) 25 gm SLOW IVP PRN PRN PRN Reason: Hypoglycemia Famotidine (Pepcid) 20 mg PO Q12HR [facility] Last Admin: 06/06/18 08:15 Dose: 20 mg Ferrous Sulfate (Feosol) 325 mg PO DAILY [facility] Last Admin: 06/06/18 08:16 Dose: 325 mg Glucagon (Glucagon) 1 mg IM PRN PRN PRN Reason: Hypoglycemia Guaifenesin (Robitussin Sf) 200 mg PO Q4H PRN PRN Reason: Cough Hydralazine HCl (Apresoline) 10 mg SLOW IVP Q4H PRN PRN Reason: Systolic BP > 180 Dextrose/Water (D5w) 1,000 mls @ 0 mls/hr IV .Q0M PRN PRN Reason: Hypoglycemia Insulin Human Lispro (Humalog) 0 units SC .MILD SLIDING SCALE PRN PRN Reason: Mild Correctional Scale Last Admin: 06/05/18 17:16 Dose: 3 unit Insulin Human Lispro (Humalog) 0 units SC .BEDTIME SLIDING SC PRN PRN Reason: Bedtime Correctional Scale Lactulose (Lactulose) 30 gm PO QID [facility] Last Admin: 06/06/18 08:16 Dose: 30 gm Magnesium Hydroxide (Milk Of Magnesium) 30 ml PO DAILYPRN PRN PRN Reason: Constipation Mineral Oil/White Petrolatum (Eucerin Cream) 0 gm TOP BIDPRN PRN PRN Reason: Dry Skin Ondansetron HCl (Zofran Odt) 4 mg PO Q6H PRN PRN Reason: Nausea/Vomiting Ondansetron HCl (Zofran) 4 mg IVP Q6H PRN PRN Reason: Nausea/Vomiting Phenol (Chloraseptic [place] 180 Ml Bot) 0 ml PO PRN PRN PRN Reason: Sore Throat Rifaximin (Xifaxan) 550 mg PO BID [facility] Last Admin: 06/06/18 08:16 Dose: 550 mg Senna (Senokot) 2 tab PO HSPRN PRN PRN Reason: Constipation Sodium Chloride ([place] Nasal [place] 0.65%) 0 ml EA NARE QIDPRN PRN PRN Reason: Nasal Congestion
--- NOTE | 2018-06-06 12:01 | DIS ---
DATE OF ADMISSION: 06/04/2018 DATE OF DISCHARGE: 06/06/2018 PRIMARY CARE PHYSICIAN: Cleveland Beckwith. DISCHARGE DISPOSITION: Home. PRIMARY DISCHARGE DIAGNOSIS: Acute hepatic encephalopathy, corrected. SECONDARY DISCHARGE DIAGNOSES: Portal hypertension, pancytopenia, obesity with body mass index 31, e sophageal varices, diabetes type 2, alcoholic cirrhosis of liver. PRIMARY PROCEDURE/OPERATION: None. RADIOLOGICAL INVESTIGATION: CT brain was normal. SIGNIFICANT LABORATORY DATA: WBC 3.3, hemoglobin 10.0, platelets 69. Sodium 135, creatinine 0.61. Ammonia 45. LFT normal, bilirubin 2.0, albumin 2.7. Urinalysis unremarkable. Urine drug screen neg ative. DISCHARGE MEDICATIONS: Pepcid 20 mg p.o. b.i.d., folic acid 1 mg p.o. daily, ferrous sulfate 325 mg p.o. daily, Lasix 20 mg p.o. daily, lactulose 20 grams p.o. b.i.d., metformin 500 mg p.o. b.i.d., Ind eral 10 mg p.o. b.i.d., Aldactone 25 mg p.o. daily. CONTRAINDICATIONS: None. CODE STATUS: FULL CODE. INPATIENT CONSULTANTS: None. ALLERGIES: ROCEPHIN. TEST RESULTS PENDING ON DISCHARGE: None. DISCHARGE PLAN: Post hospital, patient will follow up with primary care physician in 1 week. HOSPITAL COURSE: A 53-year-old male with above-mentioned medical problem who was brought by to the emergency room because patient was altered at home. His ammonia was significantly elevated. He has underlying liver cirrhosis with portal hypertension. He was admitted to medical floor for hepati c encephalopathy. We treated him with lactulose and rifaximin while in hospital. Upon discharge, we prescribed lactulose. We provided dietary education and patient education about lactulose to have a t least 2 or 3 daily bowel movement. All new medication prescription sent to his pharmacy. The ora ent is seen and examined at bedside today. He is back to his normal level. Please see my progress note from today for further detail.
[2018-06-06 12:07] VITALS: BP 122/68; TEMP 98
--- NOTE | 2018-06-09 16:35 | EKG ---
Test Reason : Blood Pressure : / mmHG Vent. Rate : 070 BPM Atrial Rate : 070 BPM P-R Int : 132 ms QRS Dur : 088 ms QT Int : 422 ms P-R-T Axes : 056 036 048 degrees QTc Int : 455 ms Normal sinus rhythm Normal ECG Confirmed by ADELA HUNT ([id number]), purchase request editor ROBB LYNCH ([id number]) on 06/09/2018 4:34:58 PM Referred By: Confirmed By:ADELA HUNT
== END 2018-06-06 13:50 | disposition home or self-care (01) | DRG 442 ==
LOC: ERS 08:38 → T4-A 10:26
PROVIDERS: ADMIT Internal Medicine; ATTEND Internal Medicine
DX: K72.90 Hepatic failure, unspecified without coma (principal); K76.6 Portal hypertension; D61.818 Other pancytopenia; I85.00 Esophageal varices without bleeding; R27.8 Other lack of coordination; K70.30 Alcoholic cirrhosis of liver without ascites; E66.9 Obesity, unspecified; Z68.31 Body mass index [BMI] 31.0-31.9, adult; E11.9 Type 2 diabetes mellitus without complications
CPT/HCPCS: 36415; 36416; 70450; 80053; 80306; 81003; 82140; 82550; 83690; 85025; 93005; Q0162; S0028

== ENCOUNTER 2018-06-29 16:40 | Emergency (ER) | payer OTHER, SELFPAY ==
[2018-06-29 17:32] LABS: Bilirubin Negative (Negative); Blood, Urine Negative (Negative); Clarity CLEAR (Clear); Glucose, Urine (Dipstick) 500 mg/dL (Negative); Leukocyte Negative (Negative); Nitrite Negative (Negative); Protein, Urine (Dipstick) Negative (Neg-Trace); Specific Gravity, Urine 1.011 (1.002-1.036); pH, Urine 7.5 (5.0-9.0)
[2018-06-29 17:38] LABS: #Basophils 0.1 thou/uL (0.0-0.2); #Eosinphils 0.2 thou/uL (0.0-0.7); #Lymphocytes 1.4 thou/uL (1.20-3.40); #Monocytes 0.6 thou/uL (0.11-0.59); %Basophils 2.3 % (0.0-1.0); %Eosinophils 4.7 % (0.0-10.0); %Lymphocytes 32.7 % (21.0-51.0); %Monocytes 13.7 % (0.0-10.0); %Neutrophils 46.6 % (42.0-75.0); Hemoglobin 12.1 g/dL (14.0-18.0); Mean Corpuscular HGB CONC 33.2 g/dL (32.0-36.0); Mean Corpuscular Hemoglobin 30.6 pg (27.0-31.0); Mean Corpuscular Volume 92.2 fL (78.0-98.0); Mean Platelet Volume 9.9 fL (7.4-10.4); Platelet Count 60 thou/uL (130-400); RBC Distribution Width 17.3 % (11.5-14.5); Red Blood Cell (RBC) Count 3.95 mill/uL (4.70-6.10); White Blood Cell (WBC) Count 4.3 thou/uL (4.8-10.8)
[2018-06-29 17:56] LABS: ALT (SGPT) 33 U/L (8-55); AST (SGOT) 29 U/L (5-34); Albumin 2.6 g/dL (3.5-5.0); Alkaline Phosphatase 144 U/L (40-150); Anion Gap 9 mmol/L (10-20); BUN (Urea Nitrogen) 5 mg/dL (8.4-25.7); Bilirubin, Total 2.1 mg/dL (0.2-1.2); Calc. Creatinine Clearance 0 mL/min (70-130); Calcium 8.3 mg/dL (7.8-10.44); Carbon Dioxide 25 mmol/L (22-29); Chloride 101 mmol/L (98-107); Estimated GFR-MDRD Greater than 90; Globulin 3.6 g/dL (2.4-3.5); Glucose 260 mg/dL (70-105); Lipase 35 U/L (8-78); Potassium 4.5 mmol/L (3.5-5.1); Protein, Total 6.2 g/dL (6.0-8.3); Sodium 130 mmol/L (136-145)
[2018-06-29] MEDS ORDERED: Lidocaine 2% Jelly 5 ML TUBE ONE (18:30)
== END 2018-06-29 19:13 | disposition home or self-care (01) ==
LOC: ERS 16:40
DX: K60.2 Anal fissure, unspecified (principal); I10 Essential (primary) hypertension; E11.9 Type 2 diabetes mellitus without complications
CPT/HCPCS: 80053; 81003; 83690; 85025; 99283

== ENCOUNTER 2018-07-16 11:53 | Inpatient (IN) | payer MEDICAID ==
[2018-07-16 13:10] LABS: #Eosinphils 0.3 thou/uL (0.0-0.7); #Lymphocytes 1.5 thou/uL (1.20-3.40); #Monocytes 0.5 thou/uL (0.11-0.59); #Neutrophils 1.7 thou/uL (1.40-6.50); %Basophils 1.2 % (0.0-1.0); %Eosinophils 6.8 % (0.0-10.0); %Lymphocytes 37.1 % (21.0-51.0); %Monocytes 12.4 % (0.0-10.0); %Neutrophils 42.5 % (42.0-75.0); Hemoglobin 13.2 g/dL (14.0-18.0); Mean Corpuscular HGB CONC 33.2 g/dL (32.0-36.0); Mean Corpuscular Hemoglobin 30.7 pg (27.0-31.0); Mean Corpuscular Volume 92.6 fL (78.0-98.0); Mean Platelet Volume 9.3 fL (7.4-10.4); Platelet Count 62 thou/uL (130-400); Red Blood Cell (RBC) Count 4.31 mill/uL (4.70-6.10)
[2018-07-16 13:21] LABS: PTT 46.9 SEC (22.9-36.1)
[2018-07-16 13:22] LABS: INR-International Normal Ratio 1.9; Prothrombin Time 21.6 SEC (12.0-14.7)
[2018-07-16] MEDS ORDERED: Octreotide Acetate 100 MCG/ML VIAL ONE (13:24)
[2018-07-16] MEDS ORDERED: Pantoprazole 40 MG VIAL ONE ×2 (13:24→13:25)
[2018-07-16 13:29] LABS: ALT (SGPT) 20 U/L (8-55); AST (SGOT) 26 U/L (5-34); Albumin 2.5 g/dL (3.5-5.0); Alkaline Phosphatase 92 U/L (40-150); Anion Gap 7 mmol/L (10-20); BUN (Urea Nitrogen) 7 mg/dL (8.4-25.7); Bilirubin, Total 2.6 mg/dL (0.2-1.2); Calc. Creatinine Clearance 0 mL/min (70-130); Calcium 8.5 mg/dL (7.8-10.44); Carbon Dioxide 27 mmol/L (22-29); Chloride 103 mmol/L (98-107); Estimated GFR-MDRD Greater than 90; Globulin 3.6 g/dL (2.4-3.5); Glucose 250 mg/dL (70-105); Potassium 4.1 mmol/L (3.5-5.1); Protein, Total 6.1 g/dL (6.0-8.3); Sodium 133 mmol/L (136-145)
[2018-07-16] MEDS ORDERED: Octreotide Acetate 1,250 MCG in Sodium Chloride 0.9% 250 ML 250 ML IVPB SCH ×4 (13:45→21:15)
[2018-07-16] MEDS ORDERED: Octreotide Acetate 50 MCG/ML AMP SLOW IVP SCH (13:45)
[2018-07-16] MEDS ORDERED: Ondansetron PF 4 MG/2 ML Vial IVP PRN ×2 (14:05→21:03)
[2018-07-16] MEDS ORDERED: Pantoprazole 80 MG in Sodium Chloride 0.9% 100 ML IVPB SCH ×2 (14:15→21:15)
[2018-07-16] MEDS ORDERED: Dextrose 50% Abboject 50 ML SYRINGE SLOW IVP PRN ×2 (14:26→21:05)
[2018-07-16] MEDS ORDERED: HumaLOG 300 UNITS/3 ML VIAL SC PRN (14:26)
[2018-07-16] MEDS ORDERED: Dextrose 5% in Water 1,000 ML IV PRN (14:26)
--- NOTE | 2018-07-16 15:14 | HP ---
PRIMARY CARE PROVIDER: [facility]. CHIEF COMPLAINT: Vomiting blood. HISTORY OF PRESENT ILLNESS: Mr. Deepika Velasco is a pleasant 53-year-old gentleman who was seen at [facility] on 07/16/2018. He has a history of liver cirrhosis and esophageal va rices. He had a TIPS procedure done in April of this year. He reports that he was doing well until yesterday. Yesterday, he vomited once. He reports bright re d blood in the vomitus. This morning, he had 2 bowel movements that were bloody. He reports occasio nal lightheadedness. He denies any chest pain or shortness of breath. He denies any abdominal pain. REVIEW OF SYSTEMS: All other systems reviewed and found to be negative. PAST MEDICAL HISTORY: Hypertension, diabetes mellitus type 2, and liver cirrhosis. PAST SURGICAL HISTORY: Skull surgery and TIPS procedure. SOCIAL HISTORY: The patient denies tobacco use, alcohol use or recreational drug use. FAMILY HISTORY: No family history of premature coronary artery disease. ALLERGIES: CEPHALEXIN. CURRENT MEDICATIONS: Pepcid 20 mg 2 times a day, lactulose 20 grams 2 times a day, propranolol 10 mg 2 times a day, Lasix 20 mg daily, spironolactone 25 mg daily, ferrous sulfate 325 mg daily, metformi n 500 mg 2 times a day, vitamin B12 of 1000 mcg daily and folic acid 0.4 mg daily. PHYSICAL EXAMINATION: GENERAL: Mr. Deepika Velasco is awake and alert, not in acute distress. VITAL SIGNS: Blood pressure is 137/76, pulse 50, respiratory rate 18, and oxygen saturation 100% on room air. He is afebrile. EYES: He has scleral icterus. No conjunctival pallor. ENT: Moist mucosal membranes, no oropharyngeal erythema or exudates. NECK: Supple, nontender, trachea is midline. RESPIRATORY: Accessory muscles of breathing are not active. Chest wall movements are symmetric bila terally. LUNGS: Clear to auscultation without wheeze, rhonchi or crepitations. CARDIOVASCULAR: S1 and S2 are heard, regular. Peripheral pulses palpable. No carotid bruit, no per icardial rub. ABDOMEN: Soft, nontender, bowel sounds are heard, no hepatomegaly, no splenomegaly. NEUROLOGIC: Cranial nerves II-XII intact, deep tendon reflexes are 2+. MUSCULOSKELETAL: Power is 5/5 in all 4 extremities. SKIN: Spider nevi present. LYMPHATIC: No cervical lymphadenopathy. PSYCHIATRIC: Normal mood, normal affect, patient is oriented to person, place, and time. LABORATORY DATA: Mr. Deepika Velasco's labs and investigations were reviewed. He has pancytopenia wit h 4000 white cells, normocytic anemia with hemoglobin 13.2 and platelet count of 62,000. Last known hemoglobin was 12.1 on 06/29/2018. INR is 1.9. Sodium is decreased at 133. Creatinine is normal. Total bilirubin is elevated at 2.6. AST, ALT and alkaline phosphatase levels are normal. Albumin is decreased at 2.5. ASSESSMENT AND PLAN: Mr. Deepika Velasco is a pleasant 53-year-old gentleman who was seen at [facility] on 07/16/2018. His problem list includes: 1. Symptomatic anemia: Mr. Deepika Velasco is presenting with symptomatic anemia. His presentation i s concerning for both upper and lower gastrointestinal bleed. He will be admitted to the hospital fo r further management. I will continue him on octreotide and Protonix drip. The emergency room physi giorgi has consulted Gastroenterology Service for opinion and help with further management. 2. Pancytopenia: Likely secondary to liver cirrhosis, will monitor counts. 3. Diabetes mellitus type 2. We will start patient on Accu-Cheks and insulin sliding scale. 4. Hypertension: We will monitor vital signs, titrate antihypertensives as needed. Hemodynamics is currently stable. Many thanks for allowing me to participate in Mr. Deepika Velasco's care. Please feel free to contact me with any questions or concerns. LEVEL OF RISK: Moderate. LEVEL OF COMPLEXITY: Moderate.
[2018-07-16 16:01] LABS: Hemoglobin 12.9 g/dL (14.0-18.0)
[2018-07-16] MEDS ORDERED: GoLYTELY 4,000 ml Bottle PO SCH ×2 (18:00→21:00)
[2018-07-16 19:55] VITALS: BMI 32.9
[2018-07-16] MEDS ORDERED: Pantoprazole 80 MG, Admixture Fee 1 EACH in Sodium Chloride 0.9% 100 ML IVPB SCH (21:15)
--- NOTE | 2018-07-16 22:35 | CON ---
DATE OF SERVICE: 07/16/2018 REQUESTING PHYSICIAN: Dr. Gorman. REASON FOR CONSULTATION: Hematemesis and gastrointestinal bleeding. HISTORY OF PRESENT ILLNESS: Mr. Carlos Velasco is a 53-year-old gentleman, patient of my GI co [place], Dr. Mirza Junior. He has a history of cirrhosis secondary to prior alcohol use, for w [facility] he has been abstinent for over a year now. He underwent EGD and colonoscopy in 12/2017. The EG D showed some gastric varices which were banded and he was put on a nonselective beta gage. He al so had mild portal hypertensive colopathy, otherwise normal colonoscopy. I met him in 04/2018 when alma mijares presented with acute hematemesis and severe acute blood loss anemia. EGD at that time demonstrated small esophageal varices, but active bleeding from a gastric varix. I did attempt to band of the ga stric varix and then we urgently transferred him down to [place] to a tertiary care center where he u nderwent TIPS procedure. This evidently went very well. Over the past couple of months since then, he did have one admission earlier this month for a couple of days with hepatic encephalopathy. He is on lactulose for this. They now report that he is having about 3 bowel movements per day, taking la ctulose 3 times per day and the encephalopathy has been doing much better. He has not had any eviden ce of recurrent bleeding until yesterday. Yesterday, they report that in the morning, he had somewha t acute nausea and had emesis of a small amount of red blood. Then, this morning, he had a bowel mov ement and had a smear of red blood and then he had another bowel movement also with some red blood in it later today. Notably, he does not have any abdominal pain or presyncope. He is hemodynamically stable. His hemoglobin is 13.2, INR 1.9, and platelets 62. He has been started on Protonix and octr eotide drips and plan is for admission to the hospital. REVIEW OF SYSTEMS: Full review of systems including constitutional, head, eyes, ears, nose, throat, GI, , cardiovascular, respiratory, musculoskeletal, and neurologic systems is negative except as no jason in the HPI. PAST MEDICAL HISTORY: 1. Hypertension. 2. Diabetes type 2. 3. Cirrhosis secondary to alcohol abuse, abstinent for over a year now. 4. Esophageal varices status post banding. 5. Bleeding gastric varices status post emergent TIPS in 04/2018. 6. History of ascites. 7. History of aortic dissection. ALLERGIES: CEFTRIAXONE. MEDICATIONS: Pepcid 20 mg twice daily, lactulose 20 grams 2-3 times per day, propranolol 10 mg twice per day, Lasix 20 mg daily, spironolactone 25 mg daily, ferrous sulfate 325 mg daily, metformin 500 mg twice daily, vitamin B12 of 1000 mcg daily, folic acid 400 mcg daily. SOCIAL HISTORY: No current tobacco, alcohol or drug use. FAMILY HISTORY: Noncontributory. PHYSICAL EXAMINATION: VITAL SIGNS: Pulse 49, blood pressure 110/68, 100% oxygen saturation on room air. GENERAL: A 53-year-old man sitting up in bed comfortably, appears chronically ill, but nontoxic. SKIN: Mild jaundice, no rash visible or palpable. EYES: Mild scleral icterus. Extraocular movements intact. ENT: Mucous membranes moist, no oral lesions. LYMPH: No submandibular, supraclavicular lymphadenopathy. THYROID: Nontender to palpation. HEART: Regular rate and rhythm. LUNGS: Clear to auscultation bilaterally. ABDOMEN: Nondistended, bowel sounds present, soft and nontender to palpation throughout. EXTREMITIES: No peripheral edema. VESSELS: Radial pulses 2+ bilaterally. NEUROLOGICAL: Cranial nerves II-XII intact bilaterally. No focal deficits. LABORATORY STUDIES: WBC 4.0, hemoglobin 13.2, platelets 62. INR 1.9, glucose 250, BUN 7, creatinine 0.80, sodium 133, potassium 4.1, total bilirubin 2.6, alkaline phosphatase 92, AST 26, ALT 20, album in 2.5. Ammonia 68. FOBT positive. ASSESSMENT AND PLAN: 1. Hematemesis. 2. Rectal bleeding. 3. History of bleeding gastric varices status post TIPS in 04/2018. 4. Cirrhosis secondary to alcohol. The patient's hemodynamic stability and normal hemoglobin 13.2 are reassuring at this point. On the other hand, he does have a history of recent active bleeding from gastric varices. It is unclear whe ther the blood per rectum is related to this recent hematemesis episode or not. If the TIPS is still patent, I doubt that he would have recurrent variceal bleeding and this does not appear to be a vari ceal bleed, clinically. However, particularly given his recent history, further investigation is war ranted. I agree with the Protonix and octreotide infusions for now. We will administer bowel prepar ation and plan for diagnostic EGD and colonoscopy tomorrow. Thank you for the consultation. Please call any time with questions or concerns.
[2018-07-17 10:16] LABS: #Basophils 0.1 thou/uL (0.0-0.2); #Eosinphils 0.3 thou/uL (0.0-0.7); #Lymphocytes 1.3 thou/uL (1.20-3.40); #Monocytes 0.5 thou/uL (0.11-0.59); #Neutrophils 1.4 thou/uL (1.40-6.50); %Basophils 1.5 % (0.0-1.0); %Eosinophils 7.2 % (0.0-10.0); %Lymphocytes 38.2 % (21.0-51.0); %Monocytes 13.4 % (0.0-10.0); %Neutrophils 39.7 % (42.0-75.0); Hemoglobin 13.8 g/dL (14.0-18.0); Mean Corpuscular HGB CONC 33.5 g/dL (32.0-36.0); Mean Corpuscular Hemoglobin 31.1 pg (27.0-31.0); Mean Corpuscular Volume 92.8 fL (78.0-98.0); Mean Platelet Volume 9.5 fL (7.4-10.4); Platelet Count 60 thou/uL (130-400); RBC Distribution Width 15.8 % (11.5-14.5); Red Blood Cell (RBC) Count 4.45 mill/uL (4.70-6.10); White Blood Cell (WBC) Count 3.5 thou/uL (4.8-10.8)
[2018-07-17 10:27] LABS: Anion Gap 11 mmol/L (10-20); BUN (Urea Nitrogen) 5 mg/dL (8.4-25.7); Calc. Creatinine Clearance 184 mL/min (70-130); Calcium 8.1 mg/dL (7.8-10.44); Carbon Dioxide 23 mmol/L (22-29); Chloride 103 mmol/L (98-107); Estimated GFR-MDRD Greater than 90; Glucose 169 mg/dL (70-105); Potassium 4.4 mmol/L (3.5-5.1); Sodium 133 mmol/L (136-145)
[2018-07-17 10:48] LABS: PLT Morphology Comment Appears Decreased; RBC Morphology Normal
[2018-07-17] MEDS ORDERED: Ondansetron HCl/PF 4 MG/2 ML Vial IVP PRN (16:19)
[2018-07-17] MEDS ORDERED: Promethazine HCl 25 MG/ML VIAL SLOW IVP PRN (16:19)
[2018-07-17] MEDS ORDERED: Promethazine HCl 25 MG/ML VIAL IM PRN (16:19)
[2018-07-17] MEDS ORDERED: Sodium Chloride 0.9% 10 ML ONE (16:20)
[2018-07-17] MEDS ORDERED: Lidocaine 1% PF 5 ML VIAL ONE (17:39)
[2018-07-17] MEDS ORDERED: PROPOFOL 200 MG/20 ML VIAL ONE (17:39)
--- NOTE | 2018-07-17 17:44 | PDOC.PN ---
- Subjective Encounter Start Date: 07/17/18 Encounter Start Time: 09:00 Pt seen for followup re: symptomatic anemia. Denies chest pain, shortness of breath, fevers or chills. - Objective Vital Signs & Weight: Vital Signs (12 hours) Temp Pulse Resp BP Pulse Ox 07/17/18 11:00 97.9 F 43 L 18 111/62 100 07/17/18 08:00 100 07/17/18 07:53 97.6 F 42 L 18 111/67 100 Weight Weight 204 lb Result Diagrams: 07/17/18 09:52 07/17/18 09:52 Additional Labs: Accuchecks 07/17/18 07/17/18 07/17/18 17:11 13:57 11:31 POC Glucose 143 H 119 H 152 H 07/17/18 07/16/18 05:17 19:23 POC Glucose 254 H 153 H Phys Exam - Physical Examination Obese HEENT: moist MMs, oral pharynx no lesions, 2+ tonsils scleral icterus Neck: no nodes, no JVD, supple, full ROM Respiratory: no wheezing, no rales, no rhonchi, clear to auscultation bilateral Cardiovascular: RRR, no rub S1, S2 Gastrointestinal: soft, non-tender, positive bowel sounds distention Neurological: moves all 4 limbs Psychiatric: normal affect Deviation from normal: Oriented to person and place, not to time Deviation from normal: spider nevae Dx/Plan (1) Symptomatic anemia Code(s): D64.9 - ANEMIA, UNSPECIFIED Status: Acute Comment: Pt to have EGD today, continue to monitor counts (2) DM2 (diabetes mellitus, type 2) Status: Chronic Qualifiers: Comment: continue SSI, accuchecks. (3) Esophageal varices Code(s): I85.00 - ESOPHAGEAL VARICES WITHOUT BLEEDING Status: Chronic Comment: s/p TIPS (4) Pancytopenia Code(s): D61.818 - OTHER PANCYTOPENIA Status: Chronic Comment: secondary to liver cirrhosis - Plan plan discussed w/ family, out of bed/ambulate, DVT proph w/SCDs * . Review of Systems - Review of Systems Constitutional: negative: fever, chills, sweats, weakness, malaise Respiratory: negative: Cough, Shortness of Breath, SOB with Excertion, Pleuritic Pain, Wheezing Cardiovascular: negative: chest pain, palpitations, orthopnea, paroxysmal nocturnal dyspnea, edema, light headedness Gastrointestinal: negative: Nausea, Vomiting, Abdominal Pain, Diarrhea, Constipation, Melena, Hematochezia Genitourinary: negative: Dysuria, Frequency, Incontinence, Hematuria, Retention Skin: negative: Rash, Lesions, Oscar, Bruising - Medications/Allergies Allergies/Adverse Reactions: Allergies Allergy/AdvReac Type Severity Reaction Status Date / Time ceftriaxone [From Rocephin] Allergy Verified 06/04/18 14:18 Medications: Current Medications Dextrose/Water (Dextrose 50%) 25 gm SLOW IVP PRN PRN PRN Reason: Hypoglycemia Glucagon (Glucagon) 1 mg IM PRN PRN PRN Reason: Hypoglycemia Dextrose/Water (D5w) 1,000 mls @ 0 mls/hr IV .Q0M PRN PRN Reason: Hypoglycemia Insulin Human Lispro (Humalog) 0 units SC .MILD SLIDING SCALE PRN PRN Reason: Mild Correctional Scale Ondansetron HCl (Zofran) 4 mg IVP Q6H PRN PRN Reason: Nausea/Vomiting Last Admin: 07/16/18 23:14 Dose: 4 mg Ondansetron HCl (Pacu-Zofran) 4 mg IVP ONE PRN PRN Reason: Nausea/Vomiting Stop: 07/17/18 19:19 Pantoprazole Sodium (Protonix) 40 mg PO DAILY KACEY Promethazine HCl (Pacu-Phenergan) 6.25 mg SLOW IVP ONE PRN PRN Reason: Nausea/Vomiting Stop: 07/17/18 19:19 Promethazine HCl (Pacu-Phenergan) 6.25 mg IM ONE PRN PRN Reason: Nausea/Vomiting Stop: 07/17/18 19:19 Sodium Chloride (Flush - Normal Saline) 10 ml IVF PRN PRN PRN Reason: Saline Flush
--- NOTE | 2018-07-17 18:59 | OP ---
DATE OF PROCEDURE: 07/17/2018 PROCEDURE: Esophagogastroduodenoscopy and colonoscopy. PREOPERATIVE DIAGNOSES: Hematemesis and hematochezia. OPERATIVE NOTE: Informed consent was obtained from the patient. He was sedated with total intraveno us anesthesia. The bite block was placed and the endoscope was advanced easily to the second portion of the duodenum and retroflexion was performed in the stomach. The esophagus was normal overall. T here were no significant varices. Stomach had a large amount of solid food throughout the fundus and body of the stomach. The stomach was otherwise unremarkable. The duodenum was normal in the first and second portions. The patient was turned around. Rectal exam was performed and was normal. The colonoscope was advanced to the cecum where the ileocecal valve and appendiceal orifice were clearly identified. The preparation quality was fair at best. However, with extensive irrigation, adequate views were obtained. The colonoscopy was normal. Retroflexed views in the rectum revealed moderate internal hemorrhoids. IMPRESSION: 1. Large amount of retained solid food in the gastric body and fundus. He likely has some degree of gastroparesis. The hematemesis may have been from dry heaving related to this. His INR is elevated at 1.9. His platelets were low at 65,000. 2. Otherwise normal esophagogastroduodenoscopy without significant esophageal varices. 3. Moderate internal hemorrhoids, which is the likely source for the rectal bleeding given his low p latelets and high INR. 4. Otherwise normal colonoscopy with fair colon prep. RECOMMENDATIONS: 1. We will advance diet. 2. Change proton pump inhibitor to orally once daily. 3. Discontinue octreotide. 4. He can likely discharge home tomorrow. Follow up with Dr. Junior. He did have colonoscopy back in December that was negative, so should not have to have surveillance colonoscopy for 10 years.
[2018-07-17] MEDS: HumaLOG 300 UNITS/3 ML VIAL SC PRN (20:14)
[2018-07-18 05:38] LABS: Anion Gap 6 mmol/L (10-20); BUN (Urea Nitrogen) 7 mg/dL (8.4-25.7); Calc. Creatinine Clearance 176 mL/min (70-130); Carbon Dioxide 27 mmol/L (22-29); Chloride 106 mmol/L (98-107); Estimated GFR-MDRD Greater than 90; Glucose 187 mg/dL (70-105); Potassium 4.2 mmol/L (3.5-5.1); Sodium 135 mmol/L (136-145)
[2018-07-18] MEDS: HumaLOG 300 UNITS/3 ML VIAL SC PRN ×2 (05:41→12:33)
[2018-07-18 06:05] LABS: #Basophils 0.1 thou/uL (0.0-0.2); #Eosinphils 0.3 thou/uL (0.0-0.7); #Lymphocytes 1.5 thou/uL (1.20-3.40); #Monocytes 0.5 thou/uL (0.11-0.59); #Neutrophils 1.3 thou/uL (1.40-6.50); %Basophils 1.4 % (0.0-1.0); %Eosinophils 7.4 % (0.0-10.0); %Lymphocytes 41.1 % (21.0-51.0); %Monocytes 12.6 % (0.0-10.0); %Neutrophils 37.4 % (42.0-75.0); Mean Corpuscular HGB CONC 32.7 g/dL (32.0-36.0); Mean Corpuscular Volume 91.5 fL (78.0-98.0); Mean Platelet Volume 9.6 fL (7.4-10.4); Platelet Count 55 thou/uL (130-400); RBC Distribution Width 15.3 % (11.5-14.5); Red Blood Cell (RBC) Count 4.02 mill/uL (4.70-6.10); White Blood Cell (WBC) Count 3.6 thou/uL (4.8-10.8)
--- NOTE | 2018-07-18 14:15 | DIS ---
DATE OF ADMISSION: 07/16/2018 DATE OF DISCHARGE: 07/18/2018 PRIMARY CARE PHYSICIAN: Gladys Welch PA-C. PRIMARY SALESPERSON PIANOS AND ORGANS: Dr. Junior. DISCHARGE MEDICATION: New medication: Protonix 40 mg daily. Resume home medications as per the HPI . Please see detailed HPI for details. INHOUSE CONSULTATION: Gastroenterology, Dr. Barbosa. PROCEDURES DONE IN THE HOSPITAL: EGD and colonoscopy which shows some internal hemorrhoids without a ny significant bleed and in the EGD showed large amount of retained solid food in the gastric body an d fundus, possibly gastroparesis. Otherwise, normal EGD and colonoscopy. DISCHARGE DIAGNOSES: 1. Hematemesis with resultant acute blood loss anemia, which is symptomatic. 2. Pancytopenia secondary to liver cirrhosis. 3. Diabetes mellitus type 2. 4. Hypertension. 5. Alcoholic liver cirrhosis. 6. History of esophageal varices status post banding in the past. 7. Hypertension. 8. History of ascites. 9. History of aortic dissection. HISTORY OF PRESENT ILLNESS: Mr. Poe is a 53-year-old male with history mentioned as above with al coholic cirrhosis and history of variceal bleeding who presented to the emergency room with complaint s of some hematemesis. He actually has had TIPS procedure done in the outpatient setting earlier thi s year and follows up with Dr. Junior in the GI clinic. He is on lactulose for hepatic encephalopath y and has been having 2-3 bowel movements per day. He had acute onset of nausea and some vomiting wi th noticing red blood in the vomitus and then he had a smear red blood in his stools as well. He was otherwise hemodynamically stable, but decided to come to the emergency room given his history of reji iceal bleeding. His hemoglobin was 13.2, INR 1.9, and platelet count of 62. He was started on octre otide and Protonix drip and was admitted to Medicine and GI was consulted. Please see admission hist ory and physical for further detail. The patient's hemoglobin remained stable throughout the hospitalization. It was followed serially. The GI, Dr. Altman and Dr. Barbosa saw the patient and he underwent EGD and colonoscopy which did not hav e any significant amount of bleeding or any source of bleeding. He was found to have some internal h emorrhoids in the colonoscopy and some retained food in the EGD and it was thought that this is proba tulio the cause of some bleeding than he has dry heaves. He was eventually discontinued from octreotid e and Protonix drip and continued on oral Protonix and was cleared for discharge by GI. His discharg e hemoglobin was 12.0. He was seen and examined prior to discharge and is symptom free. He has not had any episode of hemat emesis, melena, or hematochezia in the hospital. PHYSICAL EXAMINATION: VITAL SIGNS: This morning, his vital signs included a temperature 97.8, heart rate 48-58, blood pres sure 112/67. GENERAL: No acute distress. CHEST: Clear to auscultation bilaterally. HEART: Rate and rhythm regular. DISCHARGE FOLLOWUP: He will follow up with primary care physician in 1-[address] Junior in 1 m [facility]. He will continue 10 mg of Inderal b.i.d. as his bradycardia is asymptomatic and he needs it fo r the history of varices. Total time spent 32 minutes.
[2018-07-18 14:57] VITALS: BP 110/61; TEMP 98.1
--- NOTE | 2018-07-18 15:42 | EKG ---
Test Reason : PREOP Blood Pressure : / mmHG Vent. Rate : 048 BPM Atrial Rate : 048 BPM P-R Int : 146 ms QRS Dur : 090 ms QT Int : 522 ms P-R-T Axes : 041 027 057 degrees QTc Int : 466 ms Sinus bradycardia Otherwise normal ECG Confirmed by EMMA CHANG ([id number]) on 07/18/2018 3:41:53 PM Referred By: ANGUS Confirmed By:EMMA CHANG
== END 2018-07-18 14:53 | disposition home or self-care (01) | DRG 394 ==
LOC: ERS 11:53 → T4-B 13:58 → ERS 19:03
PROVIDERS: ADMIT Internal Medicine; ATTEND Internal Medicine
PROC: 0DJ08ZZ Inspection of Upper Intestinal Tract, Via Natural or Artificial Opening Endoscopic (ICD-10-PCS; principal; 2018-07-16)
PROC: 0DJD8ZZ Inspection of Lower Intestinal Tract, Via Natural or Artificial Opening Endoscopic (ICD-10-PCS; 2018-07-16)
DX: K64.8 Other hemorrhoids (principal); D62 Acute posthemorrhagic anemia; D61.818 Other pancytopenia; I85.00 Esophageal varices without bleeding; K70.30 Alcoholic cirrhosis of liver without ascites; E11.9 Type 2 diabetes mellitus without complications; I10 Essential (primary) hypertension
CPT/HCPCS: 36415; 36416; 80048; 80053; 82140; 82274; 85025; 85610; 85730; 86850; 86900; 86901; 93005; 93010; 96365; 96366; 96375; C9113; J2001; J2354; J2405; J2704; J7050

== ENCOUNTER 2018-07-23 01:42 | Inpatient (IN) | payer MEDICAID, SELFPAY ==
[2018-07-23] MEDS ORDERED: Ondansetron PF 4 MG/2 ML Vial ONE (01:56)
[2018-07-23 02:34] LABS: Bilirubin Small (Negative); Blood, Urine Trace (Negative); Clarity CLEAR (Clear); Glucose, Urine (Dipstick) 100 mg/dL (Negative); Leukocyte Negative (Negative); Nitrite Negative (Negative); Protein, Urine (Dipstick) Negative (Neg-Trace); pH, Urine 6.5 (5.0-9.0)
[2018-07-23 02:36] LABS: Bacteria/HPF None Seen HPF (None Seen); Hyaline Casts/LPF 4-6 HYALINE CAST LPF (0-3 Hyaline); Pathc Cast-AUWi Flag 0.58 (0-2.49); Squamous Epithelial 0-3 HPF (0-3); WBC/HPF 0-3 HPF (0-3)
[2018-07-23 02:39] LABS: Medtox Reader # READER 1
[2018-07-23 02:40] LABS: Amphetamine Not Detected (NotDetected); Barbiturates Screen Not Detected (NotDetected); Benzodiazepine Screen Not Detected (NotDetected); Cocaine Metabolite Screen Not Detected (NotDetected); Methadone Not Detected (NotDetected); Methamphetamine Not Detected (NotDetected); Opiate Screen Not Detected (NotDetected); Oxycodone Screen Not Detected (NotDetected); Phencyclidine (PCP) Not Detected (NotDetected); THC/Cannabinoid Screen Not Detected (NotDetected); Tricyclic Screen Not Detected (NotDetected)
[2018-07-23 02:41] LABS: Medtox Control Line Valid? VALID (VALID)
[2018-07-23 02:45] LABS: INR-International Normal Ratio 1.9; PTT 45.1 SEC (22.9-36.1); Prothrombin Time 21.6 SEC (12.0-14.7)
[2018-07-23 02:45] LABS: #Eosinphils 0.1 thou/uL (0.0-0.7); #Lymphocytes 1.2 thou/uL (1.20-3.40); #Monocytes 0.3 thou/uL (0.11-0.59); #Neutrophils 3.1 thou/uL (1.40-6.50); %Basophils 0.6 % (0.0-1.0); %Lymphocytes 25.4 % (21.0-51.0); %Monocytes 6.3 % (0.0-10.0); %Neutrophils 64.7 % (42.0-75.0); Hemoglobin 14.6 g/dL (14.0-18.0); Mean Corpuscular HGB CONC 34.1 g/dL (32.0-36.0); Mean Platelet Volume 8.5 fL (7.4-10.4); Platelet Count 67 thou/uL (130-400); RBC Distribution Width 15.5 % (11.5-14.5); Red Blood Cell (RBC) Count 4.72 mill/uL (4.70-6.10); White Blood Cell (WBC) Count 4.8 thou/uL (4.8-10.8)
[2018-07-23 02:47] LABS: Oval Fat Bodies/HPF None Seen HPF (None Seen); Renal Epithelial 0-3 HPF (0-3); Sperm/HPF None Seen HPF (None Seen); Transitional Epithelial NONE SEEN HPF (0-3); Trichomonas/HPF None Seen HPF (None Seen); Yeast-All Forms None Seen HPF (None Seen)
[2018-07-23 02:59] LABS: ALT (SGPT) 25 U/L (8-55); AST (SGOT) 25 U/L (5-34); Albumin 2.9 g/dL (3.5-5.0); Alkaline Phosphatase 83 U/L (40-150); Anion Gap 10 mmol/L (10-20); BUN (Urea Nitrogen) 10 mg/dL (8.4-25.7); Bilirubin, Total 3.9 mg/dL (0.2-1.2); Calc. Creatinine Clearance 0 mL/min (70-130); Carbon Dioxide 23 mmol/L (22-29); Chloride 105 mmol/L (98-107); Estimated GFR-MDRD Greater than 90; Globulin 4.2 g/dL (2.4-3.5); Glucose 186 mg/dL (70-105); Lipase 21 U/L (8-78); Protein, Total 7.1 g/dL (6.0-8.3); Sodium 133 mmol/L (136-145)
[2018-07-23 03:00] LABS: Acetaminophen Less than 6.0 mcg/mL (10.0-30.0); Alcohol Less than 10 mg/dL (Less than 10); Salicylate Less than 8.0 mg/dL (15.0-30.0)
[2018-07-23 05:41] VITALS: BMI 31.8
[2018-07-23 05:49] LABS: Magnesium 1.6 mg/dL (1.6-2.6); Phosphorus 3.3 mg/dL (2.3-4.7)
[2018-07-23] MEDS ORDERED: Artificial Tears 18 DROP/0.9 ML EA EYE PRN (07:12)
[2018-07-23] MEDS ORDERED: Ondansetron ODT 4 MG TAB SL PRN (07:12)
[2018-07-23] MEDS ORDERED: Sodium Chloride 0.65% Nasal 44 ML BOT EA NARE PRN (07:12)
[2018-07-23] MEDS ORDERED: hydrALAZINE 20 MG/ML VIAL SLOW IVP PRN (07:12)
[2018-07-23] MEDS ORDERED: Ondansetron PF 4 MG/2 ML Vial IVP PRN (07:12)
[2018-07-23] MEDS ORDERED: Eucerin (Mineral Oil/Petrolatum,White) 30 gm Jar TOP PRN (07:12)
[2018-07-23] MEDS ORDERED: Acetaminophen 325 MG TAB PO PRN (07:12)
[2018-07-23] MEDS ORDERED: Dextrose 50% Abboject 50 ML SYRINGE SLOW IVP PRN (07:15)
[2018-07-23] MEDS ORDERED: Dextrose 5% in Water 1,000 ML IV PRN (07:15)
--- NOTE | 2018-07-23 08:29 | CT ---
PRELIMINARY REPORT/[facility]/EMERGENTY AFTER-HOURS PROCEDURE CT Head Without Intravenous Contrast EXAM DATE/TIME: 07/23/2018 2:36 AM CLINICAL HISTORY: 53 years old, male; Injury or trauma; Fall; Initial encounter; Abrasion; Not specified; Patient HX: F ell from bed. 2 feet from ground; AMS TECHNIQUE: Axial computed tomography images of the head/brain without intravenous contrast. COMPARISON: No relevant prior studies available. FINDINGS: Brain: No brain edema. No intracranial hemorrhage. Ventricles: Normal. No ventriculomegaly. Bones/joints: Prior right suboccipital craniectomy. Sinuses: Normal as visualized. No acute sinusitis. Mastoid air cells: Normal as visualized. No mastoid effusion. Soft tissues: Normal. IMPRESSION: No acute brain findings. Thank you for allowing us to participate in the care of your patient. Dictated and Authenticated by: Gurinder Plasencia MD 07/23/2018 2:48 AM Central Time ([place] & [place]) FINAL REPORT CT OF THE HEAD NONCONTRAST: DATE: 07/23/2018. TIME: Performed on an emergency basis at 0237 hours. HISTORY: Fall. Head injury. Altered mental status. COMPARISON: 06/04/2018. FINDINGS: Agree with the preliminary report by Dr. Plasencia from [facility]. Chronic-type findings are s table. No acute intracranial abnormalities are demonstrated. POS: MARY
[2018-07-23] MEDS ORDERED: Ferrous Sulfate 325 MG TAB PO SCH (09:00)
[2018-07-23] MEDS: Famotidine/PF 20 mg/2ml Vial SLOW IVP SCH ×2 (09:06→20:34)
[2018-07-23] MEDS: Propranolol 10 MG TAB PO SCH ×2 (09:06→20:31)
[2018-07-23] MEDS: Rifaximin 550 MG TAB PO SCH ×2 (09:06→20:32)
[2018-07-23] MEDS: Cyanocobalamin (Vitamin B-12) 1,000 MCG TAB PO SCH (09:06)
[2018-07-23] MEDS: Folic Acid 1 MG TAB PO SCH (09:06)
[2018-07-23] MEDS: Dextrose 5 % And 0.9 % NaCl 1,000 ML IV SCH (09:21)
--- NOTE | 2018-07-23 10:48 | HP ---
PRIMARY CARE PHYSICIAN: [facility]. REASON FOR ADMISSION: Hepatic encephalopathy, gastrointestinal bleed. HISTORY OF PRESENT ILLNESS: This is a 53-year-old male, who has underlying history of cirrh osis of liver, secondary to alcohol as well as history of portal hypertension and esophageal varices, who was brought to emergency room by his , because patient fell down from bed. He was confused and incoherent. He also had a couple of times bright red blood in vomitus. He did not have any feve r or chills. The patient appeared very weak and that is why patient's called paramedics. The p atient was brought to emergency room. He had elevated ammonia level. The patient was completely let hargic and somnolent, unable to provide a history. His vitals were stable. The patient was admitted to medical floor. His is present, who provided history. The patient is confused, who cannot p articipate with the history. He did not have any melena or hematochezia. He did not have any upper or lower respiratory symptoms. He did not have any UTI symptoms. He was not complaining of any abdo darian pain. He denies any alcohol or other illicit drug abuse. He denies any NSAID abuse. The patient's reports that she was not giving enough lactulose to him. This patient has a 3-4 admissions in the last couple of months for same problem. PAST MEDICAL HISTORY: Cirrhosis of liver due to alcohol, portal hypertension, esophageal varices, hi story of GI bleed, chronic normocytic anemia, history of alcohol abuse in the past. Diabetes, type 2 . PAST SURGICAL HISTORY: Upper endoscopy for esophageal variceal bleeding and banding was performed. History of upper endoscopy and gastric banding was performed for gastric varices. Middle ear infecti on, treated with debridement. PAST PSYCHIATRIC HISTORY: Reviewed and negative. FAMILY HISTORY: No family history of coronary artery disease, stroke, or cancer. SOCIAL HISTORY: Patient is . His is present at bedside. No history of current tobacco, alcohol, or illicit drug abuse, but the patient has a remote history of alcohol abuse, which he quit currently. REVIEW OF SYSTEMS: All review of systems tried to review with the patient, but unable to review at t his point, because of patient's altered mental status and incoherent and he is not reliable. ALLERGIES: ROCEPHIN. CURRENT HOME MEDICATIONS: The patient was recently discharged from hospital on following medications : Lasix 20 mg daily p.r.n., Aldactone 25 mg p.o. daily p.r.n., Protonix 40 mg p.o. b.i.d., lactulose t.i.d., Humalog insulin as per sliding scale, ferrous sulfate 325 mg p.o. daily, folic acid 1 mg p.o . daily, Inderal 10 mg p.o. b.i.d. EMERGENCY ROOM COURSE: Patient is given lactulose 30 gram and Zofran. PHYSICAL EXAMINATION: VITAL SIGNS: On arrival, blood pressure 151/65, pulse 53, respiratory rate 22, temperature 97.7, sat uration 100% on room air, weight 92.5 kilograms. GENERAL: Patient is currently awake, confused, incoherent. HEENT: Head: Normocephalic, atraumatic. Eyes: Pupils round and reactive to light. Icterus noted. Conjunctivae pale. ENT: Oropharynx within normal limits. Dry-appearing mucous membrane, no oral lesion, no pharyngeal erythema, no exudate. NECK: Supple, no JVD, no thyromegaly, no carotid bruit. LUNGS: Clear to auscultation without any rhonchi or rales. CARDIAC: S1 and S2 appears regular without any significant murmur. ABDOMEN: Soft, no peritoneal sign, no guarding, no rigidity, no rebound. BACK EXAMINATION: Unremarkable. No CVA tenderness. EXTREMITIES: Upper extremities, passive movement of all joints are normal. Lower extremities, no ed robin. Good distal pulsation. SKIN: No skin rash. HEMATOLOGICAL SYSTEM: No lymphadenopathy. NEUROLOGIC: Patient is confused. He has asterixis. No focal neurological deficit noted. He moves all 4 limbs. SIGNIFICANT LABORATORY DATA: EKG showing sinus bradycardia. CT brain, based on my review, no acute intracranial process. CBC: WBC 4.8, hemoglobin 14.6, platelets 67. INR 1.9. BMP: Sodium 133, pot assium 5.0, chloride 105, carbon dioxide 23, anion gap 10, BUN 10, creatinine 0.70, glucose 186, calc ium 9.0, phosphorus 3.3, magnesium 1.6. LFT: Bilirubin 3.9, AST 25, ALT 25, alkaline phosphatase 83 , albumin 2.9, lipase 21. Ammonia 131. Urinalysis unremarkable. Urine drug screen negative. Serum drug screen negative. ASSESSMENT: 1. Acute hepatic encephalopathy. 2. Acute mild upper gastrointestinal bleed. 3. Thrombocytopenia due to hypersplenism and portal hypertension. 4. Coagulopathy due to liver cirrhosis. 5. Hyperbilirubinemia due to end-stage liver disease. 6. Hypoalbuminemia due to end-stage liver disease. 7. Diabetes, type 2. 8. History of esophageal and gastric varices. PLAN: Admission to medical floor. Start dextrose with NS at 50 mL per hour. Medic Technician is consulted. We will give him lactulose 20 grams p.o. t.i.d. and we will also give him one-time dose o f enema if needed. Resume selected home medication including vitamin B12, ferrous sulfate, folic aci d, Inderal. We will also add rifaximin 550 mg p.o. b.i.d. We will repeat labs tomorrow. Once patien t is more alert, then we will consider starting diet. We will provide fall precaution and aspiration precaution. CODE STATUS: The patient is FULL CODE. The patient's is surrogate decision maker. Gastrointestinal prophylaxis, Pepcid 20 mg IV b.i.d. Disposition plan based on clinical course. We will closely monitor in hospital. Plan of care discussed with the patient and at bedside.
[2018-07-23] MEDS ORDERED: Lactulose 10 GM/15 ML Oral Solution PO SCH (12:00)
--- NOTE | 2018-07-23 12:54 | CON ---
DATE OF CONSULTATION: 07/23/2018 CHIEF COMPLAINT: Confusion. HISTORY OF PRESENT ILLNESS: Mr. Poe is a 53-year-old man with a history of cirrhosis at her prior TIPS procedure for varices who presented with confusion. He was just discharged from the hospital l ast week. He did just fine on , Monday, and Monday without any problems. He went a couple of days without a bowel movement despite taking lactulose 3 times a day. Monday, he became confused and he developed nausea and vomiting. He did vomit once with streaks of blood, low volume. He is s till nauseated this morning. He has no abdominal pain and he has had no bowel movement yet. PAST MEDICAL HISTORY: Cirrhosis secondary to alcohol, abstinent for years; diabetes mellitus; hypert ension; esophageal varices, status post banding and gastric varices, status post emergent TIPS in Apr; has a history of ascites; history of aortic dissection. He was just admitted to the hospit al last week with hematemesis. I performed EGD and colonoscopy on 07/17/2018, which were negative fo r significant varices. Moderate internal hemorrhoids were noted. He did have a lot of food retained in the stomach consistent with gastroparesis. PAST SURGICAL HISTORY: Upper and lower endoscopy, TIPS. FAMILY HISTORY: Negative for GI malignancy. SOCIAL HISTORY: No alcohol, tobacco, or drugs. ALLERGIES: CEFTRIAXONE MEDICATIONS: As an outpatient, Pepcid and lactulose, he has been taking 3 times daily. Propranolol 10 mg twice daily, furosemide 20 mg daily, spironolactone 25 mg. He is on insulin, lactulose, metfor min, ferrous sulfate, folic acid, B12. It is unclear if he has been taking pantoprazole lately. REVIEW OF SYSTEMS: Negative x10 systems reviewed except as stated in history of present illness. PHYSICAL EXAMINATION: VITAL SIGNS: Temperature 98.1, pulse 51, blood pressure 175/65. GENERAL: He is in no acute distress. He is awake and alert. EYES: Have no scleral icterus. OROPHARYNX: Clear, without lesions. NECK: No cervical or supraclavicular lymphadenopathy. HEENT: He has obvious asterixis by neurological exam. LUNGS: Clear to auscultation bilaterally. HEART: Regular rate and rhythm without murmur. ABDOMEN: Soft, nontender, nondistended. Bowel sounds are present. EXTREMITIES: No lower extremity edema. IMPRESSION: 1. Hepatic encephalopathy. He went a couple of days without a bowel movement despite use of lactulo se. I discussed titrating the dose up with his as needed. We will add rifaximin and if possibl e; however, obtaining this as an outpatient is likely cost prohibitive. He apparently has Medicaid p ending. 2. Cirrhosis secondary to past alcohol. He has been abstinent. 3. History of esophageal and gastric varices. He had some streaks of blood in his vomitus, but no s ignificant overt bleeding. We should be able to stop the antibiotics at this point. I do not think he is having a significant bleed. This likely was just mild Annette-Dong but no ongoing bleeding. 4. Question of gastroparesis. A large amount of retained food in his stomach with the endoscopy las t week despite having taken a bowel prep for the colonoscopy with a decent prep obtained in the colon . He appears to be having fluid going around and retained food in the stomach procedure. RECOMMENDATIONS: 1. Restart lactulose. Given his current nausea, vomiting, and lack of stool output, we will give la ctulose enema followed by increased dose of oral lactulose. 2. We may need to consider adding a Reglan at some point; however, given the hepatic encephalopathy, it may be difficult to assess for neurological side effects. May be better to do a gastric emptying scan in the future first. 3. He has been started on Xifaxan here in the hospital. We will see if this can be continued as an outpatient. 4. Stop ferrous sulfate as this may be constipating and his hemoglobin is normal. 5. We will stop the antibiotics for now since there is no significant overt bleeding. Appears to be on this as SBP prophylaxis. 6. Once he is achieving adequate bowel movements with adequate dosing of lactulose and his mental st atus clears, he should be ready for discharge to home.
[2018-07-23] MEDS: HumaLOG 300 UNITS/3 ML VIAL SC PRN ×2 (18:36→20:33)
[2018-07-24] MEDS: Dextrose 5 % And 0.9 % NaCl 1,000 ML IV SCH (04:30)
[2018-07-24 04:57] LABS: #Basophils 0.1 thou/uL (0.0-0.2); #Eosinphils 0.3 thou/uL (0.0-0.7); #Lymphocytes 2.1 thou/uL (1.20-3.40); #Monocytes 0.6 thou/uL (0.11-0.59); #Neutrophils 1.8 thou/uL (1.40-6.50); %Basophils 1.7 % (0.0-1.0); %Eosinophils 5.4 % (0.0-10.0); %Lymphocytes 44.3 % (21.0-51.0); %Monocytes 12.5 % (0.0-10.0); %Neutrophils 36.2 % (42.0-75.0); Hemoglobin 12.1 g/dL (14.0-18.0); Mean Corpuscular HGB CONC 34.8 g/dL (32.0-36.0); Mean Corpuscular Hemoglobin 31.7 pg (27.0-31.0); Mean Corpuscular Volume 90.9 fL (78.0-98.0); Mean Platelet Volume 9.5 fL (7.4-10.4); Platelet Count 60 thou/uL (130-400); RBC Distribution Width 15.2 % (11.5-14.5); Red Blood Cell (RBC) Count 3.81 mill/uL (4.70-6.10); White Blood Cell (WBC) Count 4.8 thou/uL (4.8-10.8)
[2018-07-24 05:10] LABS: ALT (SGPT) 20 U/L (8-55); AST (SGOT) 21 U/L (5-34); Albumin 2.3 g/dL (3.5-5.0); Alkaline Phosphatase 61 U/L (40-150); Anion Gap 7 mmol/L (10-20); BUN (Urea Nitrogen) 9 mg/dL (8.4-25.7); Bilirubin, Total 3.5 mg/dL (0.2-1.2); Calc. Creatinine Clearance 178 mL/min (70-130); Carbon Dioxide 24 mmol/L (22-29); Chloride 106 mmol/L (98-107); Estimated GFR-MDRD Greater than 90; Globulin 3.3 g/dL (2.4-3.5); Glucose 170 mg/dL (70-105); Potassium 3.7 mmol/L (3.5-5.1); Protein, Total 5.6 g/dL (6.0-8.3); Sodium 133 mmol/L (136-145)
[2018-07-24] MEDS: Folic Acid 1 MG TAB PO SCH (08:48)
[2018-07-24] MEDS: Cyanocobalamin (Vitamin B-12) 1,000 MCG TAB PO SCH (08:48)
[2018-07-24] MEDS: Rifaximin 550 MG TAB PO SCH ×2 (08:48→19:43)
[2018-07-24] MEDS: Propranolol 10 MG TAB PO SCH ×2 (08:49→20:05)
[2018-07-24] MEDS ORDERED: Prevnar 13-Val Conj/PF 0.5 ML SYRINGE IM ONE (09:00)
--- NOTE | 2018-07-24 09:53 | PDOC.PN ---
- Subjective Encounter Start Date: 07/24/18 Encounter Start Time: 08:20 -: old records requested/rev Patient seen and examined. No new complaints. No overnight events no vomiting, had only one BM - Objective Resuscitation Status: Resuscitation Status FULL:Full Resuscitation MAR Reviewed: Yes Vital Signs & Weight: Vital Signs (12 hours) Temp Pulse Resp BP Pulse Ox 07/24/18 08:00 96 07/24/18 07:30 98.6 F 57 L 18 115/58 L 96 07/24/18 04:00 98.2 F 58 L 20 92/55 L 97 Weight Weight 197 lb I&O: 07/23/18 07/24/18 07/25/18 06:59 06:59 06:59 Intake Total 1560 Balance 1560 Result Diagrams: 07/24/18 04:12 07/24/18 04:12 Additional Labs: Accuchecks 07/24/18 07/23/18 07/23/18 04:26 19:54 16:10 POC Glucose 153 H 242 H 204 H 07/23/18 11:24 POC Glucose 126 H Phys Exam - Physical Examination Constitutional: NAD HEENT: PERRLA, moist MMs icterus+ Neck: no JVD, supple Respiratory: no wheezing, no rales, no rhonchi Cardiovascular: RRR, no significant murmur, no rub Gastrointestinal: soft, non-tender, no distention, positive bowel sounds Musculoskeletal: no edema, pulses present Neurological: non-focal, normal sensation, moves all 4 limbs Lymphatic: no nodes Psychiatric: normal affect, A&O x 3 Skin: no rash, normal turgor Dx/Plan (1) Hepatic encephalopathy Code(s): K72.90 - HEPATIC FAILURE, UNSPECIFIED WITHOUT COMA Status: Acute Comment: (2) Alcoholic cirrhosis of liver Code(s): K70.30 - ALCOHOLIC CIRRHOSIS OF LIVER WITHOUT ASCITES Status: Chronic (3) DM2 (diabetes mellitus, type 2) Status: Chronic Qualifiers: Comment: continue SSI, accuchecks. (4) Esophageal varices Code(s): I85.00 - ESOPHAGEAL VARICES WITHOUT BLEEDING Status: Chronic Comment: (5) Obesity (BMI 30-39.9) Code(s): E66.9 - OBESITY, UNSPECIFIED Status: Chronic (6) Portal hypertension Code(s): K76.6 - PORTAL HYPERTENSION Status: Chronic (7) Thrombocytopenia Code(s): D69.6 - THROMBOCYTOPENIA, UNSPECIFIED Status: Chronic - Plan cont current plan of care, plan discussed w/ family, continue antibiotics * medication reviewed as below * symptomatic treatment * continue lactulose * advance diet * ambulate today * will discharge tomorrow * discussed with . Review of Systems - Review of Systems ENT: negative: Ear Pain, Ear Discharge, Nose Pain, Nose Discharge, Nose Congestion, Mouth Pain, Mouth Swelling, Throat Pain, Throat Swelling, Other Respiratory: negative: Cough, Dry, Shortness of Breath, Hemoptysis, SOB with Excertion, Pleuritic Pain, Sputum, Wheezing Cardiovascular: negative: chest pain, palpitations, orthopnea, paroxysmal nocturnal dyspnea, edema, light headedness, other Gastrointestinal: negative: Nausea, Vomiting, Abdominal Pain, Diarrhea, Constipation, Melena, Hematochezia, Other Genitourinary: negative: Dysuria, Frequency, Incontinence, Hematuria, Retention , Other Musculoskeletal: negative: Neck Pain, Shoulder Pain, Arm Pain, Back Pain, Hand Pain, Leg Pain, Foot Pain, Other Skin: negative: Rash, Lesions, Oscar, Bruising, Other - Medications/Allergies Allergies/Adverse Reactions: Allergies Allergy/AdvReac Type Severity Reaction Status Date / Time ceftriaxone [From Rocephin] Allergy Verified 07/23/18 04:34 Medications: Current Medications Acetaminophen (Tylenol) 325 mg PO Q4H PRN PRN Reason: Headache/Fever/Mild Pain (1-3) Artificial Tears (Tears Naturale) 2 drop EA EYE PRN PRN PRN Reason: Dry Eyes Cyanocobalamin (Vitamin B-12) 1,000 mcg PO DAILY [facility] Last Admin: 07/24/18 08:48 Dose: 1,000 mcg Dextrose/Water (Dextrose 50%) 25 gm SLOW IVP PRN PRN PRN Reason: Hypoglycemia Famotidine (Pepcid) 20 mg PO BID [facility] Folic Acid (Folvite) 1 mg PO DAILY [facility] Last Admin: 07/24/18 08:48 Dose: 1 mg Glucagon (Glucagon) 1 mg IM PRN PRN PRN Reason: Hypoglycemia Hydralazine HCl (Apresoline) 10 mg SLOW IVP Q4H PRN PRN Reason: SBP > 180 and HR < 70 Dextrose/Water (D5w) 1,000 mls @ 0 mls/hr IV .Q0M PRN PRN Reason: Hypoglycemia Insulin Human Lispro (Humalog) 0 units SC .MODERATE SLIDING SC PRN PRN Reason: Moderate Correctional Scale Last Admin: 07/23/18 18:36 Dose: 4 unit Insulin Human Lispro (Humalog) 0 units SC .BEDTIME SLIDING SC PRN PRN Reason: Bedtime Correctional Scale Last Admin: 07/23/18 20:33 Dose: 2 unit Lactulose (Lactulose) 20 gm PO TID [facility] Last Admin: 07/24/18 08:48 Dose: 20 gm Mineral Oil/White Petrolatum (Eucerin Cream) 0 gm TOP BIDPRN PRN PRN Reason: Dry Skin Ondansetron HCl (Zofran Odt) 4 mg SL Q6H PRN PRN Reason: Nausea/Vomiting Ondansetron HCl (Zofran) 4 mg IVP Q6H PRN PRN Reason: Nausea/Vomiting Propranolol HCl (Inderal) 10 mg PO BID [facility] Last Admin: 07/24/18 08:49 Dose: Not Given Rifaximin (Xifaxan) 550 mg PO BID [facility] Last Admin: 07/24/18 08:48 Dose: 550 mg Sodium Chloride (Flush - Normal Saline) 10 ml IVF Q12HR [facility] Last Admin: 07/24/18 08:49 Dose: 10 ml Sodium Chloride (Flush - Normal Saline) 10 ml IVF PRN PRN PRN Reason: Saline Flush Sodium Chloride ([place] Nasal [place] 0.65%) 0 ml EA NARE QIDPRN PRN PRN Reason: Nasal Congestion
[2018-07-24] MEDS: Famotidine 20 MG TAB PO SCH ×2 (16:10→19:43)
[2018-07-24] MEDS: HumaLOG 300 UNITS/3 ML VIAL SC PRN ×2 (17:58→21:12)
--- NOTE | 2018-07-25 00:41 | PRG ---
DATE OF SERVICE: 07/24/2018 SUBJECTIVE: Mr. Poe's mental status has returned to normal today. He had bowel movements yesterd ay and last night, but he has had no bowel movement all day today. He has been taking the lactulose 20 grams 3 times a day without adequate response today. OBJECTIVE: VITAL SIGNS: Temperature 97.9, pulse 61, blood pressure 106/58. GENERAL: He is in no acute distress, awake and alert. LUNGS: Clear to auscultation bilaterally. HEART: Regular rate and rhythm. ABDOMEN: Soft, nontender, nondistended. Bowel sounds are present. EXTREMITIES: No lower extremity edema. LABORATORY DATA: Hemoglobin is 12.1 without any overt bleeding. Bilirubin 3.5, albumin 2.3, creatin ine 0.62. Ammonia 53. IMPRESSION: 1. Hepatic encephalopathy, clinically improved after lactulose enema and oral lactulose yesterday. He is not achieving adequate bowel movements with the current dosing of lactulose. We will increase this dose and give an extra dose tonight. 2. He has been started on Xifaxan; however, given the lack of insurance, he will unlikely to be able to continue this as an outpatient. 3. If his mental status continues to improve, he should be ready for discharge home tomorrow on high er dose lactulose. I will increase his dose to 30 grams 4 times daily with plenty of water. Again, I discussed with his how to titrate this dose down and ultimately ends up being too high the dos e or increasing if necessary. RECOMMENDATIONS: We will check alpha fetoprotein and ultrasound of the liver for hepatoma screening as I did not see that this has been done in the last 6 months.
[2018-07-25] MEDS: Folic Acid 1 MG TAB PO SCH (09:22)
[2018-07-25] MEDS: Rifaximin 550 MG TAB PO SCH ×2 (09:22→21:40)
[2018-07-25] MEDS: Propranolol 10 MG TAB PO SCH ×2 (09:22→21:41)
[2018-07-25] MEDS: Cyanocobalamin (Vitamin B-12) 1,000 MCG TAB PO SCH (09:22)
[2018-07-25] MEDS: Famotidine 20 MG TAB PO SCH ×2 (09:23→21:40)
--- NOTE | 2018-07-25 10:11 | PDOC.PN ---
- Subjective Encounter Start Date: 07/25/18 Encounter Start Time: 08:50 Patient seen and examined. No new complaints. No overnight events - Objective Resuscitation Status: Resuscitation Status FULL:Full Resuscitation MAR Reviewed: Yes Vital Signs & Weight: Vital Signs (12 hours) Temp Pulse Resp BP Pulse Ox 07/25/18 08:00 99 07/25/18 07:33 98.3 F 48 L 16 113/64 99 07/25/18 04:38 98.1 F 55 L 16 107/66 96 07/25/18 00:34 98.1 F 61 16 107/64 97 Weight Weight 197 lb I&O: 07/24/18 07/25/18 07/26/18 06:59 06:59 06:59 Intake Total 1560 1290 Balance 1560 1290 Result Diagrams: 07/24/18 04:12 07/24/18 04:12 Additional Labs: Accuchecks 07/25/18 07/24/18 07/24/18 04:42 20:12 16:47 POC Glucose 154 H 217 H 176 H 07/24/18 11:33 POC Glucose 240 H Radiology Reviewed by me: Yes (us abdomen) Phys Exam - Physical Examination Constitutional: NAD HEENT: PERRLA, moist MMs, sclera anicteric Neck: no JVD, supple Respiratory: no wheezing, no rales, no rhonchi Cardiovascular: RRR, no significant murmur, no rub Gastrointestinal: soft, non-tender, no distention, positive bowel sounds Musculoskeletal: no edema, pulses present Neurological: non-focal, normal sensation, moves all 4 limbs Psychiatric: normal affect, A&O x 3 Skin: no rash, normal turgor Dx/Plan (1) Hepatic encephalopathy Code(s): K72.90 - HEPATIC FAILURE, UNSPECIFIED WITHOUT COMA Status: Acute Comment: (2) Alcoholic cirrhosis of liver Code(s): K70.30 - ALCOHOLIC CIRRHOSIS OF LIVER WITHOUT ASCITES Status: Chronic (3) DM2 (diabetes mellitus, type 2) Status: Chronic Qualifiers: Comment: continue SSI, accuchecks. (4) Esophageal varices Code(s): I85.00 - ESOPHAGEAL VARICES WITHOUT BLEEDING Status: Chronic Comment: (5) Obesity (BMI 30-39.9) Code(s): E66.9 - OBESITY, UNSPECIFIED Status: Chronic (6) Portal hypertension Code(s): K76.6 - PORTAL HYPERTENSION Status: Chronic (7) Thrombocytopenia Code(s): D69.6 - THROMBOCYTOPENIA, UNSPECIFIED Status: Chronic - Plan cont current plan of care * medication reviewed as below * symptomatic treatment * continue lactulose * stable for discharge. Review of Systems - Review of Systems ENT: negative: Ear Pain, Ear Discharge, Nose Pain, Nose Discharge, Nose Congestion, Mouth Pain, Mouth Swelling, Throat Pain, Throat Swelling, Other Respiratory: negative: Cough, Dry, Shortness of Breath, Hemoptysis, SOB with Excertion, Pleuritic Pain, Sputum, Wheezing Cardiovascular: negative: chest pain, palpitations, orthopnea, paroxysmal nocturnal dyspnea, edema, light headedness, other Gastrointestinal: negative: Nausea, Vomiting, Abdominal Pain, Diarrhea, Constipation, Melena, Hematochezia, Other Genitourinary: negative: Dysuria, Frequency, Incontinence, Hematuria, Retention , Other Musculoskeletal: negative: Neck Pain, Shoulder Pain, Arm Pain, Back Pain, Hand Pain, Leg Pain, Foot Pain, Other - Medications/Allergies Allergies/Adverse Reactions: Allergies Allergy/AdvReac Type Severity Reaction Status Date / Time ceftriaxone [From Rocephin] Allergy Verified 07/23/18 04:34 Medications: Current Medications Acetaminophen (Tylenol) 325 mg PO Q4H PRN PRN Reason: Headache/Fever/Mild Pain (1-3) Artificial Tears (Tears Naturale) 2 drop EA EYE PRN PRN PRN Reason: Dry Eyes Cyanocobalamin (Vitamin B-12) 1,[address] [facility] Last Admin: 07/25/18 09:22 Dose: 1,000 mcg Dextrose/Water (Dextrose 50%) 25 gm SLOW IVP PRN PRN PRN Reason: Hypoglycemia Famotidine (Pepcid) [address] [facility] Last Admin: 07/25/18 09:23 Dose: 20 mg Folic Acid (Folvite) [address] [facility] Last Admin: 07/25/18 09:22 Dose: 1 mg Glucagon (Glucagon) 1 mg IM PRN PRN PRN Reason: Hypoglycemia Hydralazine HCl (Apresoline) 10 mg SLOW IVP Q4H PRN PRN Reason: SBP > 180 and HR < 70 Dextrose/Water (D5w) 1,000 mls @ 0 mls/hr IV .Q0M PRN PRN Reason: Hypoglycemia Insulin Human Lispro (Humalog) 0 units SC .MODERATE SLIDING SC PRN PRN Reason: Moderate Correctional Scale Last Admin: 07/24/18 17:58 Dose: 2 unit Insulin Human Lispro (Humalog) 0 units SC .BEDTIME SLIDING SC PRN PRN Reason: Bedtime Correctional Scale Last Admin: 07/24/18 21:12 Dose: 2 unit Lactulose (Lactulose) [address] [facility] Last Admin: 07/25/18 09:20 Dose: 30 gm Mineral Oil/White Petrolatum (Eucerin Cream) 0 gm TOP BIDPRN PRN PRN Reason: Dry Skin Ondansetron HCl (Zofran Odt) 4 mg SL Q6H PRN PRN Reason: Nausea/Vomiting Ondansetron HCl (Zofran) 4 mg IVP Q6H PRN PRN Reason: Nausea/Vomiting Propranolol HCl (Inderal) [address] [facility] Last Admin: 07/25/18 09:22 Dose: 10 mg Rifaximin (Xifaxan) [address] [facility] Last Admin: 07/25/18 09:22 Dose: 550 mg Sodium Chloride (Flush - Normal Saline) [address] [facility] Last Admin: 07/25/18 09:23 Dose: 10 ml Sodium Chloride (Flush - Normal Saline) 10 ml IVF PRN PRN PRN Reason: Saline Flush Sodium Chloride ([place] Nasal [place] 0.65%) 0 ml EA NARE QIDPRN PRN PRN Reason: Nasal Congestion
--- NOTE | 2018-07-25 10:58 | DIS ---
DATE OF ADMISSION: 07/23/2018 DATE OF DISCHARGE: 07/25/2018 [facility] DISCHARGE DISPOSITION: Home. PRIMARY DISCHARGE DIAGNOSIS: Acute hepatic encephalopathy, improved. SECONDARY DISCHARGE DIAGNOSES: Chronic thrombocytopenia, chronic portal hypertension, obesity with B HI 31, esophageal varices, diabetes type 2, alcoholic cirrhosis of liver. PRIMARY PROCEDURE/OPERATION: None. RADIOLOGICAL INVESTIGATION: CT brain was normal. Abdominal ultrasound result is pending. SIGNIFICANT LABORATORY DATA: WBC 4.8, hemoglobin 12.1, platelets 60, INR 1.9. Ammonia level 53. So dium 137, potassium 3.7, BUN 9, creatinine 0.62, calcium 8.0, bilirubin 3.5. Liver enzymes normal. Albumin 2.3. Electrolytes normal. Urinalysis unremarkable. Urine drug screen and serum drug screen negative. DISCHARGE MEDICATIONS: Lactulose 20 grams t.i.d., Lasix 20 mg daily, Aldactone 25 mg daily, Humalog 5 units subcu t.i.d., Pepcid 20 mg p.o. b.i.d., vitamin B12 of 1000 mcg p.o. daily, folic acid 1 mg p .o. daily, Inderal 10 mg p.o. b.i.d. CONTRAINDICATIONS: None. CODE STATUS: FULL CODE. INPATIENT CONSULTANTS: Dr. Ham Barbosa was following while in hospital. TEST RESULTS PENDING ON DISCHARGE: Alpha fetoprotein level. ALLERGIES: ROCEPHIN. DISCHARGE PLAN: Post hospital, the patient will be discharged to home and subsequently he will follo w up with primary care physician. HOSPITAL COURSE: A 53-year-old male who was admitted for hepatic encephalopathy. His ammonia level on admission was 131. He was completely confused. He was somnolent. He required lactulose and anem ia with that the patient had good bowel movement and patient's mental status improved. We continued with lactulose. This patient keeps getting hepatic encephalopathy because he is not getting appropri ate dose of lactulose to maintain his bowel movement 2-3 which was discussed during this admission. We also gave him rifaximin. This patient does not have any insurance and he cannot afford rifaximin as an outpatient basis. Prophylactically hepatic Doppler and alpha fetoprotein was ordered during is admission. At this point, his ammonia has improved. His encephalopathy resolved. He is overall stable. On adm ission, he had transient amount of blood in vomitus, but he did not require any procedure and his hem oglobin remained stable. We discontinued ferrous sulfate, because that is known to cause constipatio n. We also discontinued Protonix and changed to Pepcid. Rest of medication was continued as per pre vious. If Gastroenterologists are okay, then consider discharging him home later on today. The patient is seen and examined at bedside today. Please see my progress note from today for furthe r details.
--- NOTE | 2018-07-25 11:05 | ULT ---
HEPATIC SONOGRAM: History: Cirrhosis, hepatoma screening. FINDINGS: Gallbladder is incompletely distended with wall thickness upper limits of normal and small amount of pericholecystic fluid. No focal tenderness over the gallbladder fossa. Common duct is 0.3 cm. The liver is heterogeneous without focal mass. No free fluid visible. Spleen is 14.0 cm in length without focal abnormalities. Good color and spectral doppler flow within the hepatic and splenic arteries. No significant flow was able to be detected in the intrahepatic main portal vein or right portal vein. A very small amount o f flow seen within the left portal vein. Good flow in the splenic vein and through the TIPS. Hepatic venous flow is towards to the IVC. Impression: No evidence of hepatic mass. TIPS is patent, but there is markedly reduced flow within the intrahepatic portal system. POS: MARY
--- NOTE | 2018-07-25 17:59 | PRG ---
DATE OF SERVICE: 07/25/2018 SUBJECTIVE: Mr. Poe had no bowel movement yesterday despite the extra doses of lactulose last nig ht and no bowel movement today so far. He received this morning's dose of lactulose, but the new dos e was held because he is n.p.o. for the ultrasound. OBJECTIVE: VITAL SIGNS: Temperature 98.1, pulse 53, blood pressure 102/58. GENERAL: He is in no acute distress, alert and awake. LUNGS: Clear to auscultation bilaterally. HEART: Regular rate and rhythm. ABDOMEN: Soft, nontender, nondistended. Bowel sounds are present. EXTREMITIES: No lower extremity edema. IMPRESSION: 1. Hepatic encephalopathy. This is improved; however, he has gone the last 2 days with no bowel mov ement. His only bowel movement that he has had is with the lactulose enema that he was given. He mi ssed his second dose of lactulose today. At this point, we will give the noon dose now and then the 5 o'clock dose in a couple of hours and we will continue the current dosing. If this remains inadequ ate, then increase to 60 mL or 40 grams 4 times a day. 2. Cirrhosis, decompensated. 3. Hepatoma screening. Alpha fetoprotein has been drawn and is pending. Ultrasound today showed no focal liver mass. There was appropriate blood flow through the tips. RECOMMENDATIONS: 1. Continue higher dose lactulose. 2. Increase the dose further if he continues to fail to achieve a bowel movement 2-3 times per day w ith the current dosing. 3. Given that he has had no bowel movement in the last 2 days, I would hold discharge until we confi rm that he is achieving bowel movement with the lactulose. 4. He was encouraged to drink water as this is an osmotic laxative and will require water to help th is medicine work.
[2018-07-26 08:11] LABS: Anion Gap 6 mmol/L (10-20); BUN (Urea Nitrogen) 5 mg/dL (8.4-25.7); Calc. Creatinine Clearance 160 mL/min (70-130); Calcium 8.1 mg/dL (7.8-10.44); Carbon Dioxide 23 mmol/L (22-29); Chloride 102 mmol/L (98-107); Estimated GFR-MDRD Greater than 90; Glucose 221 mg/dL (70-105); Potassium 3.9 mmol/L (3.5-5.1); Sodium 127 mmol/L (136-145)
[2018-07-26] MEDS: Rifaximin 550 MG TAB PO SCH ×2 (09:34→20:39)
[2018-07-26] MEDS: Cyanocobalamin (Vitamin B-12) 1,000 MCG TAB PO SCH (09:34)
[2018-07-26] MEDS: Propranolol 10 MG TAB PO SCH ×2 (09:34→20:39)
[2018-07-26] MEDS: Famotidine 20 MG TAB PO SCH ×2 (09:34→20:39)
[2018-07-26] MEDS: Folic Acid 1 MG TAB PO SCH (09:34)
--- NOTE | 2018-07-26 10:07 | PDOC.PN ---
- Subjective Encounter Start Date: 07/26/18 Encounter Start Time: 08:30 Patient seen and examined. No new complaints. No overnight events pt reports that he had 3 BM, but his ammonia again high - Objective Resuscitation Status: Resuscitation Status FULL:Full Resuscitation MAR Reviewed: Yes Vital Signs & Weight: Vital Signs (12 hours) Temp Pulse Resp BP Pulse Ox 07/26/18 07:42 97.6 F 51 L 18 116/68 99 Weight Weight 197 lb I&O: 07/25/18 07/26/18 07/27/18 06:59 06:59 06:59 Intake Total 1290 600 Balance 1290 600 Result Diagrams: 07/24/18 04:12 07/26/18 07:37 Additional Labs: Accuchecks 07/26/18 07/25/18 07/25/18 04:45 20:26 17:01 POC Glucose 112 H 164 H 200 H 07/25/18 11:39 POC Glucose 172 H Phys Exam - Physical Examination Constitutional: NAD HEENT: PERRLA, moist MMs, sclera anicteric Neck: no JVD, supple Respiratory: no wheezing, no rales, no rhonchi Cardiovascular: RRR, no significant murmur, no rub Gastrointestinal: soft, non-tender, no distention, positive bowel sounds Musculoskeletal: no edema, pulses present Neurological: non-focal, normal sensation, moves all 4 limbs Lymphatic: no nodes Psychiatric: normal affect, A&O x 3 Skin: no rash, normal turgor Dx/Plan (1) Hepatic encephalopathy Code(s): K72.90 - HEPATIC FAILURE, UNSPECIFIED WITHOUT COMA Status: Acute Comment: (2) Alcoholic cirrhosis of liver Code(s): K70.30 - ALCOHOLIC CIRRHOSIS OF LIVER WITHOUT ASCITES Status: Chronic (3) DM2 (diabetes mellitus, type 2) Status: Chronic Qualifiers: Comment: continue SSI, accuchecks. (4) Esophageal varices Code(s): I85.00 - ESOPHAGEAL VARICES WITHOUT BLEEDING Status: Chronic Comment: (5) Obesity (BMI 30-39.9) Code(s): E66.9 - OBESITY, UNSPECIFIED Status: Chronic (6) Portal hypertension Code(s): K76.6 - PORTAL HYPERTENSION Status: Chronic (7) Thrombocytopenia Code(s): D69.6 - THROMBOCYTOPENIA, UNSPECIFIED Status: Chronic - Plan cont current plan of care * continue more lactulose and rifaximin * repeat ammonia level tomorrow * medication reviewed as below * symptomatic treatment. * high risk for readmission Review of Systems - Review of Systems Eyes: negative: Pain, Vision Change, Conjunctivae Inflammation, Eyelid Inflammation, Redness, Other ENT: negative: Ear Pain, Ear Discharge, Nose Pain, Nose Discharge, Nose Congestion, Mouth Pain, Mouth Swelling, Throat Pain, Throat Swelling, Other Cardiovascular: negative: chest pain, palpitations, orthopnea, paroxysmal nocturnal dyspnea, edema, light headedness, other Gastrointestinal: negative: Nausea, Vomiting, Abdominal Pain, Diarrhea, Constipation, Melena, Hematochezia, Other Genitourinary: negative: Dysuria, Frequency, Incontinence, Hematuria, Retention , Other Musculoskeletal: negative: Neck Pain, Shoulder Pain, Arm Pain, Back Pain, Hand Pain, Leg Pain, Foot Pain, Other Skin: negative: Rash, Lesions, Oscar, Bruising, Other - Medications/Allergies Allergies/Adverse Reactions: Allergies Allergy/AdvReac Type Severity Reaction Status Date / Time ceftriaxone [From Rocephin] Allergy Verified 07/23/18 04:34 Medications: Current Medications Acetaminophen (Tylenol) 325 mg PO Q4H PRN PRN Reason: Headache/Fever/Mild Pain (1-3) Artificial Tears (Tears Naturale) 2 drop EA EYE PRN PRN PRN Reason: Dry Eyes Cyanocobalamin (Vitamin B-12) 1,000 mcg PO DAILY [facility] Last Admin: 07/26/18 09:34 Dose: 1,000 mcg Dextrose/Water (Dextrose 50%) 25 gm SLOW IVP PRN PRN PRN Reason: Hypoglycemia Famotidine (Pepcid) 20 mg PO BID [facility] Last Admin: 07/26/18 09:34 Dose: 20 mg Folic Acid (Folvite) 1 mg PO DAILY [facility] Last Admin: 07/26/18 09:34 Dose: 1 mg Glucagon (Glucagon) 1 mg IM PRN PRN PRN Reason: Hypoglycemia Hydralazine HCl (Apresoline) 10 mg SLOW IVP Q4H PRN PRN Reason: SBP > 180 and HR < 70 Dextrose/Water (D5w) 1,000 mls @ 0 mls/hr IV .Q0M PRN PRN Reason: Hypoglycemia Insulin Human Lispro (Humalog) 0 units SC .MODERATE SLIDING SC PRN PRN Reason: Moderate Correctional Scale Last Admin: 07/24/18 17:58 Dose: 2 unit Insulin Human Lispro (Humalog) 0 units SC .BEDTIME SLIDING SC PRN PRN Reason: Bedtime Correctional Scale Last Admin: 07/24/18 21:12 Dose: 2 unit Lactulose (Lactulose) 30 gm PO QID [facility] Last Admin: 07/26/18 09:33 Dose: 30 gm Mineral Oil/White Petrolatum (Eucerin Cream) 0 gm TOP BIDPRN PRN PRN Reason: Dry Skin Ondansetron HCl (Zofran Odt) 4 mg SL Q6H PRN PRN Reason: Nausea/Vomiting Ondansetron HCl (Zofran) 4 mg IVP Q6H PRN PRN Reason: Nausea/Vomiting Propranolol HCl (Inderal) 10 mg PO BID [facility] Last Admin: 07/26/18 09:34 Dose: Not Given Rifaximin (Xifaxan) 550 mg PO BID [facility] Last Admin: 07/26/18 09:34 Dose: 550 mg Sodium Chloride (Flush - Normal Saline) 10 ml IVF Q12HR [facility] Last Admin: 07/26/18 09:35 Dose: 10 ml Sodium Chloride (Flush - Normal Saline) 10 ml IVF PRN PRN PRN Reason: Saline Flush Sodium Chloride ([place] Nasal [place] 0.65%) 0 ml EA NARE QIDPRN PRN PRN Reason: Nasal Congestion
[2018-07-26] MEDS: HumaLOG 300 UNITS/3 ML VIAL SC PRN (13:08)
--- NOTE | 2018-07-26 18:36 | PRG ---
DATE OF SERVICE: 07/26/2018 HISTORY OF PRESENT ILLNESS: Mr. Poe is feeling well without any acute complaints. He had 3 bowel movements last night and 2 today so far. He has no abdominal pain or nausea or vomiting. PHYSICAL EXAMINATION: VITAL SIGNS: Temperature 97.6, pulse 51, blood pressure 116/68. GENERAL: He is in no acute distress. He is awake and alert. LUNGS: Clear to auscultation bilaterally. HEART: Regular rate and rhythm. ABDOMEN: Soft, nontender, nondistended. Bowel sounds are present. EXTREMITIES: No lower extremity edema. IMPRESSION: 1. Hepatic encephalopathy. He is clinically significantly improved with the higher dose of lactulos e. He is on Xifaxan; however, he is not expected to be able to continue this as an outpatient. His ammonia was noted to be a little bit higher today at 103. 2. Cirrhosis, decompensated. RECOMMENDATIONS: 1. Continue lactulose at current dose is 30 grams, which is 45 mL 4 times daily. We could alternati vely adjust this to 60 grams 3 times a day if we do not achieve adequate output with the current dosi ng. For now, it appears that he is having good bowel movements. 2. I would anticipate discharge home tomorrow.
[2018-07-27 08:24] VITALS: BP 151/75; TEMP 97.9
[2018-07-27] MEDS: Propranolol 10 MG TAB PO SCH (08:38)
[2018-07-27] MEDS: Folic Acid 1 MG TAB PO SCH (08:38)
[2018-07-27] MEDS: Rifaximin 550 MG TAB PO SCH (08:38)
[2018-07-27] MEDS: Cyanocobalamin (Vitamin B-12) 1,000 MCG TAB PO SCH (08:38)
[2018-07-27] MEDS: Famotidine 20 MG TAB PO SCH (08:38)
--- NOTE | 2018-07-27 08:45 | PDOC.PN ---
- Subjective Encounter Start Date: 07/27/18 Encounter Start Time: 08:10 Patient seen and examined. No new complaints. No overnight events - Objective Resuscitation Status: Resuscitation Status FULL:Full Resuscitation MAR Reviewed: Yes Vital Signs & Weight: Vital Signs (12 hours) Temp Pulse Resp BP Pulse Ox 07/27/18 08:00 97.9 F 51 L 18 151/75 H 100 Weight Weight 197 lb I&O: 07/26/18 07/27/18 07/28/18 06:59 06:59 06:59 Intake Total 600 480 Balance 600 480 Result Diagrams: 07/24/18 04:12 07/26/18 07:37 Additional Labs: Accuchecks 07/27/18 07/26/18 07/26/18 04:46 20:47 16:29 POC Glucose 143 H 192 H 183 H 07/26/18 11:37 POC Glucose 219 H Phys Exam - Physical Examination Constitutional: NAD HEENT: PERRLA, moist MMs, sclera anicteric Neck: no JVD, supple Respiratory: no wheezing, no rales, no rhonchi Cardiovascular: RRR, no significant murmur, no rub Gastrointestinal: soft, non-tender, no distention, positive bowel sounds Musculoskeletal: no edema, pulses present Neurological: non-focal, normal sensation, moves all 4 limbs Psychiatric: normal affect, A&O x 3 Skin: no rash, normal turgor Dx/Plan (1) Hepatic encephalopathy Code(s): K72.90 - HEPATIC FAILURE, UNSPECIFIED WITHOUT COMA Status: Acute Comment: (2) Alcoholic cirrhosis of liver Code(s): K70.30 - ALCOHOLIC CIRRHOSIS OF LIVER WITHOUT ASCITES Status: Chronic (3) DM2 (diabetes mellitus, type 2) Status: Chronic Qualifiers: Comment: continue SSI, accuchecks. (4) Esophageal varices Code(s): I85.00 - ESOPHAGEAL VARICES WITHOUT BLEEDING Status: Chronic Comment: (5) Obesity (BMI 30-39.9) Code(s): E66.9 - OBESITY, UNSPECIFIED Status: Chronic (6) Portal hypertension Code(s): K76.6 - PORTAL HYPERTENSION Status: Chronic (7) Thrombocytopenia Code(s): D69.6 - THROMBOCYTOPENIA, UNSPECIFIED Status: Chronic - Plan cont current plan of care * ammonia still high but pt is now encouraged to take more lactulose to titrate his BM, and he wants to go home today * medication reviewed as below * symptomatic treatment * see my discharge blanca . Review of Systems - Review of Systems ENT: negative: Ear Pain, Ear Discharge, Nose Pain, Nose Discharge, Nose Congestion, Mouth Pain, Mouth Swelling, Throat Pain, Throat Swelling, Other Respiratory: negative: Cough, Dry, Shortness of Breath, Hemoptysis, SOB with Excertion, Pleuritic Pain, Sputum, Wheezing Cardiovascular: negative: chest pain, palpitations, orthopnea, paroxysmal nocturnal dyspnea, edema, light headedness, other Gastrointestinal: negative: Nausea, Vomiting, Abdominal Pain, Diarrhea, Constipation, Melena, Hematochezia, Other Genitourinary: negative: Dysuria, Frequency, Incontinence, Hematuria, Retention , Other Musculoskeletal: negative: Neck Pain, Shoulder Pain, Arm Pain, Back Pain, Hand Pain, Leg Pain, Foot Pain, Other Skin: negative: Rash, Lesions, Oscar, Bruising, Other - Medications/Allergies Allergies/Adverse Reactions: Allergies Allergy/AdvReac Type Severity Reaction Status Date / Time ceftriaxone [From Rocephin] Allergy Verified 07/23/18 04:34 Medications: Current Medications Acetaminophen (Tylenol) 325 mg PO Q4H PRN PRN Reason: Headache/Fever/Mild Pain (1-3) Artificial Tears (Tears Naturale) 2 drop EA EYE PRN PRN PRN Reason: Dry Eyes Cyanocobalamin (Vitamin B-12) 1,000 mcg PO DAILY [facility] Last Admin: 07/27/18 08:38 Dose: 1,000 mcg Dextrose/Water (Dextrose 50%) 25 gm SLOW IVP PRN PRN PRN Reason: Hypoglycemia Famotidine (Pepcid) 20 mg PO BID [facility] Last Admin: 07/27/18 08:38 Dose: 20 mg Folic Acid (Folvite) 1 mg PO DAILY [facility] Last Admin: 07/27/18 08:38 Dose: 1 mg Glucagon (Glucagon) 1 mg IM PRN PRN PRN Reason: Hypoglycemia Hydralazine HCl (Apresoline) 10 mg SLOW IVP Q4H PRN PRN Reason: SBP > 180 and HR < 70 Dextrose/Water (D5w) 1,000 mls @ 0 mls/hr IV .Q0M PRN PRN Reason: Hypoglycemia Insulin Human Lispro (Humalog) 0 units SC .MODERATE SLIDING SC PRN PRN Reason: Moderate Correctional Scale Last Admin: 07/26/18 13:08 Dose: 4 unit Insulin Human Lispro (Humalog) 0 units SC .BEDTIME SLIDING SC PRN PRN Reason: Bedtime Correctional Scale Last Admin: 07/24/18 21:12 Dose: 2 unit Lactulose (Lactulose) 30 gm PO QID [facility] Last Admin: 07/27/18 08:38 Dose: 30 gm Mineral Oil/White Petrolatum (Eucerin Cream) 0 gm TOP BIDPRN PRN PRN Reason: Dry Skin Ondansetron HCl (Zofran Odt) 4 mg SL Q6H PRN PRN Reason: Nausea/Vomiting Ondansetron HCl (Zofran) 4 mg IVP Q6H PRN PRN Reason: Nausea/Vomiting Propranolol HCl (Inderal) 10 mg PO BID [facility] Last Admin: 07/27/18 08:38 Dose: 10 mg Rifaximin (Xifaxan) 550 mg PO BID [facility] Last Admin: 07/27/18 08:38 Dose: 550 mg Sodium Chloride (Flush - Normal Saline) 10 ml IVF Q12HR [facility] Last Admin: 07/27/18 08:39 Dose: Not Given Sodium Chloride (Flush - Normal Saline) 10 ml IVF PRN PRN PRN Reason: Saline Flush Sodium Chloride ([place] Nasal [place] 0.65%) 0 ml EA NARE QIDPRN PRN PRN Reason: Nasal Congestion
--- NOTE | 2018-07-27 13:44 | ADD-DIS ---
Please see my discharge summary dictated on 07/25/2018. After that discharge, the patient was kept i n the hospital. We did ultrasound Doppler, which was essentially negative for any liver mass, but th ere was questionable portal vein thrombosis. This patient does not have any gross ascites, and we se nt alpha-fetoprotein level, which is pending and today resulted as 2.5. We rechecked his ammonia lev el, it was elevated to 103, and subsequently, he was given increased amount of lactulose and today am monia level is 77. Even though his ammonia level is high, patient is completely well oriented and no w he is encouraged to take more lactulose to have at least 2-3 bowel movements daily basis. Necessar y patient education about diet as well as lactulose and medication were given. Patient wants to go h ome today. The patient is seen and examined at bedside today. Please see my progress note from today for furthe r detail.
== END 2018-07-27 10:29 | disposition home or self-care (01) | DRG 442 ==
LOC: ERS 01:42 → T4-A 04:04
PROVIDERS: ADMIT Internal Medicine; ATTEND Internal Medicine
DX: K72.90 Hepatic failure, unspecified without coma (principal); I85.10 Secondary esophageal varices without bleeding; K76.6 Portal hypertension; E72.20 Disorder of urea cycle metabolism, unspecified; K92.2 Gastrointestinal hemorrhage, unspecified; D68.9 Coagulation defect, unspecified; K70.30 Alcoholic cirrhosis of liver without ascites; E11.9 Type 2 diabetes mellitus without complications; E66.9 Obesity, unspecified; D69.6 Thrombocytopenia, unspecified; Z91.81 History of falling; I10 Essential (primary) hypertension; D64.9 Anemia, unspecified; F10.10 Alcohol abuse, uncomplicated; D73.1 Hypersplenism; E80.6 Other disorders of bilirubin metabolism; I86.4 Gastric varices; Z68.31 Body mass index [BMI] 31.0-31.9, adult
CPT/HCPCS: 36415; 36416; 51701; 70450; 76705; 80048; 80053; 80306; 80307; 81003; 81015; 82105; 82140; 83690; 83735; 84100; 85025; 85610; 85730; 90471; 90670; 93005; 96374; G0009; J1956; J2405; S0028

== ENCOUNTER 2019-04-08 07:23 | Outpatient (CLI) | payer OTHER ==
--- NOTE | 2019-04-08 08:26 | ULT ---
Ultrasound hepatic Doppler duplex: DATE: 04/08/2019 HISTORY: 53-year-old male with cirrhosis. TECHNIQUE: Grayscale images of liver and spleen. Color flow and spectral analysis of major vessels associated with the liver. FINDINGS: Liver: Small. Diffusely coarse echotexture. No evidence of moderate or large volume of surrounding fr ee fluid. Gallbladder: Partially contracted. Poorly visualized. Common duct: 5 mm. Spleen: 14 x 5.5 x 5.5 cm. Lobular hilum but concavity maintained. Hepatic artery: Normal pulsatile waveform identified. Hepatic veins: Patency demonstrated, with appropriate pulse Doppler waveforms, but difficult to deter mine directionality for technical reasons. TIPS not identified and not evaluated by drug clerk. Main portal vein: Appropriate pulse Doppler waveform and hepatopetal flow. Left and right portal veins not identified. IMPRESSION: 1. Technically limited study. 2. Cirrhotic liver.
== END 2019-04-08 07:24 | disposition home or self-care (01) ==
LOC: BICULT 07:23
PROVIDERS: ATTEND Internal Medicine Gastroenterology
DX: K74.60 Unspecified cirrhosis of liver (principal); I85.00 Esophageal varices without bleeding
CPT/HCPCS: 76705

== ENCOUNTER 2019-11-11 09:11 | Outpatient (CLI) | payer OTHER ==
--- NOTE | 2019-11-11 10:29 | ULT ---
Hepatic ultrasound with duplex evaluation INDICATION: History of cirrhosis TECHNIQUE: Grayscale, color Doppler and spectral Doppler images were obtained of the liver, gallbladd er, common bile duct, pancreas, right kidney and spleen. COMPARISON: Prior hepatic ultrasound with duplex evaluation dated April 08, 2019 FINDINGS: Liver: There is a cirrhotic morphology of the liver. No focal hepatic lesion is evident. Hepatic vasculature: Left hepatic vein: Appropriate flow. Middle hepatic vein: Appropriate flow. Right hepatic vein: Appropriate flow. Hepatic artery: Hepatopedal flow. Main portal vein: Hepatopedal flow is present within the main portal vein as well as within the parti ally visualized stent present within the proximal aspect of the main portal vein. Splenic artery: Appropriate flow. Splenic vein: Hepatopedal flow. Aorta: Appropriate flow. IVC: Appropriate flow. Gallbladder: Not well seen Common bile duct: Not well seen Pancreas: Not well seen Right kidney: Visualized right kidney demonstrated no focal renal lesion or hydronephrosis Spleen: The spleen measured 14.8cm in length. IMPRESSION: 1. Cirrhosis of the liver. 2. Appropriate hepatopedal flow. Appropriate hepatopedal flow within visualized portions of the main portal vein stent.
== END 2019-11-11 09:12 | disposition home or self-care (01) ==
LOC: BICULT 09:11
PROVIDERS: ATTEND Internal Medicine Gastroenterology
DX: K70.30 Alcoholic cirrhosis of liver without ascites (principal); K72.90 Hepatic failure, unspecified without coma; R18.8 Other ascites; I86.4 Gastric varices; R60.0 Localized edema
CPT/HCPCS: 76705

== ENCOUNTER 2020-07-03 08:32 | Emergency (ER) | payer MEDICAID ==
[2020-07-03] MEDS ORDERED: Morphine 4 MG/ML VIAL ONE (08:44)
[2020-07-03] MEDS ORDERED: Ondansetron ODT 4 MG TAB ONE (08:45)
--- NOTE | 2020-07-03 09:14 | RAD ---
RADIOGRAPH CHEST AND LEFT RIBS 4 VIEWS: 07/03/2020 HISTORY: 55-year-old male with left rib pain FINDINGS: No consolidation or pulmonary edema. No pneumothorax or cardiomegaly. Bilateral lateral costophrenic angles are sharp. No grossly displaced acute fracture identified. Mild periosteal elevation at the distal, lateral aspect of the left ninth rib. IMPRESSION: 1. Apparent periosteal elevation of distal aspect of left ninth rib may represent callus of a healing subacute rib fracture. 2. No acute cardiopulmonary findings.
== END 2020-07-03 09:27 | disposition home or self-care (01) ==
LOC: ERS 08:32
DX: S22.32XA Fracture of one rib, left side, initial encounter for closed fracture (principal); I10 Essential (primary) hypertension; E11.9 Type 2 diabetes mellitus without complications; K74.60 Unspecified cirrhosis of liver; Z79.84 Long term (current) use of oral hypoglycemic drugs; W55.22XA Struck by cow, initial encounter
CPT/HCPCS: 96372; J2270; Q0162

== ENCOUNTER 2021-02-10 07:12 | Outpatient (CLI) | payer OTHER | END 2021-02-10 07:13 | disposition home or self-care (01) | LOC: BICULT 07:12 | PROVIDERS: ATTEND Physician Assistant Medical | DX: K72.90 Hepatic failure, unspecified without coma (principal); K70.30 Alcoholic cirrhosis of liver without ascites; K76.6 Portal hypertension | CPT/HCPCS: 76705 ==

== ENCOUNTER 2021-08-26 02:02 | Inpatient (IN) | payer SELFPAY ==
[2021-08-26] MEDS ORDERED: Ondansetron PF 4 MG/2 ML Vial ONE (02:30)
[2021-08-26 02:50] LABS: Hemoglobin 15.9 g/dL (14.0-18.0); Mean Corpuscular HGB CONC 35.7 g/dL (32.0-36.0); Mean Corpuscular Hemoglobin 34.6 pg (27.0-31.0); Mean Corpuscular Volume 96.9 fL (78.0-98.0); RBC Distribution Width 13.4 % (11.5-14.5); Red Blood Cell (RBC) Count 4.59 mill/uL (4.70-6.10); White Blood Cell (WBC) Count 4.4 thou/uL (4.8-10.8)
[2021-08-26 02:56] LABS: INR-International Normal Ratio 1.4; PTT 37.9 sec (22.9-36.1); Prothrombin Time 17.2 sec (12.0-14.7)
[2021-08-26 03:01] LABS: #Lymphocytes 0.9 thou/uL (1.20-3.40); #Monocytes 0.3 thou/uL (0.11-0.59); #Neutrophils 3.2 thou/uL (1.40-6.50); %Basophils 0.5 % (0.0-1.0); %Eosinophils 0.7 % (0.0-10.0); %Lymphocytes 20.8 % (21.0-51.0); %Monocytes 6.5 % (0.0-10.0); %Neutrophils 71.6 % (42.0-75.0); Mean Platelet Volume 9.9 fL (7.4-10.4); Platelet Count 50 thou/uL (130-400); Platelet Morphology Comment Appears Decreased
[2021-08-26 03:14] LABS: ALT (SGPT) 21 U/L (8-55); AST (SGOT) 24 U/L (5-34); Alkaline Phosphatase 185 U/L (40-110); Anion Gap 16 mmol/L (10-20); BUN (Urea Nitrogen) 9 mg/dL (8.4-25.7); Bilirubin, Total 2.7 mg/dL (0.2-1.2); Calc. Creatinine Clearance 0 mL/min (70-130); Calcium 9.4 mg/dL (7.8-10.44); Carbon Dioxide 17 mmol/L (22-29); Chloride 107 mmol/L (98-107); Globulin 3.6 g/dL (2.4-3.5); Glucose 242 mg/dL (70-105); Magnesium 1.5 mg/dL (1.6-2.6); Potassium 4.1 mmol/L (3.5-5.1); Protein, Total 6.6 g/dL (6.0-8.3); Sodium 136 mmol/L (136-145)
[2021-08-26 06:52] LABS: SARS-CoV-2 NAA Rapid Test Not Detected (NotDetected)
[2021-08-26 07:29] VITALS: BMI 39.2
[2021-08-26] MEDS ORDERED: Ondansetron PF 4 MG/2 ML Vial IVP PRN (09:29)
[2021-08-26] MEDS ORDERED: hydrALAZINE 20 MG/ML VIAL SLOW IVP PRN (09:29)
[2021-08-26] MEDS ORDERED: Acetaminophen 325 MG TAB PO PRN (09:29)
[2021-08-26] MEDS ORDERED: Ondansetron ODT 4 MG TAB PO PRN (09:29)
[2021-08-26] MEDS ORDERED: Dextrose 5% in Water 1,000 ML IV PRN (09:34)
[2021-08-26] MEDS ORDERED: Dextrose 50% Abboject 50 ML SYRINGE SLOW IVP PRN (09:34)
[2021-08-26] MEDS ORDERED: Octreotide Acetate 1,250 MCG in Sodium Chloride 0.9% 250 ML 250 ML IVPB SCH (09:45)
[2021-08-26] MEDS: Lactated Ringer's 1,000 ML IV SCH (11:07)
[2021-08-26] MEDS ORDERED: PROPOFOL 200 MG/20 ML VIAL ONE (13:05)
[2021-08-26] MEDS ORDERED: Succinylcholine 200 MG/10 ml SYRINGE FS ONE (13:05)
[2021-08-26] MEDS ORDERED: Phenylephrine 10 MG/ML VIAL ONE (13:05)
[2021-08-26] MEDS ORDERED: FLU VACC QS2021-22(6MOS UP)/PF 60 MCG/0.5 ML SYRINGE IM ONE (14:00)
[2021-08-26] MEDS ORDERED: Magnesium 2 GM/50 ML 2 GM in Premix Bag 1 BAG IVPB SCH (17:00)
[2021-08-26] MEDS: HumaLOG 300 UNITS/3 ML VIAL SC PRN ×2 (17:28→20:16)
[2021-08-26] MEDS: Pantoprazole 40 MG VIAL IVP SCH (20:17)
[2021-08-27] MEDS: Lactated Ringer's 1,000 ML IV SCH ×2 (00:19→16:52)
[2021-08-27 04:30] LABS: BUN (Urea Nitrogen) 9 mg/dL (8.4-25.7); Calc. Creatinine Clearance 188 mL/min (70-130); Calcium 8.1 mg/dL (7.8-10.44); Carbon Dioxide 25 mmol/L (22-29); Glucose 230 mg/dL (70-105)
[2021-08-27 04:41] LABS: Anion Gap 10 mmol/L (10-20); Chloride 106 mmol/L (98-107); Sodium 135 mmol/L (136-145)
[2021-08-27 04:50] LABS: #Eosinphils 0.1 thou/uL (0.0-0.7); #Lymphocytes 1.3 thou/uL (1.20-3.40); #Monocytes 0.4 thou/uL (0.11-0.59); #Neutrophils 1.7 thou/uL (1.40-6.50); %Basophils 0.5 % (0.0-1.0); %Eosinophils 3.9 % (0.0-10.0); %Lymphocytes 36.4 % (21.0-51.0); %Neutrophils 49.2 % (42.0-75.0); Band 3 % (5-11); Eosinophils 4 % (0-10); Hemoglobin 14.3 g/dL (14.0-18.0); Lymphocytes 44 % (21-51); MDiff Complete? YES; Mean Corpuscular HGB CONC 34.7 g/dL (32.0-36.0); Mean Corpuscular Hemoglobin 33.4 pg (27.0-31.0); Mean Corpuscular Volume 96.2 fL (78.0-98.0); Mean Platelet Volume 9.7 fL (7.4-10.4); Monocytes 4 % (0-10); Neutrophil 45 % (42-75); Platelet Count 47 thou/uL (130-400); Platelet Morphology Comment Appears Decreased; RBC Morphology Normal; Red Blood Cell (RBC) Count 4.29 mill/uL (4.70-6.10); White Blood Cell (WBC) Count 3.5 thou/uL (4.8-10.8)
[2021-08-27] MEDS: HumaLOG 300 UNITS/3 ML VIAL SC PRN ×4 (05:11→20:19)
[2021-08-27] MEDS: Amlodipine 5 MG TAB PO SCH (08:47)
[2021-08-27] MEDS: Pantoprazole 40 MG VIAL IVP SCH ×2 (08:48→20:18)
[2021-08-27] MEDS ORDERED: metFORMIN 500 MG TAB PO SCH (17:45)
[2021-08-28 04:49] LABS: #Basophils 0.1 thou/uL (0.0-0.2); #Eosinphils 0.2 thou/uL (0.0-0.7); #Lymphocytes 1.6 thou/uL (1.20-3.40); #Monocytes 0.4 thou/uL (0.11-0.59); #Neutrophils 1.5 thou/uL (1.40-6.50); %Basophils 1.6 % (0.0-1.0); %Eosinophils 5.1 % (0.0-10.0); %Lymphocytes 43.1 % (21.0-51.0); %Monocytes 9.8 % (0.0-10.0); %Neutrophils 40.5 % (42.0-75.0); Hemoglobin 14.2 g/dL (14.0-18.0); Mean Corpuscular HGB CONC 35.4 g/dL (32.0-36.0); Mean Corpuscular Hemoglobin 34.1 pg (27.0-31.0); Mean Corpuscular Volume 96.3 fL (78.0-98.0); Mean Platelet Volume 9.5 fL (7.4-10.4); Platelet Count 47 thou/uL (130-400); Red Blood Cell (RBC) Count 4.16 mill/uL (4.70-6.10); White Blood Cell (WBC) Count 3.6 thou/uL (4.8-10.8)
[2021-08-28 05:01] LABS: Anion Gap 11 mmol/L (10-20); BUN (Urea Nitrogen) 9 mg/dL (8.4-25.7); Calc. Creatinine Clearance 228 mL/min (70-130); Calcium 8.3 mg/dL (7.8-10.44); Carbon Dioxide 22 mmol/L (22-29); Chloride 108 mmol/L (98-107); Glucose 150 mg/dL (70-105); Potassium 3.7 mmol/L (3.5-5.1); Sodium 137 mmol/L (136-145)
[2021-08-28] MEDS: HumaLOG 300 UNITS/3 ML VIAL SC PRN ×3 (05:12→20:27)
[2021-08-28] MEDS: Amlodipine 5 MG TAB PO SCH (08:34)
[2021-08-28] MEDS: Pantoprazole 40 MG VIAL IVP SCH (08:35)
[2021-08-28] MEDS: metFORMIN 500 MG TAB PO SCH ×2 (08:35→17:07)
[2021-08-29 04:23] LABS: #Eosinphils 0.2 thou/uL (0.0-0.7); #Lymphocytes 1.5 thou/uL (1.20-3.40); #Monocytes 0.4 thou/uL (0.11-0.59); #Neutrophils 1.4 thou/uL (1.40-6.50); %Basophils 0.9 % (0.0-1.0); %Eosinophils 5.4 % (0.0-10.0); %Lymphocytes 41.9 % (21.0-51.0); %Monocytes 12.8 % (0.0-10.0); Hemoglobin 13.7 g/dL (14.0-18.0); Mean Corpuscular HGB CONC 35.5 g/dL (32.0-36.0); Mean Corpuscular Hemoglobin 34.1 pg (27.0-31.0); Mean Platelet Volume 9.3 fL (7.4-10.4); Platelet Count 48 thou/uL (130-400); Red Blood Cell (RBC) Count 4.01 mill/uL (4.70-6.10); White Blood Cell (WBC) Count 3.5 thou/uL (4.8-10.8)
[2021-08-29 04:36] LABS: ALT (SGPT) 20 U/L (8-55); AST (SGOT) 26 U/L (5-34); Albumin 2.4 g/dL (3.5-5.0); Alkaline Phosphatase 77 U/L (40-110); Anion Gap 9 mmol/L (10-20); BUN (Urea Nitrogen) 7 mg/dL (8.4-25.7); Bilirubin, Total 2.3 mg/dL (0.2-1.2); Calc. Creatinine Clearance 203 mL/min (70-130); Calcium 8.4 mg/dL (7.8-10.44); Carbon Dioxide 24 mmol/L (22-29); Chloride 108 mmol/L (98-107); Globulin 2.9 g/dL (2.4-3.5); Glucose 162 mg/dL (70-105); Potassium 3.8 mmol/L (3.5-5.1); Protein, Total 5.3 g/dL (6.0-8.3); Sodium 137 mmol/L (136-145)
[2021-08-29] MEDS: HumaLOG 300 UNITS/3 ML VIAL SC PRN ×2 (05:15→12:36)
[2021-08-29] MEDS: metFORMIN 500 MG TAB PO SCH (08:16)
[2021-08-29] MEDS: Amlodipine 5 MG TAB PO SCH (08:17)
[2021-08-29 12:33] VITALS: BP 156/72; TEMP 98
== END 2021-08-29 13:53 | disposition home or self-care (01) | DRG 442 ==
LOC: ERS 02:02 → T4-A 05:16
PROVIDERS: ADMIT Student in an Organized Health Care Education/Training Program; ATTEND Hospitalist
PROC: 0DJ08ZZ Inspection of Upper Intestinal Tract, Via Natural or Artificial Opening Endoscopic (ICD-10-PCS; principal; 2021-08-26)
DX: K72.00 Acute and subacute hepatic failure without coma (principal); Z20.822 Contact with and (suspected) exposure to COVID-19; K76.6 Portal hypertension; K92.0 Hematemesis; E72.20 Disorder of urea cycle metabolism, unspecified; K31.89 Other diseases of stomach and duodenum; K70.30 Alcoholic cirrhosis of liver without ascites; I10 Essential (primary) hypertension; E66.9 Obesity, unspecified; D69.59 Other secondary thrombocytopenia; E11.65 Type 2 diabetes mellitus with hyperglycemia; Z88.1 Allergy status to other antibiotic agents; Z87.891 Personal history of nicotine dependence; Z79.84 Long term (current) use of oral hypoglycemic drugs; Z83.3 Family history of diabetes mellitus; Z82.3 Family history of stroke; Z68.39 Body mass index [BMI] 39.0-39.9, adult; Z98.890 Other specified postprocedural states; Z91.19 Patient's noncompliance with other medical treatment and regimen
CPT/HCPCS: 36415; 36416; 76700; 80048; 80053; 82105; 82140; 82274; 83735; 85025; 85610; 85730; 93005; 96374; C9113; J1815; J2354; J2370; J2405; J2704; J3475; J7050; J7120; U0002

== ENCOUNTER 2021-09-28 10:33 | Inpatient (IN) | payer SELFPAY ==
[2021-09-28 11:40] LABS: #Eosinphils 0.1 thou/uL (0.0-0.7); #Lymphocytes 1.4 thou/uL (1.20-3.40); #Monocytes 0.3 thou/uL (0.11-0.59); #Neutrophils 2.4 thou/uL (1.40-6.50); %Basophils 0.5 % (0.0-1.0); %Lymphocytes 32.2 % (21.0-51.0); %Monocytes 7.9 % (0.0-10.0); %Neutrophils 57.4 % (42.0-75.0); Hemoglobin 15.7 g/dL (14.0-18.0); Mean Corpuscular HGB CONC 35.8 g/dL (32.0-36.0); Mean Corpuscular Hemoglobin 33.8 pg (27.0-31.0); Mean Corpuscular Volume 94.4 fL (78.0-98.0); Platelet Count 50 thou/uL (130-400); RBC Distribution Width 13.5 % (11.5-14.5); Red Blood Cell (RBC) Count 4.65 mill/uL (4.70-6.10); White Blood Cell (WBC) Count 4.3 thou/uL (4.8-10.8)
[2021-09-28 11:57] LABS: ALT (SGPT) 21 U/L (8-55); AST (SGOT) 23 U/L (5-34); Albumin 2.7 g/dL (3.5-5.0); Alkaline Phosphatase 133 U/L (40-110); Anion Gap 14 mmol/L (10-20); BUN (Urea Nitrogen) 9 mg/dL (8.4-25.7); Bilirubin, Total 2.8 mg/dL (0.2-1.2); Calc. Creatinine Clearance 0 mL/min (70-130); Calcium 8.9 mg/dL (7.8-10.44); Carbon Dioxide 19 mmol/L (22-29); Chloride 104 mmol/L (98-107); Globulin 3.6 g/dL (2.4-3.5); Glucose 272 mg/dL (70-105); Lipase 54 U/L (8-78); Potassium 4.7 mmol/L (3.5-5.1); Protein, Total 6.3 g/dL (6.0-8.3); Sodium 132 mmol/L (136-145)
[2021-09-28 16:05] LABS: Acetaminophen Less than 6.0 mcg/mL (10.0-30.0); Alcohol Less than 10 mg/dL (Less than 10); Salicylate Less than 8.0 mg/dL (15.0-30.0)
[2021-09-28 16:32] LABS: Bacteria/HPF None Seen HPF (None Seen); Bilirubin Negative (Negative); Blood, Urine Trace (Negative); Clarity Clear (Clear); Glucose, Urine (Dipstick) Greater than 1000 mg/dL (Negative); Ketone, Urine Negative (Negative); Leukocyte Negative Leu/uL (Negative); Nitrite Negative (Negative); Protein, Urine (Dipstick) 30 mg/dL (Neg-Trace); RBC/HPF 0-3 HPF (0-3); Specific Gravity, Urine 1.018 (1.002-1.036); Squamous Epithelial 0-3 HPF (0-3); WBC/HPF 0-3 HPF (0-3)
[2021-09-28 18:23] VITALS: BMI 36.8
[2021-09-28] MEDS ORDERED: Ondansetron PF 4 MG/2 ML Vial IVP PRN (22:37)
[2021-09-28] MEDS ORDERED: Acetaminophen 500 MG TAB PO PRN (22:39)
[2021-09-28] MEDS ORDERED: Dextrose 50% Abboject 50 ML SYRINGE SLOW IVP PRN (22:39)
[2021-09-28] MEDS ORDERED: Dextrose 5% in Water 1,000 ML IV PRN (22:39)
[2021-09-28] MEDS: HumaLOG 300 UNITS/3 ML VIAL SC PRN (23:09)
[2021-09-29] MEDS: HumaLOG 300 UNITS/3 ML VIAL SC PRN ×4 (05:33→21:17)
[2021-09-29 08:06] LABS: #Eosinphils 0.1 thou/uL (0.0-0.7); #Lymphocytes 1.3 thou/uL (1.20-3.40); #Monocytes 0.4 thou/uL (0.11-0.59); #Neutrophils 1.5 thou/uL (1.40-6.50); %Lymphocytes 39.3 % (21.0-51.0); %Monocytes 11.9 % (0.0-10.0); %Neutrophils 43.8 % (42.0-75.0); Hemoglobin 14.7 g/dL (14.0-18.0); Mean Corpuscular HGB CONC 36.4 g/dL (32.0-36.0); Mean Corpuscular Hemoglobin 34.4 pg (27.0-31.0); Mean Corpuscular Volume 94.5 fL (78.0-98.0); Mean Platelet Volume 9.9 fL (7.4-10.4); Platelet Count 44 thou/uL (130-400); RBC Distribution Width 13.5 % (11.5-14.5); Red Blood Cell (RBC) Count 4.28 mill/uL (4.70-6.10); White Blood Cell (WBC) Count 3.4 thou/uL (4.8-10.8)
[2021-09-29 08:15] LABS: INR-International Normal Ratio 1.5; Prothrombin Time 18.8 sec (12.0-14.7)
[2021-09-29 08:16] LABS: PTT 43.4 sec (22.9-36.1)
[2021-09-29 08:19] LABS: Anion Gap 12 mmol/L (10-20); BUN (Urea Nitrogen) 8 mg/dL (8.4-25.7); Calc. Creatinine Clearance 221 mL/min (70-130); Calcium 8.7 mg/dL (7.8-10.44); Carbon Dioxide 20 mmol/L (22-29); Chloride 109 mmol/L (98-107); Glucose 167 mg/dL (70-105); Potassium 3.9 mmol/L (3.5-5.1); Sodium 137 mmol/L (136-145)
[2021-09-29] MEDS: Rifaximin 550 MG TAB PO SCH ×2 (08:41→21:10)
[2021-09-29] MEDS: metFORMIN 500 MG TAB PO SCH ×2 (08:42→21:08)
[2021-09-29] MEDS ORDERED: Non-Formulary Item 1 EACH (Metformin Hcl [Metformin Hcl] 1,000 MG Tablet) PO SCH (09:00)
[2021-09-29] MEDS ORDERED: Magnevist 469MG/ML 20 ML VIAL ONE (11:10)
[2021-09-29 11:21] LABS: SARS-CoV-2 PCR by NAA Not Detected (NotDetected)
[2021-09-30] MEDS: HumaLOG 300 UNITS/3 ML VIAL SC PRN ×3 (04:02→17:09)
[2021-09-30 04:35] LABS: #Basophils 0.1 thou/uL (0.0-0.2); #Eosinphils 0.2 thou/uL (0.0-0.7); #Lymphocytes 1.4 thou/uL (1.20-3.40); #Monocytes 0.4 thou/uL (0.11-0.59); #Neutrophils 1.9 thou/uL (1.40-6.50); %Basophils 1.4 % (0.0-1.0); %Eosinophils 3.8 % (0.0-10.0); %Lymphocytes 36.2 % (21.0-51.0); %Monocytes 11.3 % (0.0-10.0); %Neutrophils 47.3 % (42.0-75.0); Hemoglobin 14.6 g/dL (14.0-18.0); Mean Corpuscular HGB CONC 36.1 g/dL (32.0-36.0); Mean Corpuscular Hemoglobin 33.8 pg (27.0-31.0); Mean Corpuscular Volume 93.6 fL (78.0-98.0); Mean Platelet Volume 9.4 fL (7.4-10.4); Platelet Count 46 thou/uL (130-400); RBC Distribution Width 13.3 % (11.5-14.5); Red Blood Cell (RBC) Count 4.32 mill/uL (4.70-6.10); White Blood Cell (WBC) Count 3.9 thou/uL (4.8-10.8)
[2021-09-30 04:55] LABS: Anion Gap 15 mmol/L (10-20); BUN (Urea Nitrogen) 8 mg/dL (8.4-25.7); Calc. Creatinine Clearance 196 mL/min (70-130); Calcium 8.2 mg/dL (7.8-10.44); Carbon Dioxide 17 mmol/L (22-29); Chloride 105 mmol/L (98-107); Glucose 216 mg/dL (70-105); Potassium 3.7 mmol/L (3.5-5.1); Sodium 133 mmol/L (136-145)
[2021-09-30] MEDS: metFORMIN 500 MG TAB PO SCH ×2 (08:56→22:26)
[2021-09-30] MEDS: Rifaximin 550 MG TAB PO SCH ×2 (08:56→22:26)
[2021-10-01 04:46] LABS: Anion Gap 11 mmol/L (10-20); BUN (Urea Nitrogen) 7 mg/dL (8.4-25.7); Calc. Creatinine Clearance 209 mL/min (70-130); Calcium 8.5 mg/dL (7.8-10.44); Carbon Dioxide 22 mmol/L (22-29); Chloride 104 mmol/L (98-107); Glucose 219 mg/dL (70-105); Potassium 3.7 mmol/L (3.5-5.1); Sodium 133 mmol/L (136-145)
[2021-10-01 05:20] LABS: #Basophils 0.1 thou/uL (0.0-0.2); #Eosinphils 0.3 thou/uL (0.0-0.7); #Lymphocytes 1.6 thou/uL (1.20-3.40); #Monocytes 0.4 thou/uL (0.11-0.59); #Neutrophils 1.8 thou/uL (1.40-6.50); %Basophils 1.2 % (0.0-1.0); %Eosinophils 6.4 % (0.0-10.0); %Lymphocytes 38.8 % (21.0-51.0); %Monocytes 10.2 % (0.0-10.0); %Neutrophils 43.4 % (42.0-75.0); Hemoglobin 14.6 g/dL (14.0-18.0); Mean Corpuscular HGB CONC 35.3 g/dL (32.0-36.0); Mean Corpuscular Hemoglobin 33.1 pg (27.0-31.0); Mean Corpuscular Volume 93.7 fL (78.0-98.0); Mean Platelet Volume 9.8 fL (7.4-10.4); Platelet Count 50 thou/uL (130-400); RBC Distribution Width 13.5 % (11.5-14.5); Red Blood Cell (RBC) Count 4.41 mill/uL (4.70-6.10); White Blood Cell (WBC) Count 4.2 thou/uL (4.8-10.8)
[2021-10-01] MEDS: metFORMIN 500 MG TAB PO SCH (08:20)
[2021-10-01] MEDS: Rifaximin 550 MG TAB PO SCH (08:20)
[2021-10-01 09:30] VITALS: BP 147/77; TEMP 98.1
== END 2021-10-01 11:15 | disposition home or self-care (01) | DRG 442 ==
LOC: ERS 10:33 → T4-B 16:05
PROVIDERS: ADMIT Internal Medicine; ATTEND Internal Medicine
DX: K72.00 Acute and subacute hepatic failure without coma (principal); Z20.822 Contact with and (suspected) exposure to COVID-19; E87.1 Hypo-osmolality and hyponatremia; K72.10 Chronic hepatic failure without coma; E11.9 Type 2 diabetes mellitus without complications; K70.30 Alcoholic cirrhosis of liver without ascites; D69.6 Thrombocytopenia, unspecified; Z88.1 Allergy status to other antibiotic agents; Z79.899 Other long term (current) drug therapy; Z79.84 Long term (current) use of oral hypoglycemic drugs; Z83.3 Family history of diabetes mellitus; Z82.3 Family history of stroke; Z91.14 Patient's other noncompliance with medication regimen
CPT/HCPCS: 36415; 36416; 70450; 71045; 74183; 80048; 80053; 80307; 81003; 81015; 82140; 82550; 83690; 85025; 85610; 85730; 93005; A9579; J1815; U0003; U0005

== ENCOUNTER 2023-03-25 06:29 | Inpatient (IN) | payer OTHER, SELFPAY ==
[2023-03-25] MEDS ORDERED: Piperacillin/Tazobactam 4.5 GM VIAL ONE (07:12)
[2023-03-25 07:27] LABS: #Monocytes 0.3 thou/uL (0.11-0.59); %Basophils 0.2 % (0.0-1.0); %Eosinophils 0.6 % (0.0-10.0); %Monocytes 6.4 % (0.0-10.0); Hematocrit 36.7 % (42.0-52.0); Hemoglobin 13.2 g/dL (14.0-18.0); Mean Corpuscular Volume 91.8 fl (78.0-98.0); Mean Platelet Volume 11.4 fL (7.4-10.4); RBC Distribution Width 15.4 % (11.5-14.5); White Blood Cell (WBC) Count 5.1 10x3/uL (4.8-10.8)
[2023-03-25 07:34] LABS: Platelet Count 70 10x3/uL (130-400)
[2023-03-25 07:49] LABS: ALT (SGPT) 20 U/L (8-55); AST (SGOT) 26 U/L (5-34); Albumin 2.4 g/dL (3.5-5.0); Alkaline Phosphatase 177 U/L (40-110); Anion Gap 9 mmol/L (10-20); BUN (Urea Nitrogen) 9 mg/dL (8.4-25.7); Bilirubin, Total 2.3 mg/dL (0.2-1.2); Calc. Creatinine Clearance 0 mL/min (70-130); Calcium 9.2 mg/dL (7.8-10.44); Carbon Dioxide 23 mmol/L (22-29); Chloride 109 mmol/L (98-107); Estimated GFR 109; Globulin 3.4 g/dL (2.4-3.5); Glucose 255 mg/dL (70-105); Lipase 32 U/L (8-78); Magnesium 1.7 mg/dL (1.6-2.6); Potassium 4.3 mmol/L (3.5-5.1); Protein, Total 5.8 g/dL (6.0-8.3); Sodium 137 mmol/L (136-145)
[2023-03-25 07:50] LABS: INR-International Normal Ratio 1.5; Prothrombin Time 18.5 sec (12.0-14.7)
[2023-03-25] MEDS ORDERED: Ondansetron PF 4 MG/2 ML Vial ONE (08:01)
[2023-03-25] MEDS ORDERED: Ondansetron PF 4 MG/2 ML Vial IVP PRN (08:35)
[2023-03-25] MEDS ORDERED: Dextrose 50% Abboject 50 ML SYRINGE SLOW IVP PRN (08:44)
[2023-03-25] MEDS ORDERED: Dextrose 5% in Water 1,000 ML IV PRN (08:44)
[2023-03-25] MEDS ORDERED: Glucagon 1 MG/ML KIT IM PRN (08:44)
[2023-03-25 10:41] VITALS: BMI 38.2
[2023-03-25] MEDS: Furosemide 20 MG TAB PO SCH (10:48)
[2023-03-25 11:00] LABS: Lactic Acid 3.2 mmol/L (0.5-2.2)
[2023-03-25] MEDS: HumaLOG 300 UNITS/3 ML VIAL SC PRN (17:16)
[2023-03-26 05:22] LABS: #Eosinphils 0.3 thou/uL (0.0-0.7); #Monocytes 0.4 thou/uL (0.11-0.59); #Neutrophils 1.8 thou/uL (1.40-6.50); %Basophils 0.7 % (0.0-1.0); %Eosinophils 6.2 % (0.0-10.0); %Lymphocytes 38.1 % (21.0-51.0); %Monocytes 10.4 % (0.0-10.0); %Neutrophils 44.4 % (42.0-75.0); Hemoglobin 11.3 g/dL (14.0-18.0); Mean Corpuscular HGB CONC 36.5 g/dL (32.0-36.0); Mean Corpuscular Hemoglobin 32.9 pg (27.0-31.0); Mean Corpuscular Volume 90.4 fl (78.0-98.0); Mean Platelet Volume 11.7 fL (7.4-10.4); RBC Distribution Width 15.2 % (11.5-14.5); Red Blood Cell (RBC) Count 3.43 mill/uL (4.70-6.10)
[2023-03-26 05:32] LABS: Platelet Count 59 10x3/uL (130-400)
[2023-03-26 06:00] LABS: ALT (SGPT) 18 U/L (8-55); AST (SGOT) 36 U/L (5-34); Albumin 1.8 g/dL (3.5-5.0); Alkaline Phosphatase 89 U/L (40-110); Anion Gap 10 mmol/L (10-20); BUN (Urea Nitrogen) 8 mg/dL (8.4-25.7); Calc. Creatinine Clearance 192 mL/min (70-130); Calcium 8.3 mg/dL (7.8-10.44); Carbon Dioxide 21 mmol/L (22-29); Chloride 110 mmol/L (98-107); Estimated GFR 111; Globulin 2.5 g/dL (2.4-3.5); Glucose 151 mg/dL (70-105); Potassium 4.1 mmol/L (3.5-5.1); Protein, Total 4.3 g/dL (6.0-8.3); Sodium 137 mmol/L (136-145)
[2023-03-26] MEDS: Spironolactone 25 MG TAB PO SCH (08:53)
[2023-03-26] MEDS: Furosemide 20 MG TAB PO SCH (08:53)
[2023-03-26] MEDS ORDERED: Rifaximin 200 MG TAB PO SCH (10:15)
[2023-03-26] MEDS: HumaLOG 300 UNITS/3 ML VIAL SC PRN (13:07)
[2023-03-26] MEDS: Rifaximin 200 MG TAB PO SCH (19:38)
[2023-03-27 07:52] VITALS: BP 134/72; TEMP 98.3
[2023-03-27] MEDS: Rifaximin 200 MG TAB PO SCH (09:40)
[2023-03-27] MEDS: Spironolactone 25 MG TAB PO SCH (09:40)
[2023-03-27] MEDS: Furosemide 20 MG TAB PO SCH (09:40)
== END 2023-03-27 12:15 | disposition home or self-care (01) | DRG 442 ==
LOC: ERS 06:29 → T4-A 08:26 → OBSVTOIN 03-26 09:18
PROVIDERS: ADMIT Internal Medicine; ATTEND Hospitalist
DX: K76.82 Hepatic encephalopathy (principal); E87.20 Acidosis, unspecified; E11.9 Type 2 diabetes mellitus without complications; I10 Essential (primary) hypertension; K74.60 Unspecified cirrhosis of liver; Z86.73 Personal history of transient ischemic attack (TIA), and cerebral infarction without residual deficits; K59.00 Constipation, unspecified; Z88.1 Allergy status to other antibiotic agents; Z79.84 Long term (current) use of oral hypoglycemic drugs; Z91.148 Patient's other noncompliance with medication regimen for other reason; Z79.899 Other long term (current) drug therapy; D69.59 Other secondary thrombocytopenia
CPT/HCPCS: 36415; 36416; 71045; 76705; 80053; 82140; 83605; 83690; 83735; 85025; 85610; 85730; 87040; 93005; 96365; 96375; G0378; J1815; J2405; J2543

== ENCOUNTER 2023-04-18 09:33 | Emergency (ER) | payer OTHER, SELFPAY ==
[2023-04-18] MEDS ORDERED: Iopamidol-370 76% 500 ML MDV (1 ML CHARGE) ONE (10:34)
[2023-04-18 12:55] LABS: #Eosinphils 0.2 thou/uL (0.0-0.7); #Monocytes 0.3 thou/uL (0.11-0.59); %Basophils 0.6 % (0.0-1.0); %Eosinophils 5.2 % (0.0-10.0); %Lymphocytes 31.4 % (21.0-51.0); %Monocytes 8.3 % (0.0-10.0); %Neutrophils 54.5 % (42.0-75.0); Hemoglobin 11.3 g/dL (14.0-18.0); Mean Corpuscular HGB CONC 35.9 g/dL (32.0-36.0); Mean Corpuscular Hemoglobin 33.3 pg (27.0-31.0); Mean Corpuscular Volume 92.9 fl (78.0-98.0); Mean Platelet Volume 11.1 fL (7.4-10.4); RBC Distribution Width 14.8 % (11.5-14.5); Red Blood Cell (RBC) Count 3.39 mill/uL (4.70-6.10); White Blood Cell (WBC) Count 3.6 10x3/uL (4.8-10.8)
[2023-04-18 12:58] LABS: Platelet Count 70 10x3/uL (130-400)
[2023-04-18 13:15] LABS: ALT (SGPT) 20 U/L (8-55); AST (SGOT) 31 U/L (5-34); Alkaline Phosphatase 99 U/L (40-110); Anion Gap 5 mmol/L (10-20); BUN (Urea Nitrogen) 8 mg/dL (8.4-25.7); Bilirubin, Total 1.5 mg/dL (0.2-1.2); Calc. Creatinine Clearance 0 mL/min (70-130); Calcium 8.2 mg/dL (7.8-10.44); Carbon Dioxide 24 mmol/L (22-29); Chloride 111 mmol/L (98-107); Estimated GFR 114; Globulin 2.7 g/dL (2.4-3.5); Glucose 125 mg/dL (70-105); Magnesium 1.5 mg/dL (1.6-2.6); Potassium 4.1 mmol/L (3.5-5.1); Protein, Total 4.7 g/dL (6.0-8.3); Sodium 136 mmol/L (136-145)
[2023-04-18] MEDS ORDERED: Magnesium 2 GM/50 ML BAG (IN WATER) ONE (13:37)
[2023-04-18] MEDS ORDERED: Apixaban 5 MG TAB PO SCH (13:45)
[2023-04-18 14:01] LABS: INR-International Normal Ratio 1.7; PTT 42.3 sec (22.9-36.1); Prothrombin Time 20.2 sec (12.0-14.7)
== END 2023-04-18 15:11 | disposition home or self-care (01) ==
LOC: ERS 09:33
DX: I82.402 Acute embolism and thrombosis of unspecified deep veins of left lower extremity (principal); D69.6 Thrombocytopenia, unspecified; I10 Essential (primary) hypertension; E11.9 Type 2 diabetes mellitus without complications; Z86.73 Personal history of transient ischemic attack (TIA), and cerebral infarction without residual deficits
CPT/HCPCS: 36415; 71045; 71275; 80053; 82140; 83605; 83735; 83880; 84484; 85025; 85610; 85730; 93005; 93970; 96365; J3475; Q9967

== ENCOUNTER 2023-04-24 14:09 | Observation (INO) | payer OTHER ==
[~2023-04-24 14:09] MED LIST changes: -FLU VACC QS2017-18 36 mo. & older 0.5 ML SYRINGE IM ONE; +Iopamidol-370 76% 500 ML MDV (1 ML CHARGE) ONE
[2023-04-24 15:40] LABS: #Eosinphils 0.2 thou/uL (0.0-0.7); #Monocytes 0.4 thou/uL (0.11-0.59); #Neutrophils 2.5 thou/uL (1.40-6.50); %Basophils 0.5 % (0.0-1.0); %Eosinophils 4.4 % (0.0-10.0); %Lymphocytes 28.4 % (21.0-51.0); %Neutrophils 57.2 % (42.0-75.0); Hematocrit 31.9 % (42.0-52.0); Hemoglobin 11.4 g/dL (14.0-18.0); Mean Corpuscular HGB CONC 35.7 g/dL (32.0-36.0); Mean Corpuscular Hemoglobin 32.9 pg (27.0-31.0); Mean Corpuscular Volume 91.9 fl (78.0-98.0); Mean Platelet Volume 10.8 fL (7.4-10.4); RBC Distribution Width 14.7 % (11.5-14.5); Red Blood Cell (RBC) Count 3.47 mill/uL (4.70-6.10); White Blood Cell (WBC) Count 4.3 10x3/uL (4.8-10.8)
[2023-04-24 15:41] LABS: Platelet Count 67 10x3/uL (130-400)
[2023-04-24 15:52] LABS: INR-International Normal Ratio 1.9; Prothrombin Time 22.9 sec (12.0-14.7)
[2023-04-24 15:53] LABS: PTT 44.7 sec (22.9-36.1)
[2023-04-24 16:03] LABS: ALT (SGPT) 19 U/L (8-55); AST (SGOT) 29 U/L (5-34); Alkaline Phosphatase 108 U/L (40-110); Anion Gap 9 mmol/L (10-20); BUN (Urea Nitrogen) 10 mg/dL (8.4-25.7); Bilirubin, Total 1.3 mg/dL (0.2-1.2); Calc. Creatinine Clearance 0 mL/min (70-130); Calcium 8.3 mg/dL (7.8-10.44); Carbon Dioxide 23 mmol/L (22-29); Chloride 109 mmol/L (98-107); Estimated GFR 105; Globulin 2.7 g/dL (2.4-3.5); Glucose 167 mg/dL (70-105); Potassium 3.9 mmol/L (3.5-5.1); Protein, Total 4.7 g/dL (6.0-8.3); Sodium 137 mmol/L (136-145)
[2023-04-24] MEDS ORDERED: LevoFLOXacin 750 mg/D5W 150 ml Premix Bag ONE (17:38)
[2023-04-24] MEDS ORDERED: Dextrose 50% Abboject 50 ML SYRINGE SLOW IVP PRN (18:29)
[2023-04-24] MEDS ORDERED: Dextrose 5% in Water 1,000 ML IV PRN (18:29)
[2023-04-24] MEDS ORDERED: HumaLOG 300 UNITS/3 ML VIAL SC PRN ×2 (18:29)
[2023-04-24] MEDS ORDERED: Glucagon 1 MG/ML KIT IM PRN (18:29)
[2023-04-24] MEDS ORDERED: Ondansetron PF 4 MG/2 ML Vial IVP PRN (18:29)
[2023-04-24] MEDS ORDERED: Ondansetron ODT 4 MG TAB PO PRN (18:29)
[2023-04-24] MEDS ORDERED: Furosemide 40 MG/4 ML VIAL SLOW IVP SCH (19:00)
[2023-04-24] MEDS ORDERED: VANCOMYCIN 2 GRAM/500 ML BAG 2 GM in Premix Bag 1 BAG IVPB SCH (19:45)
[2023-04-24 21:23] VITALS: BMI 41.8
[2023-04-25 05:04] LABS: #Eosinphils 0.2 thou/uL (0.0-0.7); #Monocytes 0.4 thou/uL (0.11-0.59); #Neutrophils 2.2 thou/uL (1.40-6.50); %Basophils 0.3 % (0.0-1.0); %Eosinophils 4.4 % (0.0-10.0); %Lymphocytes 27.6 % (21.0-51.0); %Monocytes 11.1 % (0.0-10.0); %Neutrophils 56.3 % (42.0-75.0); Hematocrit 30.2 % (42.0-52.0); Hemoglobin 10.5 g/dL (14.0-18.0); Mean Corpuscular HGB CONC 34.8 g/dL (32.0-36.0); Mean Corpuscular Hemoglobin 32.1 pg (27.0-31.0); Mean Corpuscular Volume 92.4 fl (78.0-98.0); RBC Distribution Width 14.6 % (11.5-14.5); Red Blood Cell (RBC) Count 3.27 mill/uL (4.70-6.10); White Blood Cell (WBC) Count 3.9 10x3/uL (4.8-10.8)
[2023-04-25 05:10] LABS: Platelet Count 61 10x3/uL (130-400)
[2023-04-25 05:27] LABS: Anion Gap 8 mmol/L (10-20); BUN (Urea Nitrogen) 9 mg/dL (8.4-25.7); Calc. Creatinine Clearance 204 mL/min (70-130); Calcium 8.4 mg/dL (7.8-10.44); Carbon Dioxide 23 mmol/L (22-29); Chloride 111 mmol/L (98-107); Estimated GFR 110; Glucose 101 mg/dL (70-105); Potassium 3.9 mmol/L (3.5-5.1); Sodium 138 mmol/L (136-145)
[2023-04-25] MEDS ORDERED: Furosemide 20 MG TAB PO SCH (09:00)
[2023-04-25] MEDS ORDERED: Spironolactone 25 MG TAB PO SCH (09:00)
[2023-04-25] MEDS ORDERED: metFORMIN 500 MG TAB PO SCH (09:00)
[2023-04-25] MEDS ORDERED: Non-Formulary Item 1 EACH (Metformin Hcl [Metformin Hcl] 1,000 MG Tablet) PO SCH (09:00)
[2023-04-25 11:49] VITALS: BP 152/69; TEMP 97.9
[2023-04-25] MEDS ORDERED: LevoFLOXacin 750 mg/D5W 750 MG in Premix Bag 1 BAG IVPB SCH (18:00)
[2023-04-25] MEDS ORDERED: Apixaban 5 MG TAB PO SCH (21:00)
== END 2023-04-25 13:53 | disposition home or self-care (01) ==
LOC: ERS 14:09 → 2NO 17:20 → INTOOBSV 17:20
PROVIDERS: ADMIT Family Medicine; ATTEND Internal Medicine
DX: J90 Pleural effusion, not elsewhere classified (principal); R18.8 Other ascites; K74.60 Unspecified cirrhosis of liver; I10 Essential (primary) hypertension; E11.9 Type 2 diabetes mellitus without complications; J18.9 Pneumonia, unspecified organism; D61.818 Other pancytopenia; R06.00 Dyspnea, unspecified; Z86.73 Personal history of transient ischemic attack (TIA), and cerebral infarction without residual deficits; Z88.1 Allergy status to other antibiotic agents; Z79.84 Long term (current) use of oral hypoglycemic drugs; Z79.899 Other long term (current) drug therapy; Z86.718 Personal history of other venous thrombosis and embolism
CPT/HCPCS: 36415; 36416; 71045; 71275; 80048; 80053; 82140; 83880; 84145; 85025; 85610; 85730; 93005; 96365; 96366; G0378; J1940; J1956; J3370; Q9967

== ENCOUNTER 2023-06-26 14:33 | Outpatient (CLI) | payer OTHER | END 2023-06-26 14:34 | disposition home or self-care (01) | LOC: RAD 14:33 | PROVIDERS: ATTEND Internal Medicine | DX: J91.8 Pleural effusion in other conditions classified elsewhere (principal); J98.4 Other disorders of lung | CPT/HCPCS: 71046 ==

== ENCOUNTER 2023-07-10 06:45 | Inpatient (IN) | payer OTHER ==
[2023-07-10 07:31] LABS: #Basophils 0.1 thou/uL (0.0-0.2); #Eosinphils 0.4 thou/uL (0.0-0.7); #Monocytes 0.5 thou/uL (0.11-0.59); #Neutrophils 4.8 thou/uL (1.40-6.50); %Basophils 0.7 % (0.0-1.0); %Eosinophils 5.3 % (0.0-10.0); %Lymphocytes 19.6 % (21.0-51.0); %Monocytes 7.1 % (0.0-10.0); %Neutrophils 66.7 % (42.0-75.0); Hematocrit 35.9 % (42.0-52.0); Hemoglobin 12.7 g/dL (14.0-18.0); Mean Corpuscular HGB CONC 35.4 g/dL (32.0-36.0); Mean Corpuscular Hemoglobin 32.9 pg (27.0-31.0); Mean Platelet Volume 11.2 fL (7.4-10.4); Platelet Count 109 10x3/uL (130-400); RBC Distribution Width 15.8 % (11.5-14.5); Red Blood Cell (RBC) Count 3.86 mill/uL (4.70-6.10); White Blood Cell (WBC) Count 7.2 10x3/uL (4.8-10.8)
[2023-07-10 07:59] LABS: Bilirubin Negative (Negative); Blood, Urine 3+ (Negative); CAUTI Indications for Culture Dysuria,urgency,freq; Glucose, Urine (Dipstick) 30 mg/dL (Negative); Ketone, Urine Trace mg/dL (Negative); Leukocyte Negative Leu/uL (Negative); Nitrite Negative (Negative); Protein, Urine (Dipstick) 300 mg/dL (Neg-Trace); RBC/HPF 21-50 HPF (0-3); Specific Gravity, Urine 1.027 (1.002-1.036); Squamous Epithelial 0-3 HPF (0-3)
[2023-07-10 08:00] LABS: Troponin I 0.012 ng/mL (< 0.028)
[2023-07-10 08:01] LABS: Bacteria/HPF 1+ HPF (None Seen); Clarity Hazy (Clear)
[2023-07-10 08:01] LABS: ALT (SGPT) 16 U/L (8-55); AST (SGOT) 24 U/L (5-34); Albumin 2.6 g/dL (3.5-5.0); Alkaline Phosphatase 89 U/L (40-110); Anion Gap 11 mmol/L (10-20); BUN (Urea Nitrogen) 13 mg/dL (8.4-25.7); Bilirubin, Total 2.4 mg/dL (0.2-1.2); Calc. Creatinine Clearance 0 mL/min (70-130); Calcium 9.1 mg/dL (7.8-10.44); Carbon Dioxide 20 mmol/L (22-29); Chloride 109 mmol/L (98-107); Estimated GFR 106; Globulin 4.1 g/dL (2.4-3.5); Glucose 155 mg/dL (70-105); Lipase 38 U/L (8-78); Protein, Total 6.7 g/dL (6.0-8.3); Sodium 136 mmol/L (136-145)
[2023-07-10 08:02] LABS: Urine Culture Reflex No No
[2023-07-10] MEDS ORDERED: Ondansetron PF 4 MG/2 ML Vial ONE (08:51)
[2023-07-10] MEDS ORDERED: Nitrofurantoin Monohyd/M-Cryst 100 MG CAP ONE (08:51)
[2023-07-10] MEDS ORDERED: Ondansetron PF 4 MG/2 ML Vial IVP PRN (09:38)
[2023-07-10] MEDS ORDERED: Calcium Carbonate 500 MG ChewTAB PO PRN (09:38)
[2023-07-10] MEDS ORDERED: Ondansetron ODT 4 MG TAB PO PRN (09:38)
[2023-07-10] MEDS ORDERED: Labetalol HCl 100 MG/20 ML VIAL SLOW IVP PRN (10:02)
[2023-07-10] MEDS ORDERED: hydrALAZINE 20 MG/ML VIAL SLOW IVP PRN (10:02)
[2023-07-10] MEDS ORDERED: HumaLOG 300 UNITS/3 ML VIAL SC PRN ×2 (10:06)
[2023-07-10] MEDS ORDERED: Dextrose 50% Abboject 50 ML SYRINGE SLOW IVP PRN (10:06)
[2023-07-10] MEDS ORDERED: Glucagon 1 MG/ML KIT IM PRN (10:06)
[2023-07-10] MEDS ORDERED: Dextrose 5% in Water 1,000 ML IV PRN (10:06)
[2023-07-10 10:19] VITALS: BMI 35.9
[2023-07-10] MEDS: Dextrose 5%-Lactated Ringers 1,000 ML IV SCH ×2 (10:42→23:57)
[2023-07-10] MEDS ORDERED: Rifaximin 200 MG TAB PO SCH (11:00)
[2023-07-10] MEDS: Pantoprazole 40 MG VIAL IVP SCH (20:20)
[2023-07-10] MEDS: Rifaximin 200 MG TAB PO SCH (20:20)
[2023-07-10] MEDS ORDERED: Pantoprazole 40 MG VIAL IVP SCH (21:00)
[2023-07-10] MEDS ORDERED: Apixaban 5 MG TAB PO SCH (21:00)
[2023-07-11 06:19] LABS: #Eosinphils 0.4 thou/uL (0.0-0.7); #Monocytes 0.4 thou/uL (0.11-0.59); #Neutrophils 1.5 thou/uL (1.40-6.50); %Basophils 0.9 % (0.0-1.0); %Eosinophils 10.4 % (0.0-10.0); %Lymphocytes 31.1 % (21.0-51.0); %Monocytes 12.1 % (0.0-10.0); %Neutrophils 45.2 % (42.0-75.0); Hematocrit 28.6 % (42.0-52.0); Hemoglobin 10.2 g/dL (14.0-18.0); Mean Corpuscular HGB CONC 35.7 g/dL (32.0-36.0); Mean Corpuscular Hemoglobin 33.3 pg (27.0-31.0); Mean Corpuscular Volume 93.5 fl (78.0-98.0); Mean Platelet Volume 10.9 fL (7.4-10.4); RBC Distribution Width 15.5 % (11.5-14.5); Red Blood Cell (RBC) Count 3.06 mill/uL (4.70-6.10); White Blood Cell (WBC) Count 3.4 10x3/uL (4.8-10.8)
[2023-07-11 06:44] LABS: ALT (SGPT) 14 U/L (8-55); AST (SGOT) 19 U/L (5-34); Albumin 1.9 g/dL (3.5-5.0); Alkaline Phosphatase 60 U/L (40-110); Anion Gap 9 mmol/L (10-20); BUN (Urea Nitrogen) 7 mg/dL (8.4-25.7); Bilirubin, Total 2.1 mg/dL (0.2-1.2); Calc. Creatinine Clearance 164 mL/min (70-130); Calcium 8.5 mg/dL (7.8-10.44); Carbon Dioxide 23 mmol/L (22-29); Chloride 110 mmol/L (98-107); Estimated GFR 107; Globulin 3.1 g/dL (2.4-3.5); Glucose 146 mg/dL (70-105); Magnesium 1.5 mg/dL (1.6-2.6); Phosphorus 2.8 mg/dL (2.3-4.7); Potassium 3.6 mmol/L (3.5-5.1); Sodium 138 mmol/L (136-145)
[2023-07-11 07:23] LABS: Platelet Count 70 10x3/uL (130-400)
[2023-07-11] MEDS: Rifaximin 200 MG TAB PO SCH (08:43)
[2023-07-11] MEDS: Pantoprazole 40 MG VIAL IVP SCH (08:44)
[2023-07-11 17:07] VITALS: BP 174/68; TEMP 97.3
== END 2023-07-11 18:09 | disposition home or self-care (01) | DRG 442 ==
LOC: ERS 06:45 → ERHOLD 09:36 → T4-A 12:42
PROVIDERS: ADMIT Internal Medicine; ATTEND Internal Medicine
DX: K76.82 Hepatic encephalopathy (principal); N39.0 Urinary tract infection, site not specified; I10 Essential (primary) hypertension; K70.30 Alcoholic cirrhosis of liver without ascites; E11.9 Type 2 diabetes mellitus without complications; Z86.73 Personal history of transient ischemic attack (TIA), and cerebral infarction without residual deficits; Z98.890 Other specified postprocedural states; Z88.1 Allergy status to other antibiotic agents; Z79.84 Long term (current) use of oral hypoglycemic drugs; Z79.899 Other long term (current) drug therapy; E86.0 Dehydration; Z86.718 Personal history of other venous thrombosis and embolism; Z79.4 Long term (current) use of insulin; E66.9 Obesity, unspecified; Z68.36 Body mass index [BMI] 36.0-36.9, adult; Z79.01 Long term (current) use of anticoagulants
CPT/HCPCS: 36415; 36416; 70450; 80053; 81001; 82140; 83630; 83690; 83735; 84100; 84484; 85025; 87086; 87324; 87449; 93005; C9113; J1815; J2405

== ENCOUNTER 2023-10-29 02:39 | Inpatient (IN) | payer OTHER, SELFPAY ==
[2023-10-29 05:10] LABS: #Monocytes 0.3 thou/uL (0.11-0.59); #Neutrophils 4.2 thou/uL (1.40-6.50); %Basophils 0.4 % (0.0-1.0); %Eosinophils 0.6 % (0.0-10.0); %Lymphocytes 10.7 % (21.0-51.0); %Monocytes 5.7 % (0.0-10.0); %Neutrophils 82.2 % (42.0-75.0); Hematocrit 33.1 % (42.0-52.0); Mean Corpuscular HGB CONC 36.3 g/dL (32.0-36.0); Mean Corpuscular Hemoglobin 32.8 pg (27.0-31.0); Mean Corpuscular Volume 90.4 fl (78.0-98.0); RBC Distribution Width 15.1 % (11.5-14.5); Red Blood Cell (RBC) Count 3.66 mill/uL (4.70-6.10); White Blood Cell (WBC) Count 5.1 10x3/uL (4.8-10.8)
[2023-10-29 05:22] LABS: ALT (SGPT) 17 U/L (8-55); AST (SGOT) 21 U/L (5-34); Albumin 2.5 g/dL (3.5-5.0); Alkaline Phosphatase 128 U/L (40-110); Anion Gap 9 mmol/L (10-20); BUN (Urea Nitrogen) 8 mg/dL (8.4-25.7); Bilirubin, Total 2.2 mg/dL (0.2-1.2); Calc. Creatinine Clearance 0 mL/min (70-130); Calcium 9.5 mg/dL (7.8-10.44); Carbon Dioxide 21 mmol/L (22-29); Chloride 111 mmol/L (98-107); Estimated GFR 107; Globulin 3.4 g/dL (2.4-3.5); Glucose 229 mg/dL (70-105); Lipase 33 U/L (8-78); Magnesium 1.7 mg/dL (1.6-2.6); Protein, Total 5.9 g/dL (6.0-8.3); Sodium 137 mmol/L (136-145)
[2023-10-29 05:25] LABS: Troponin I 0.048 ng/mL (< 0.028)
[2023-10-29 05:27] LABS: INR-International Normal Ratio 1.7; PTT 39.3 sec (22.9-36.1); Prothrombin Time 20.4 sec (12.0-14.7)
[2023-10-29 05:40] LABS: Platelet Count 71 10x3/uL (130-400)
[2023-10-29 06:48] LABS: Bacteria/HPF None Seen HPF (None Seen); Bilirubin Negative (Negative); Blood, Urine 3+ (Negative); CAUTI Indications for Culture Alt mental st,lethar; Clarity Clear (Clear); Glucose, Urine (Dipstick) 200 mg/dL (Negative); Ketone, Urine Negative (Negative); Leukocyte Negative Leu/uL (Negative); Nitrite Negative (Negative); Protein, Urine (Dipstick) 300 mg/dL (Neg-Trace); RBC/HPF 21-50 HPF (0-3); Specific Gravity, Urine 1.012 (1.002-1.036); Squamous Epithelial 0-3 HPF (0-3); WBC/HPF 0-3 HPF (0-3); pH, Urine 6.5 (5.0-9.0)
[2023-10-29 06:50] LABS: Urine Culture Reflex No No
[2023-10-29 07:06] LABS: Anisocytosis SLIGHT = 6-15 cells (100X) (0-5/hpf); Macrocytosis SLIGHT = 6-15 cells (100X) (0-5/hpf)
[2023-10-29 07:07] LABS: Platelet Adequacy Comment Appears Decreased
[2023-10-29 08:11] LABS: Lactic Acid 2.7 mmol/L (0.5-2.2)
[2023-10-29] MEDS ORDERED: Lactulose 20 GM (30 mL) UDCUP ONE (08:59)
[2023-10-29] MEDS ORDERED: Boostrix 0.5 ML (Tdap) VIAL (>/=7 yrs of age) ONE (09:00)
[2023-10-29] MEDS ORDERED: Ondansetron PF 4 MG/2 ML Vial IVP PRN (10:27)
[2023-10-29] MEDS ORDERED: Ondansetron ODT 4 MG TAB PO PRN (10:27)
[2023-10-29] MEDS ORDERED: Dextrose 50% Abboject 50 ML SYRINGE SLOW IVP PRN (10:28)
[2023-10-29] MEDS ORDERED: Dextrose 5% in Water 1,000 ML IV PRN (10:28)
[2023-10-29] MEDS ORDERED: HumaLOG 300 UNITS/3 ML VIAL SC PRN (10:28)
[2023-10-29] MEDS ORDERED: Glucagon 1 MG/ML KIT IM PRN (10:28)
[2023-10-29 16:49] VITALS: BMI 30.4
[2023-10-29] MEDS: Chlorhexidine Gluconate 15 ML UDCUP SSP SCH (17:16)
[2023-10-29] MEDS: Lactulose 20 GM (30 mL) UDCUP PO SCH (17:17)
[2023-10-29] MEDS: Furosemide 20 MG TAB PO SCH (18:18)
[2023-10-30] MEDS: Acetaminophen 500 MG TAB PO SCH (00:56)
[2023-10-30 01:33] LABS: Bacteria/HPF None Seen HPF (None Seen); Bilirubin Negative (Negative); Blood, Urine 3+ (Negative); CAUTI Indications for Culture Fever or rigors; Clarity Clear (Clear); Glucose, Urine (Dipstick) 50 mg/dL (Negative); Ketone, Urine Negative (Negative); Leukocyte Negative Leu/uL (Negative); Nitrite Negative (Negative); Protein, Urine (Dipstick) 200 mg/dL (Neg-Trace); Specific Gravity, Urine 1.016 (1.002-1.036); Squamous Epithelial 0-3 HPF (0-3); Urobilinogen 3 mg/dL (Less than 2); WBC/HPF 0-3 HPF (0-3); pH, Urine 5.5 (5.0-9.0)
[2023-10-30 01:34] LABS: Urine Culture Reflex No No
[2023-10-30 02:53] LABS: SARS-CoV-2 NAA Rapid Test Not Detected (NotDetected)
[2023-10-30 03:41] LABS: #Monocytes 0.7 thou/uL (0.11-0.59); #Neutrophils 8.6 thou/uL (1.40-6.50); %Basophils 0.2 % (0.0-1.0); %Eosinophils 0.1 % (0.0-10.0); %Lymphocytes 3.4 % (21.0-51.0); %Monocytes 6.7 % (0.0-10.0); %Neutrophils 89.1 % (42.0-75.0); Hematocrit 32.3 % (42.0-52.0); Hemoglobin 11.7 g/dL (14.0-18.0); Mean Corpuscular HGB CONC 36.2 g/dL (32.0-36.0); Mean Platelet Volume 10.7 fL (7.4-10.4); RBC Distribution Width 15.1 % (11.5-14.5); Red Blood Cell (RBC) Count 3.55 mill/uL (4.70-6.10); White Blood Cell (WBC) Count 9.6 10x3/uL (4.8-10.8)
[2023-10-30 04:00] LABS: Platelet Count 52 10x3/uL (130-400)
[2023-10-30 04:02] LABS: ALT (SGPT) 17 U/L (8-55); AST (SGOT) 24 U/L (5-34); Albumin 2.2 g/dL (3.5-5.0); Alkaline Phosphatase 79 U/L (40-110); Anion Gap 9 mmol/L (10-20); BUN (Urea Nitrogen) 13 mg/dL (8.4-25.7); Bilirubin, Total 2.6 mg/dL (0.2-1.2); Calc. Creatinine Clearance 136 mL/min (70-130); Carbon Dioxide 19 mmol/L (22-29); Chloride 112 mmol/L (98-107); Estimated GFR 104; Globulin 2.8 g/dL (2.4-3.5); Glucose 184 mg/dL (70-105); Potassium 3.9 mmol/L (3.5-5.1); Sodium 136 mmol/L (136-145)
[2023-10-30] MEDS: Furosemide 40 MG TAB PO SCH (08:04)
[2023-10-30] MEDS: Spironolactone 25 MG TAB PO SCH (08:04)
[2023-10-30] MEDS: LevoFLOXacin 500 mg/D5W 500 MG in Premix 1 BAG IVPB SCH (12:39)
[2023-10-30] MEDS: Lactulose 20 GM (30 mL) UDCUP PO SCH (12:39)
[2023-10-30] MEDS: HumaLOG 300 UNITS/3 ML VIAL SC PRN (13:20)
[2023-10-31 04:36] LABS: #Eosinphils 0.2 thou/uL (0.0-0.7); #Monocytes 0.5 thou/uL (0.11-0.59); #Neutrophils 2.7 thou/uL (1.40-6.50); %Basophils 0.6 % (0.0-1.0); %Eosinophils 4.3 % (0.0-10.0); %Lymphocytes 25.2 % (21.0-51.0); %Monocytes 11.2 % (0.0-10.0); %Neutrophils 58.5 % (42.0-75.0); Hematocrit 26.9 % (42.0-52.0); Hemoglobin 9.6 g/dL (14.0-18.0); Mean Corpuscular HGB CONC 35.7 g/dL (32.0-36.0); Mean Corpuscular Hemoglobin 32.7 pg (27.0-31.0); Mean Corpuscular Volume 91.5 fl (78.0-98.0); RBC Distribution Width 15.2 % (11.5-14.5); Red Blood Cell (RBC) Count 2.94 mill/uL (4.70-6.10); White Blood Cell (WBC) Count 4.6 10x3/uL (4.8-10.8)
[2023-10-31 04:57] LABS: Anion Gap 8 mmol/L (10-20); BUN (Urea Nitrogen) 14 mg/dL (8.4-25.7); Calc. Creatinine Clearance 149 mL/min (70-130); Calcium 8.5 mg/dL (7.8-10.44); Carbon Dioxide 21 mmol/L (22-29); Chloride 109 mmol/L (98-107); Estimated GFR 107; Glucose 156 mg/dL (70-105); Magnesium 1.7 mg/dL (1.6-2.6); Potassium 3.7 mmol/L (3.5-5.1); Sodium 134 mmol/L (136-145)
[2023-10-31 05:12] LABS: Platelet Count 47 10x3/uL (130-400)
[2023-10-31] MEDS: Vancomycin (BATCH) 2 GM in Premix 1 BAG IVPB SCH (14:16)
[2023-10-31] MEDS ORDERED: Vancomycin 1 GM in Premix 1 BAG IVPB SCH (21:00)
[2023-10-31] MEDS: Vancomycin 1 GM in Premix 1 BAG IVPB SCH (21:52)
[2023-11-01 07:48] VITALS: BP 163/72; TEMP 97.6
== END 2023-11-01 11:35 | disposition home or self-care (01) | DRG 441 ==
LOC: ERS 02:39 → 2SE 05:54 → ERHOLD 05:54 → 2SE 16:43
PROVIDERS: ADMIT Student in an Organized Health Care Education/Training Program; ATTEND Hospitalist
DX: K76.82 Hepatic encephalopathy (principal); G92.8 Other toxic encephalopathy; K76.6 Portal hypertension; E11.9 Type 2 diabetes mellitus without complications; Z88.1 Allergy status to other antibiotic agents; Z79.01 Long term (current) use of anticoagulants; Z79.899 Other long term (current) drug therapy; Z98.890 Other specified postprocedural states; Z87.891 Personal history of nicotine dependence; Z86.718 Personal history of other venous thrombosis and embolism; K70.31 Alcoholic cirrhosis of liver with ascites; Z11.52 Encounter for screening for COVID-19; Z79.4 Long term (current) use of insulin
CPT/HCPCS: 36415; 36416; 70450; 70486; 71045; 72125; 80048; 80053; 81001; 82140; 83605; 83690; 83735; 83880; 84484; 85025; 85610; 85730; 86140; 87040; 87077; 90471; 90715; 93005; J1815; J1956; J3370; J3370-JW